=== PATIENT | female | born 1965 | race Caucasian/White ===

== ENCOUNTER 2017-06-21 14:53 | Emergency (ER) | payer OTHER, SELFPAY ==
[2017-06-21 14:56] VITALS: BP 134/76; PULSE 71; RESP 16; TEMP 35.9; O2SAT 100; BMI 53.6
--- NOTE | 2017-06-21 15:32 | CT_ITS ---
STUDY: CT ABDOMEN AND PELVIS WITH CONTRAST REASON FOR EXAM: Female, 51 years old. Right-sided trauma. Fall 10 days ago. Pain RADIATION DOSAGE (If Supplied By Facility): CTDIvol = ( 17.07 ) mGy, DLP = ( 1270.48 ) mGycm TECHNIQUE: Transaxial images were obtained from the dome of the diaphragm to the symphysis pubis without oral contrast. 100 ml of Isovue 300 contrast was administered. Sagittal and coronal images were reconstructed. Individualized dose optimization techniques were used for this CT. COMPARISON: None. FINDINGS: The visualized lung bases are unremarkable. The visualized portions of the heart are within normal limits. There is hepatomegaly with diffuse hepatic enlargement. There are surgical clips in the gallbladder fossa consistent with a prior cholecystectomy. Normal spleen. Normal pancreas. Normal bilateral adrenal glands. Normal right kidney. Normal left kidney. There is a small hiatal hernia. Normal small intestine. Normal colon. The appendix is visualized and appears normal. Normal abdominal aorta. Normal inferior vena cava. Normal retroperitoneum. Normal urinary bladder. There is absence of the uterus consistent with a prior hysterectomy. There is no free fluid in the abdomen or pelvis. There is umbilical hernia containing fat. There are diffuse degenerative changes of the visualized lumbar spine. There is mild L1 compression fracture of uncertain age. CT/Abdomen/Pelvis W IV Cont ONLY IMPRESSION: Hepatomegaly. No mass. No solid organ injury. Small hiatal hernia. Mild L1 compression fracture of uncertain age. Electronically Signed: Geovanny Mg MD at 17:36 EDT , Service support ,
--- NOTE | 2017-06-21 16:03 | ED.DCSUM_ITS ---
- ER Visit Summary Date of Service: 06/21/17 Chief Complaint: Abdominal pain History of Present Illness: The patient is a 51 F states that 10 days ago she fell into her bathtub striking her right side on the top. She states she had some bruising. Her pain was improving until today when it abruptly came worse. She went to the urgent care and was sent to the hospital for evaluation. Patient denies any hematuria. No syncope. No other abdominal pain. States the bruising is gotten better. She states that the skin in the area feels numb . Physical Examination: Afebrile vital signs are stable Gen: Well-nourished well-developed Head: Normocephalic atraumatic Eyes: Perrl EOMI ENT: TMs clear no rhinorrhea moist mucous membranes Neck: Supple no lymphadenopathy no JVD nontender CVS: Regular rate rhythm no murmurs normal S1-S2 Respiratory: No distress clear to auscultation bilaterally chest nontender Abdomen: Soft to palpation in the right upper quadrant and the right lower ribs in the mid axillary line. Nondistended normal bowel sounds no masses Back: Nontender Extremity: Nontender no edema Skin: Normal color there is a small contusion that is greenish the right mid axillary line over the lower ribs. There are several small red isolated papules in the area that she is pointing to the is causing pain. They are not classic for shingles. Neuro: alert orientated ?3 CN II-XII intact normal strength sensation reflexes gait cerebellar Psych: Normal affect normal mood Test Results: CBC and BMP were within normal limits. CT the abdomen pelvis does not demonstrate any obvious trauma. Emergency Department Course and Treatment: Patient will be discharged home. Patient is to monitor for any rash consistent with shingles. Continue treatment with Tylenol or ibuprofen. Follow-up with her doctor Impression: 1. Right abdominal wall pain This note was generated with [employer] dictation software. It may contain incorrect words, spelling, and punctuation that were not noted in review of the chart prior to signing ED Disposition - Plan for ED Patient: Disposition: Home or Assisted Living Chief Complaint: Abd Pain Instructions: ED Abdominal Pain Unkn Cause Referrals: Kel Geronimo DO [Primary Care Provider] - 3-5 Days if not improving
[2017-06-21 16:14] LABS: Absolute Lymphocyte Count 2.05 X10^3/ul (0.83-4.51); Absolute Neutrophil Count 4.4 X10^3/uL (2.0-7.7); Basophil# 0.04 X10^3/uL; Basophil% 0.5 % (0-1); Eosinophil# 0.56 X10^3/uL; Eosinophils% 7.4 % (0-5); Hematocrit 38.5 % (37-47); Hemoglobin 12.4 g/dl (12.0-15.0); Lymphocyte # 2.05 X10^3/ul (4.0); Lymphocyte % 27.2 % (19-41); Mean Corp Hgb Conc 32.2 g/gl (32-36); Mean Corpuscular Hgb 31.6 pg (27.0-32.0); Mean Corpuscular Volume 98.2 fL (81-99); Mean Platelet Vol. 8.9 fl (6.2-12.0); Monocyte# 0.47 X10^3/uL; Monocyte% 6.2 % (0-10); Neutrophil # 4.41 X10^3/uL (2.7-7.7); Neutrophil % 58.4 % (47-70); Platelet Count 356 K/mm3 (150-450); RBC Distribution Width CV 13.2 % (11.6-14.6); RBC Distribution Width SD 46.3 fl (35.1-43.9); Red Blood Count 3.92 M/mm3 (4.2-5.4); White Blood Count 7.6 K/mm3 (4.4-11.0)
[2017-06-21 16:18] LABS: POSITIVE COUNT NO; POSITIVE DIFFERENTIAL NO; POSITIVE MORPHOLOGY NO
[2017-06-21 16:24] LABS: ALB/GLOB Ratio 1.1 RATIO (0.9-2.4); AST(SGOT) 18 U/L (15-37); Alanine Aminotransfer ALT/SGPT 28 U/L (13-56); Alkaline Phosphatase 117 U/L (45-117); Anion Gap 9 (5-15); BUN 25 mg/dL (7-18); BUN/Creat Ratio 27.1 RATIO (10-20); Calcium,Total 8.7 mg/dL (8.5-10.1); Chloride 108 mmol/L (98-107); Creatinine, Serum 0.92 mg/dL (0.55-1.02); EST Glomerular Filtration Rate 68 mL/min (>60); Est Glom Filt Rate - Afr Amer 82 mL/min (>60); Estimated Creatinine Clearance 67.72 ml/min; Globulin 3.5 g/dL (2.2-4.2); Glucose 99 mg/dL (74-106); Potassium 3.8 mmol/L (3.5-5.1); Protein, Total 7.5 g/dL (6.4-8.2); Sodium Level 143 mmol/L (136-145)
[2017-06-21 17:14] VITALS: BP 154/81; PULSE 87; RESP 18; O2SAT 99
[2017-06-21 18:29] VITALS: BP 141/81; PULSE 87; RESP 18; O2SAT 100
== END 2017-06-21 18:29 | disposition home or self-care (01) ==
PROVIDERS: Emergency Provider Emergency Medicine; Family Provider Preventive Medicine Occupational Medicine; PCP Preventive Medicine Occupational Medicine
DX: R10.9 Unspecified abdominal pain (principal); S20.211A Contusion of right front wall of thorax, initial encounter; R23.8 Other skin changes; W18.2XXA Fall in (into) shower or empty bathtub, initial encounter; Y93.9 Activity, unspecified; Y92.9 Unspecified place or not applicable; E66.9 Obesity, unspecified; Z90.49 Acquired absence of other specified parts of digestive tract
CPT/HCPCS: 74177; 80053; 85025; 99283; Q9967; A4216

== ENCOUNTER → 2017-06-23 16:22 | Outpatient (CLI) | payer OTHER, SELFPAY ==
[2017-06-30 14:07] LABS: Immunoglobulin A 199 mg/dL (87-352); Immunoglobulin G 891 mg/dL (700-1600); Immunoglobulin M 57 mg/dL (26-217)
[2017-07-01 11:34] LABS: Immunoglobulin E 1442 IU/mL (0-100)
== END ==
PROVIDERS: Family Provider Preventive Medicine Occupational Medicine; PCP Preventive Medicine Occupational Medicine; Visit Provider Internal Medicine Pulmonary Disease
DX: J18.9 Pneumonia, unspecified organism (principal); Z91.09 Other allergy status, other than to drugs and biological substances
CPT/HCPCS: 36415; 82784; 82785

== ENCOUNTER → 2017-10-21 07:42 | Outpatient (CLI) | payer OTHER, SELFPAY ==
[2017-10-21 10:04] LABS: Absolute Lymphocyte Count 1.51 X10^3/ul (0.83-4.51); Basophil# 0.03 X10^3/uL; Basophil% 0.6 % (0-1); Eosinophil# 0.49 X10^3/uL; Eosinophils% 9.1 % (0-5); Hematocrit 40.1 % (37-47); Hemoglobin 12.5 g/dl (12.0-15.0); Lymphocyte # 1.51 X10^3/ul (4.0); Lymphocyte % 28.2 % (19-41); Mean Corp Hgb Conc 31.2 g/gl (32-36); Mean Corpuscular Hgb 30.6 pg (27.0-32.0); Mean Corpuscular Volume 98.3 fL (81-99); Mean Platelet Vol. 9.3 fl (6.2-12.0); Monocyte# 0.38 X10^3/uL; Monocyte% 7.1 % (0-10); Neutrophil # 2.95 X10^3/uL (2.7-7.7); Platelet Count 298 K/mm3 (150-450); RBC Distribution Width SD 50.7 fl (35.1-43.9); Red Blood Count 4.08 M/mm3 (4.2-5.4); White Blood Count 5.4 K/mm3 (4.4-11.0)
[2017-10-21 10:05] LABS: POSITIVE COUNT NO; POSITIVE DIFFERENTIAL NO; POSITIVE MORPHOLOGY NO
[2017-10-21 10:31] LABS: Vitamin B12 400 pg/mL (211-911); Vitamin D,25 Hydroxy 14.4 ng/mL (29.95-100.01)
[2017-10-21 12:21] LABS: AST(SGOT) 33 U/L (15-37); Alanine Aminotransfer ALT/SGPT 34 U/L (13-56); Albumin, Serum 3.6 g/dL (3.2-5.0); Alkaline Phosphatase 104 U/L (45-117); Anion Gap 6 (5-15); BUN 17 mg/dL (7-18); BUN/Creat Ratio 18.1 RATIO (10-20); Calcium,Total 8.8 mg/dL (8.5-10.1); Chloride 103 mmol/L (98-107); Cholesterol 195 mg/dL (200); Creatinine, Serum 0.94 mg/dL (0.55-1.02); EST Glomerular Filtration Rate 67 mL/min (>60); Est Glom Filt Rate - Afr Amer 81 mL/min (>60); Globulin 3.6 g/dL (2.2-4.2); Glucose 93 mg/dL (74-106); High Density Lipoprotein 45 mg/dL; Potassium 3.9 mmol/L (3.5-5.1); Protein, Total 7.2 g/dL (6.4-8.2); Sodium Level 140 mmol/L (136-145); T4 Free Direct 0.88 ng/dL (0.76-1.46); Thyroid Stim Hormone (TSH) 1.12 uIU/mL (0.358-3.74); Triglycerides 191 mg/dL; Very Low Density Lipoprotein 38 mg/dL (5-40)
== END ==
PROVIDERS: Family Provider Family Medicine; PCP Family Medicine; Visit Provider Family Medicine
DX: E78.5 Hyperlipidemia, unspecified (principal); E03.9 Hypothyroidism, unspecified; Z51.81 Encounter for therapeutic drug level monitoring; E53.8 Deficiency of other specified B group vitamins; E55.9 Vitamin D deficiency, unspecified
CPT/HCPCS: 36415; 80053; 80061; 82306; 82607; 84439; 84443; 85025

== ENCOUNTER → 2017-10-25 14:59 | Outpatient (CLI) | payer OTHER, SELFPAY | PROVIDERS: Family Provider Family Medicine; PCP Family Medicine; Visit Provider Family Medicine | DX: M81.0 Age-related osteoporosis without current pathological fracture (principal) | CPT/HCPCS: 77080 ==

== ENCOUNTER 2017-11-01 14:19 | Outpatient (RCR) | payer OTHER, SELFPAY ==
--- NOTE | 2017-11-01 15:29 | HP.PTEVAL_ITS ---
Patient's Visit Information ELICEO REY is a 52 year old F referred to Physical Therapy by Maddie Mccray DO with a diagnosis of SPONDYLOSIS WITH MYELOPATHY OR RADICULAR,LOW BACK PAIN, CHRONIC PAIN. Date of Evaluation: 11/01/17 Physical Therapist: Panda Nicholson PT, - Visit Plan Frequency: 1VISIT Plan: INSTRUCTED IN APPICATION OF TENS UNIT - Subjective Subjective: This 52 y/o female physical therapy low back pain for many years . Patient has had lumbar 10-12 years ago.Patient has symmtrical lumbar pain described as ache , Symptoms worse with standing ,job demands ,sitting on hard chairs, lifting. Symptoms better with walking. Patient has no parathesia/ tingling. Patient has had prior PT in past didnt helped. Tried chiropractor helped . No injections. Coughing/sneezing increase symptoms. Patient seen DR recommended TENS unit. SOCIAL: . 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 NEURO: inact ,denies parathesia/ tingling,reflexes 2/3. SYMMTRIES: normal. PALPATION: tender L-S. FLEXABLITY: hams min loss. LUMBAR ROM: flexion WFL,extension WFL,side glides WFL. MMT: quad/hams 4/5,hip 4/5,ankle 4/5 - Special Tests L/S Slump test left side: Negative L/S Slump test right side: Negative L/S Left Straight Leg Raise: Negative L/S Right Straight Leg Raise: Negative - Goals Goal 1:: Instructed in TENS UNIT Goal Time Frame: 1VISIT - Rehabilitation Potential Physical Therapy Diagnosis: This patient has symmtrical lumbar painworse with standing and job demands thusbenifit from TENS Rehabilitation Potential: Good - Anticipated Interventions Patient/Client Instruction: Educate patient on: Condition, Plan of Care For the Purpose of:: To decrease pain, To improve ability of physical actions for home/community/work/leisure Other: TENS UNIT Thank you for the opportunity to evaluate your patient. For Medicare and Medicare HMO plans, please review the plan of care and approve it. It will need to be FAXED BACK to us at [phone] for Medicare purposes. Please let me know if there are questions or concerns regarding this plan of care. Physician Signature: Date:
== END 2017-11-01 19:00 | disposition home or self-care (01) ==
LOC: PT 14:19
PROVIDERS: Family Provider Family Medicine; PCP Family Medicine; Visit Provider Family Medicine
DX: M47.816 Spondylosis without myelopathy or radiculopathy, lumbar region (principal); M54.5 Low back pain; G89.29 Other chronic pain
CPT/HCPCS: 97162

== ENCOUNTER → 2018-04-22 10:49 | Outpatient (CLI) | payer OTHER, SELFPAY ==
[2018-04-22 11:49] LABS: Ferritin 75 ng/mL (8-252); Free T3 2.4 pg/mL (2.18-3.98); Iron 88 ug/dL (50-170); T4 Free Direct 0.89 ng/dL (0.76-1.46); Thyroid Stim Hormone (TSH) 1.12 uIU/mL (0.358-3.74)
[2018-04-24 09:06] LABS: Vitamin B12 1448 pg/mL (211-911); Vitamin D,25 Hydroxy 80.9 ng/mL (29.95-100.01)
== END ==
PROVIDERS: Family Provider Family Medicine; PCP Family Medicine; Referring Provider Family Medicine; Visit Provider Family Medicine
DX: E03.9 Hypothyroidism, unspecified (principal); E55.9 Vitamin D deficiency, unspecified; D64.9 Anemia, unspecified; E53.8 Deficiency of other specified B group vitamins; R53.83 Other fatigue
CPT/HCPCS: 36415; 82306; 82607; 82728; 83540; 84439; 84443; 84481

== ENCOUNTER → 2018-10-20 | Outpatient (CLI) | payer OTHER, SELFPAY | END | disposition home or self-care (01) | LOC: BFHLAB 08:51 | PROVIDERS: Family Provider Family Medicine; PCP Family Medicine; Visit Provider Family Medicine | DX: N39.42 Incontinence without sensory awareness (principal); R30.0 Dysuria | CPT/HCPCS: 87086; 87088 ==

== ENCOUNTER 2019-01-03 15:00 | Outpatient (RCR) | payer OTHER, SELFPAY ==
--- NOTE | 2018-11-27 15:01 | HP.PTEVAL_ITS ---
Patient's Visit Information ELICEO REY is a 53 year old F referred to Physical Therapy by Maddie Mccray DO with a diagnosis of LUMBAR DDD, HNP, STENOSIS AND NERVE IMPINGMENT WITH SCHMORL'S NODE.. Date of Evaluation: 11/27/18 Physical Therapist: Isabel Amor PT, Cert MDT - Visit Plan Frequency: 2-3x /Week Duration: 4-6 Weeks Plan: AQUATIC THERAPY FOR PAIN RELEIF, POSTURE CORRECTION/STRENGTHENING, INSTRUCTION IN APPROPRIATE BODY MECHANICS AND ACTIVITY MODIFICATIONS. DLS STARTING WITH A NEUTRAL SPINE. GISELLE LE STRENGTHENING. HEP INSTRUCTION. 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 CURRENTLY NOT OFF WORK. Disability: NO. Present symptoms: LOW BACK PAIN. GISELLE HIP PAIN. MID BACK PAIN. RIB PAIN. NO LE SX'S. Present since: YEARS. Pain Scale: WORST 8/10, LEAST 2/10. Currently: 5/10. Commenced as a result of: NO APPARENT REASON OTHER THAN A LOT OF COUGHING A LONG TIME AGO WITH A COLD. Symptoms at onset: LOW BACK. Worse: WORK, VACUUMING, SWEEPING, SLEEPING IN CERTAIN BEDS, SITTING ON CERTAIN THINGS LIKE BLEECHERS, BENDING, LIFTING AND JUST ABOUT ANY REPEATED MOTION. Better: ICE, REST AND DRUGS. Disturbed sleep: YES. Previous history/Previous treatment: PHYSICAL THERAPY AND MEDICINE. CHIROPRACTIC HISTORY FOR ABOUT 7 - 8 YEARS WITH LAST VISIT TUESDAY. CHIROPRACTIC HELPS SOME. Coughing/sneezing/straining: POSITIVE. Gait: PATIENT REPORTS SHE FEELS HER BACK EFFECTS HER GAIT BUT SHE ALSO HAS FOOT PROBLEMS. STATES SHE FEELS LIKE SHE DOESN'T PICK HER FEET UP LIKE SHE SHOULD AND SHE WALKS MORE FLAT FOOTED. FELL ABOUT 4-6 WEEKS AGO GOING UP ONE STEP AT [employer]. Difficulty initiating urinatin: NO. Accidents: NO. Unexplained weight loss: NO. Imaging: RECENT LUMBAR X-RAY AND CT SCAN SHOWING 3 BULGING DISCS AND LARGE SHMORALS NODE. NO COMPRESSION FX'S. PMH: OSTEOPOROSIS, HYPOTHYROIDISM, GERD, ANEMIA, ASTHMA, H/O RIGHT WRIST FX, CTS, DEPRESSION, H/O MIGRAINES, H/O PNEUMONIA 3 TIMES , MITRAL VALVE PROLAPSE, ENCEPHALITIS 1985, RHEUMATIC FEVER 1986, HEEL SPUR REMOVAL, COCAL CHORD SX X 3, TWO SURGERIES FOR ACID REFLUX - TIGIST. *WEARING LEFT ANKLE BRACE AT WORK (DUE TO BEING ON FEET FOR 8 HOURS) FOR LEFT FOOT TENDON PROBLEM - 5 YEARS* HAS CHOSEN NOT TO HAVE SURGERY. OTHER: PATIENT REPORTS SHE IS LOOKING FOR ANOTHER JOB. - Objective Sitting/Standing Posture: POOR. Lordosis: NORMAL. Lateral shift: NO. Relevant shift: N/A. Active Correction of posture: NE. Other Observations: INDEP GAIT INTO PT WEARING LEFT ANKLE BRACE. PATIENT HAS GISELLE GENU VALGUS AND WALKS WITH INCREASED TRUNK FLEXION. Motor deficit: GISELLE LE'S 5/5 WITH MMT'ING BUT LEFT ANKLE SEVERE PRONATION WITHOUT BRACE. Sensory deficit: SMALL AREA LEFT LATERAL THIGH - DR. MCCRAY AWARE. ROM deficit: GISELLE LE'S WFL. Reflexes: 2/3 GISELLE LE'S. Dural Signs: NEGATIVE GISELLE LE'S. Lumbar mvmt loss: flex - NIL - INCREASED LBP ON RETURN FROM FLEXION. ext - MIN. R SG - MOD - PRODUCES LBP. L SG - MIN. Core strength: POOR. Palpation: ACUTE TENDERNESS WITH PALPATION OF LUMBAR SPINE. ALSO TENDER IN RIGHT MEDIAL INFERIOR SCAP REGION. PATIENT TO CONTACT DR. MCCRAY ABOUT UPPER BACK PAIN. SHE REPORTS HAVING IT BEFORE SHE FELL. - Goals Goal 1:: DECREASE C/O BACK AND HIP PAIN Goal Time Frame: 4-6 Weeks Goal 2:: IMPROVE LIFTING, WALKING, SITTING, STANDING, SLEEP, SOCIAL LIFE, TRAVEL AND WORK FUNCTION. Goal Time Frame: 4-6 Weeks Goal 3:: INSTRUCT IN PROPHYLAXIS Goal Time Frame: 4-6 Weeks - Rehabilitation Potential Rehabilitation Potential: Fair - Anticipated Interventions Patient/Client Instruction: Educate patient on: Condition, Plan of Care, Risk Factors, Benefits of Fitness Program For the Purpose of:: To improve self management Therapeutic Exercise to Include: Strength training, Body mechanics, Postural training, In an aquatic setting, Dynamic Lumbar Stabilization For the Purpose of:: To decrease pain, To improve muscle performance and motor function, To increase tolerance to activity/condition/position, To improve ability of physical actions for home/community/work/leisure Thank you for the opportunity to evaluate your patient. For Medicare and Medicare HMO plans, please review the plan of care and approve it. It will need to be FAXED BACK to us at [phone] for Medicare purposes. For Medicare only, by signing this I certify the plan of care. Please let me know if there are questions or concerns regarding this plan of care. Physician Signature: Date:
--- NOTE | 2019-01-03 15:44 | HP.PTDCSUM ---
HP - PT D/C Summary It has been my pleasure to treat ELICEO REY under orders from Maddie Edmonds DO, for the diagnosis of LUMBAR DDD, HNP, STENOSIS AND NERVE IMPINGMENT WITH SCHMORL'S NODE. for a total of 12 visit(s). Discharge Date: Please see the following information for a summary of their discharge status. 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 STATES SHE HAD A CONSULT WITH DR. GREGORY ABOUT HER BACK AND HE WANTS HER TO CONTINUE HER POOL PROGRAM AND IS GOING TO TRY TO GET AN MRI. STATES INCREASED BACK PAIN TODAY FROM DOING A LOT OF LIFTING AT WORK. - Pain LB Pain Intensity (Out of 10): 4 thoracic Pain Intensity (Out of 10): 2 bilat ribs Pain Intensity (Out of 10): 0 - Overall Improvement % Improvement: 70 - Objective Objective/Function: THIS PATIENT AMBULATES INDEP'LY INTO PT WITH A MILD LIMP ON THE LEFT LE. SHE WALKS WITH GOOD CADANCE AND MILD TRUNK FLEXION. Motor deficit: GISELLE LE'S 5/5 WITH MMT'ING BUT LEFT ANKLE SEVERE PRONATION WITHOUT BRACE. Sensory deficit: SMALL AREA LEFT LATERAL THIGH - DR. EDMONDS AWARE. ROM deficit: GISELLE LE'S WFL. Reflexes: 2/3 GISELLE LE'S. Dural Signs: NEGATIVE GISELLE LE'S. Lumbar mvmt loss: flex - NIL - INCREASED LBP ON RETURN FROM FLEXION. ext - MIN. R SG - MIN. L SG - MIN. Core strength: POOR. Palpation: NO ACUTE TENDERNESS WITH PALPATION OF LUMBAR SPINE REGION TODAY AND THIS HAS IMPROVED SINCE EVAL. OTHER: DR. EDMONDS ORDERED THORACIC X-RAYS AND STATES SHE IS WAITING FOR THE DR'S OFFICE TO CALL HER WITH THE RESULTS. PATIENT REPORTS HER RIGHT UPPER BACK PAIN IS BETTER OVER-ALL BUT STILL AWFUL AT TIMES. STATES SHE PLANS TO FOLLOW UP WITH DR. EDMONDS ABOUT IT AT [facility] [place]. - Goals Goal 1:: DECREASE C/O BACK AND HIP PAIN Goal 2:: IMPROVE LIFTING, WALKING, SITTING, STANDING, SLEEP, SOCIAL LIFE, TRAVEL AND WORK FUNCTION. Goal 3:: INSTRUCT IN PROPHYLAXIS - Plan Plan: D/C TO [facility] PROGRAM AND FOLLOW UP WITH PHYSICIANS NEEDED. PATIENT IS AGREEABLE TO DISCHARGE. - D/C Information If there are questions or concerns regarding this patient's physical therapy, please feel free to call me at [phone]. Thank you for the referral of this patient. Sincerely, Isabel Amor PT, Cert MDT
== END 2019-01-03 16:17 | disposition home or self-care (01) ==
LOC: PT 15:00
PROVIDERS: Family Provider Family Medicine; PCP Family Medicine; Referring Provider Family Medicine; Visit Provider Family Medicine
DX: M54.9 Dorsalgia, unspecified (principal); M51.46 Schmorl's nodes, lumbar region; M51.36 Other intervertebral disc degeneration, lumbar region; M51.26 Other intervertebral disc displacement, lumbar region; M48.02 Spinal stenosis, cervical region; M54.16 Radiculopathy, lumbar region
CPT/HCPCS: 97113; 97162; 97530

== ENCOUNTER 2019-04-16 08:14 | Day surgery (SDC) | payer OTHER, SELFPAY ==
[2019-04-16 08:38] VITALS: BP 134/79; PULSE 62; RESP 16; TEMP 37.5; O2SAT 97; BMI 53.9
[2019-04-16] MEDS: Lactated Ringers 1,000 ML 100 ML IV (08:59)
--- NOTE | 2019-04-16 09:20 | RAD_ITS ---
PROCEDURE: Sacral block. DATE OF EXAMINATION: April 16, 2019. INDICATION: Female, 53 years old. Chronic low back pain. FLUOROSCOPY TIME (if supplied): (14 seconds) minutes/seconds. 2 images were obtained. Intraoperative imaging provided for sacral block. RAD/Fluor Guidance for Spine Inj IMPRESSION: Intraoperative imaging provided for sacral block. Electronically Signed: Zoran Fuentes, at 15:46 EST , Service support ,
[2019-04-16] MEDS: Bupivacaine 0.25% 30 ML Vial (09:39)
[2019-04-16] MEDS: MethylPREDNISolone Acetate 80 MG/ML Vial (09:39)
[2019-04-16] MEDS: 0.9% Normal Saline (Pres. free 10 ML Vial (09:41)
[2019-04-16 09:44] VITALS: BP 107/71; BP 134/79; PULSE 73; RESP 16; TEMP 36.4; O2SAT 96
[2019-04-16 09:50] VITALS: BP 119/75; BP 134/79; PULSE 64; RESP 16; O2SAT 97
[2019-04-16 09:55] VITALS: BP 122/74; BP 134/79; PULSE 71; RESP 16; O2SAT 98
[2019-04-16 10:00] VITALS: BP 131/77; BP 134/79; PULSE 71; RESP 16; TEMP 36.6; O2SAT 97
[2019-04-16 10:20] VITALS: BP 134/79
--- NOTE | 2019-04-16 14:15 | PCM.OPRPT ---
Report of Operation Date of Procedure: 04/16/19 Description of Surgical Findings:: PREOPERATIVE DIAGNOSIS: Lumbosacral radiculopathy, lumbosacral degenerative disc disease, lumbosacral spinal stenosis POSTOPERATIVE DIAGNOSIS: Lumbosacral radiculopathy, lumbosacral degenerative disc disease, lumbosacral spinal stenosis PROCEDURE PERFORMED: Caudal epidural steroid injection. ANESTHESIA: MAC. BLOOD LOSS: Minimal. COMPLICATIONS: None. DESCRIPTION OF PROCEDURE: History and physical of today was reviewed. Risks and benefits of the procedure were explained. The patient understood and agreed to proceed. Informed consent was obtained. IV inserted per routine protocol. The patient was taken to the operating room and placed in the prone position with a pillow positioned underneath the abdomen. The lower back and tailbone area was prepped and draped in a sterile fashion using iodine x3. Under fluoroscopy guidance on a lateral view, the caudal space was identified. The skin and subcutaneous tissue was anesthetized with approximately 3 mL of 1% lidocaine using a 25-gauge regular needle. Under direct visualization with fluoroscopy, using a 22-gauge 3-1/2-inch spinal needle, the needle was advanced via the skin through the sacral hiatus. The tip of the needle was passed through the sacrococcygeal ligament and advanced to approximately S4 area. After negative aspiration of blood or CSF, a total of 3 mL of contrast was injected to confirm correct placement of the needle as well as cephalad spread. The spread was followed to approximately L5 area. After confirmation on AP as well as lateral view and repeated negative aspiration, a total of 15 mL of preservative-free 0.125% Marcaine with 80 mg of Depo-Medrol was injected easily. The needle was then removed intact. The patient experienced no sign or symptoms of intrathecal or intravascular injection. The patient experienced no paresthesia. The procedure was completed without any apparent difficulty or any complications. The patient appeared to tolerate it well. ASSESSMENT AND PLAN: This is a 53-year-old female with lumbosacral radiculopathy, lumbosacral degenerative disc disease, lumbosacral spinal stenosis status post caudal epidural steroid injection patient will continue her current medications patient found approximately 2 weeks for reevaluation.
== END 2019-04-16 10:22 | disposition home or self-care (01) ==
LOC: SDC 08:16 → AC 08:22
PROVIDERS: PCP Family Medicine; Referring Provider Anesthesiology Pain Medicine; Visit Provider Anesthesiology Pain Medicine
PROC: 3E0S3BZ Introduction of Anesthetic Agent into Epidural Space, Percutaneous Approach (ICD-10-PCS; CPT 62282; principal; 2019-04-16 09:15)
DX: M47.27 Other spondylosis with radiculopathy, lumbosacral region (principal); M51.17 Intervertebral disc disorders with radiculopathy, lumbosacral region; M46.96 Unspecified inflammatory spondylopathy, lumbar region; M48.07 Spinal stenosis, lumbosacral region; J45.909 Unspecified asthma, uncomplicated; K21.9 Gastro-esophageal reflux disease without esophagitis; M19.90 Unspecified osteoarthritis, unspecified site; F32.9 Major depressive disorder, single episode, unspecified; E03.9 Hypothyroidism, unspecified; M81.0 Age-related osteoporosis without current pathological fracture; G47.30 Sleep apnea, unspecified; Z91.19 Patient's noncompliance with other medical treatment and regimen; G25.81 Restless legs syndrome; K44.9 Diaphragmatic hernia without obstruction or gangrene; K57.90 Diverticulosis of intestine, part unspecified, without perforation or abscess without bleeding; D51.9 Vitamin B12 deficiency anemia, unspecified; Z78.0 Asymptomatic menopausal state; Z79.899 Other long term (current) drug therapy
CPT/HCPCS: 62323; 64483; 77003; J3490

== ENCOUNTER → 2019-05-03 14:04 | Outpatient (CLI) | payer OTHER, SELFPAY ==
[2019-04-16 08:38] VITALS: BMI 53.9
[2019-05-03 16:28] LABS: Ferritin 21 ng/mL (8-252); Iron 82 ug/dL (50-170); Iron Binding Capacity,Total 387 ug/dL (250-450); PERCENT IRON SATURATION 21.2 % (15.0-55.0)
== END ==
PROVIDERS: PCP Family Medicine; Referring Provider Internal Medicine Pulmonary Disease; Visit Provider Internal Medicine Pulmonary Disease
DX: G25.81 Restless legs syndrome (principal); G47.33 Obstructive sleep apnea (adult) (pediatric)
CPT/HCPCS: 36415; 82728; 83540; 83550

== ENCOUNTER → 2019-05-09 13:52 | Outpatient (CLI) | payer OTHER, SELFPAY ==
[2019-04-16 08:38] VITALS: BMI 53.9
[2019-05-09 15:46] LABS: Absolute Lymphocyte Count 1.65 X10^3/uL (0.83-4.51); Absolute Neutrophil Count 4.8 X10^3/uL (2.0-7.7); Basophil# 0.03 X10^3/uL; Basophil% 0.4 % (0-1); Eosinophil# 0.29 X10^3/uL; Hematocrit 36.3 % (37-47); Hemoglobin 11.6 g/dL (12.0-15.0); Lymphocyte # 1.65 X10^3/ul (4.0); Lymphocyte % 22.6 % (19-41); Mean Corpuscular Hgb 31.5 pg (27.0-32.0); Mean Corpuscular Volume 98.6 fL (81-99); Mean Platelet Vol. 8.8 fl (6.2-12.0); Monocyte# 0.56 X10^3/uL; Monocyte% 7.7 % (0-10); NRBC Flagged by Analyzer 0 % (0-5); Neutrophil # 4.75 X10^3/uL (2.7-7.7); Platelet Count 321 K/mm3 (150-450); RBC Distribution Width CV 13.1 % (11.6-14.6); RBC Distribution Width SD 47.5 fl (35.1-43.9); Red Blood Count 3.68 M/mm3 (4.2-5.4); White Blood Count 7.3 K/mm3 (4.4-11.0)
[2019-05-09 16:02] LABS: Vitamin B12 1562 pg/mL (211-911); Vitamin D,25 Hydroxy 33.5 ng/mL
[2019-05-09 16:10] LABS: AST(SGOT) 18 U/L (15-37); Alanine Aminotransfer ALT/SGPT 27 U/L (13-56); Albumin, Serum 3.7 g/dL (3.2-5.0); Alkaline Phosphatase 81 U/L (45-117); Anion Gap 6 (5-15); BUN 17 mg/dL (7-18); BUN/Creat Ratio 19.1 RATIO (10-20); Calcium,Total 8.7 mg/dL (8.5-10.1); Chloride 106 mmol/L (98-107); Creatinine, Serum 0.89 mg/dL (0.55-1.02); EST Glomerular Filtration Rate 70 mL/min (>60); Est Glom Filt Rate - Afr Amer 85 mL/min (>60); Free T3 2.4 pg/mL (2.18-3.98); Globulin 3.7 g/dL (2.2-4.2); Glucose 99 mg/dL (74-106); Potassium 3.7 mmol/L (3.5-5.1); Protein, Total 7.4 g/dL (6.4-8.2); Sodium Level 140 mmol/L (136-145); T4 Free Direct 1.04 ng/dL (0.76-1.46); Thyroid Stim Hormone (TSH) 0.98 uIU/mL (0.358-3.74)
== END ==
PROVIDERS: PCP Family Medicine; Referring Provider Family Medicine; Visit Provider Family Medicine
DX: E03.9 Hypothyroidism, unspecified (principal); E55.9 Vitamin D deficiency, unspecified; Z51.81 Encounter for therapeutic drug level monitoring; E53.8 Deficiency of other specified B group vitamins
CPT/HCPCS: 36415; 80053; 82306; 82607; 84439; 84443; 84481; 85025

== ENCOUNTER → 2019-06-25 08:55 | Outpatient (CLI) | payer OTHER, SELFPAY ==
--- NOTE | 2019-06-25 09:00 | RAD_ITS ---
STUDY: X-RAY CHEST REASON FOR EXAM: Female, 53 years old. DYSPNEA, BILAT UPPER EXTREMITY SWELLING TECHNIQUE: PA and lateral views of the chest. COMPARISON: None. FINDINGS: The lungs are clear and expanded. There is no demonstrated pleural abnormality. Normal size heart. Normal mediastinum and buck. Normal visualized pulmonary arteries. Normal visualized aortic arch and descending thoracic aorta. There are degenerative changes of the visualized thoracic spine. Healed right rib fracture. There is no demonstrated abnormality of the visualized soft tissue structures of the upper abdomen. RAD/Chest PA and Lateral IMPRESSION: No acute abnormality is seen. Electronically Signed: Zoran Fuentes, at 9:28 EDT , Service support ,
[2019-06-25 09:59] LABS: Hematocrit 40.9 % (37-47); Mean Corp Hgb Conc 31.8 g/dL (32-36); Mean Corpuscular Hgb 30.9 pg (27.0-32.0); Mean Corpuscular Volume 97.1 fL (81-99); Mean Platelet Vol. 8.8 fl (6.2-12.0); Platelet Count 335 K/mm3 (150-450); RBC Distribution Width CV 12.8 % (11.6-14.6); Red Blood Count 4.21 M/mm3 (4.2-5.4); White Blood Count 7.8 K/mm3 (4.4-11.0)
[2019-06-25 10:19] LABS: AST(SGOT) 21 U/L (15-37); Alanine Aminotransfer ALT/SGPT 24 U/L (13-56); Albumin, Serum 3.6 g/dL (3.2-5.0); Alkaline Phosphatase 124 U/L (45-117); Anion Gap 7 (5-15); BUN 18 mg/dL (7-18); CPK Total, Creatine Kinase 87 U/L (26-192); Calcium,Total 8.1 mg/dL (8.5-10.1); Chloride 106 mmol/L (98-107); EST Glomerular Filtration Rate 69 mL/min (>60); Est Glom Filt Rate - Afr Amer 84 mL/min (>60); Free T3 2.8 pg/mL (2.18-3.98); Globulin 3.6 g/dL (2.2-4.2); Glucose 147 mg/dL (74-106); Potassium 3.4 mmol/L (3.5-5.1); Protein, Total 7.2 g/dL (6.4-8.2); Sodium Level 139 mmol/L (136-145); T4 Free Direct 0.88 ng/dL (0.76-1.46); Thyroid Stim Hormone (TSH) 2.47 uIU/mL (0.358-3.74)
== END ==
PROVIDERS: PCP Family Medicine; Referring Provider Family Medicine; Visit Provider Family Medicine
DX: R06.00 Dyspnea, unspecified (principal); R60.9 Edema, unspecified; E03.9 Hypothyroidism, unspecified; I50.810 Right heart failure, unspecified
CPT/HCPCS: 36415; 71046; 80053; 82550; 83880; 84439; 84443; 84481; 84484; 85027

== ENCOUNTER → 2019-07-19 07:41 | Outpatient (CLI) | payer OTHER, SELFPAY ==
[2019-07-19 10:48] LABS: Absolute Lymphocyte Count 1.86 X10^3/uL (0.83-4.51); Absolute Neutrophil Count 3.9 X10^3/uL (2.0-7.7); Basophil# 0.05 X10^3/uL; Basophil% 0.7 % (0-1); Eosinophil# 0.51 X10^3/uL; Eosinophils% 7.4 % (0-5); Hematocrit 38.4 % (37-47); Hemoglobin 12.1 g/dL (12.0-15.0); Lymphocyte # 1.86 X10^3/ul (4.0); Lymphocyte % 27.1 % (19-41); Mean Corp Hgb Conc 31.5 g/dL (32-36); Mean Corpuscular Hgb 30.7 pg (27.0-32.0); Mean Corpuscular Volume 97.5 fL (81-99); Mean Platelet Vol. 8.7 fl (6.2-12.0); Monocyte# 0.54 X10^3/uL; Monocyte% 7.9 % (0-10); NRBC Flagged by Analyzer 0 % (0-5); Neutrophil # 3.88 X10^3/uL (2.7-7.7); Neutrophil % 56.5 % (47-70); Platelet Count 354 K/mm3 (150-450); RBC Distribution Width CV 13.1 % (11.6-14.6); RBC Distribution Width SD 47.1 fl (35.1-43.9); Red Blood Count 3.94 M/mm3 (4.2-5.4); White Blood Count 6.9 K/mm3 (4.4-11.0)
[2019-07-19 11:05] LABS: AST(SGOT) 15 U/L (15-37); Alanine Aminotransfer ALT/SGPT 22 U/L (13-56); Albumin, Serum 3.4 g/dL (3.2-5.0); Alkaline Phosphatase 80 U/L (45-117); Anion Gap 5 (5-15); BUN 25 mg/dL (7-18); BUN/Creat Ratio 28.9 RATIO (10-20); CRP < 2.90 mg/L (0.0-3.0); Calcium,Total 8.8 mg/dL (8.5-10.1); Chloride 105 mmol/L (98-107); Creatinine, Serum 0.86 mg/dL (0.55-1.02); EST Glomerular Filtration Rate 73 mL/min (>60); Est Glom Filt Rate - Afr Amer 88 mL/min (>60); Globulin 3.4 g/dL (2.2-4.2); Glucose 108 mg/dL (74-106); Potassium 3.8 mmol/L (3.5-5.1); Protein, Total 6.8 g/dL (6.4-8.2); Rheumatoid Factor < 10.0 IU/mL (<15); Sodium Level 139 mmol/L (136-145)
[2019-07-19 11:08] LABS: Hemoglobin A1c 6.2 % (4.2-6.3)
[2019-07-19 11:12] LABS: Erythrocyte Sedimentation Rate 15 mm/hr (0-30)
[2019-07-21 03:25] LABS: CCP IgG Antibodies 11 units (0-19)
== END ==
PROVIDERS: PCP Family Medicine; Referring Provider Family Medicine; Visit Provider Family Medicine
DX: M79.10 Myalgia, unspecified site (principal); M25.50 Pain in unspecified joint; R73.01 Impaired fasting glucose; Z51.81 Encounter for therapeutic drug level monitoring; E87.6 Hypokalemia; D50.9 Iron deficiency anemia, unspecified; E53.8 Deficiency of other specified B group vitamins; E55.9 Vitamin D deficiency, unspecified
CPT/HCPCS: 36415; 80053; 83036; 85025; 85652; 86038; 86140; 86200; 86431

== ENCOUNTER → 2019-09-13 09:46 | Outpatient (CLI) | payer OTHER, SELFPAY ==
[2019-09-13 09:56] LABS: Mucous, Urine 0 SEEN /hpf (<or=2+); Red Blood Cells-Urine 0 SEEN /hpf (0-5); White Blood Cells 0 SEEN /hpf (0-5)
[2019-09-13 12:42] LABS: Absolute Lymphocyte Count 1.48 X10^3/uL (0.83-4.51); Absolute Neutrophil Count 3.8 X10^3/uL (2.0-7.7); Basophil# 0.03 X10^3/uL; Basophil% 0.5 % (0-1); Eosinophil# 0.34 X10^3/uL; Eosinophils% 5.6 % (0-5); Hematocrit 39.7 % (37-47); Hemoglobin 12.7 g/dL (12.0-15.0); Lymphocyte # 1.48 X10^3/ul (4.0); Lymphocyte % 24.5 % (19-41); Mean Corpuscular Hgb 31.8 pg (27.0-32.0); Mean Corpuscular Volume 99.3 fL (81-99); Mean Platelet Vol. 9.1 fl (6.2-12.0); Monocyte% 6.6 % (0-10); NRBC Flagged by Analyzer 0 % (0-5); Neutrophil # 3.77 X10^3/uL (2.7-7.7); Neutrophil % 62.3 % (47-70); Platelet Count 337 K/mm3 (150-450); RBC Distribution Width CV 13.2 % (11.6-14.6); RBC Distribution Width SD 48.3 fl (35.1-43.9); White Blood Count 6.1 K/mm3 (4.4-11.0)
[2019-09-13 12:53] LABS: Color, Urine Straw (Yellow); Glucose, Dipstick Normal (Normal); Ketone-Dipstick Negative (Negative); Leukocyte Esterase-Dipstick Negative /ul (Negative); Nitrite-Dipstick Negative (Negative); Occult Blood-Urine Negative /ul (Negative); Protein-Dipstick Negative (Negative); Urine Bilirubin Dipstick Negative (Negative); Urine Clarity Clear (Clear); Urine Urobilinogen Normal (Normal)
[2019-09-13 13:15] LABS: Bacteria 1+ /hpf (None Seen); Squamous Epithelial Cells - UA 0-5 SEEN /hpf (5-10)
[2019-09-13 13:37] LABS: ALB/GLOB Ratio 0.9 RATIO (0.9-2.4); AST(SGOT) 17 U/L (15-37); Alanine Aminotransfer ALT/SGPT 26 U/L (13-56); Albumin, Serum 3.6 g/dL (3.2-5.0); Alkaline Phosphatase 90 U/L (45-117); Anion Gap 4 (5-15); BUN 18 mg/dL (7-18); Calcium,Total 8.8 mg/dL (8.5-10.1); Chloride 106 mmol/L (98-107); EST Glomerular Filtration Rate 62 mL/min (>60); Est Glom Filt Rate - Afr Amer 74 mL/min (>60); Globulin 3.8 g/dL (2.2-4.2); Glucose 97 mg/dL (74-106); Potassium 3.6 mmol/L (3.5-5.1); Protein, Total 7.4 g/dL (6.4-8.2); Sodium Level 140 mmol/L (136-145); Thyroid Stim Hormone (TSH) 2.28 uIU/mL (0.358-3.74)
[2019-09-13 15:29] LABS: Vitamin D,25 Hydroxy 45.8 ng/mL
[2019-09-15 14:07] LABS: RNP Ab 0.2 AI (0.0-0.9); SJOGREN'S Anti-SS-A test < 0.2 AI (0.0-0.9); SJOGREN'S Anti-SS-B test < 0.2 AI (0.0-0.9); Smith Ab <0.2 AI (0.0-0.9)
[2019-09-15 15:11] LABS: Anti-dsDNA Ab <1 IU/mL (0-9)
[2019-09-19 12:07] LABS: Complement C3 141 mg/dL (82-167); PROEL- A/G Ratio 1.2 (0.7-1.7); PROEL- Albumin 3.7 g/dL (2.9-4.4); PROEL- Alpha-1 Globulin 0.3 g/dL (0.0-0.4); PROEL- Alpha-2 Globulin 0.7 g/dL (0.4-1.0); PROEL- Beta Globulin 1.1 g/dL (0.7-1.3); PROEL- Gamma Globulin 0.9 g/dL (0.4-1.8); PROEL- TOTAL PROTEIN 6.7 g/dL (6.0-8.5)
[2019-09-19 16:40] LABS: HLA B27 Negative (.)
== END ==
PROVIDERS: PCP Family Medicine
DX: M81.0 Age-related osteoporosis without current pathological fracture (principal); R76.8 Other specified abnormal immunological findings in serum; L40.9 Psoriasis, unspecified
CPT/HCPCS: 36415; 80053; 81001; 81374; 82306; 84165; 84443; 85025; 86160; 86225; 86235

== ENCOUNTER → 2019-10-05 07:53 | Outpatient (CLI) | payer OTHER, SELFPAY ==
--- NOTE | 2019-10-05 07:55 | ECHOD_ITS ---
Reason For Study: Dyspnea/Edema Procedure This was a 2D Doppler, Color Flow transthoracic echocardiogram. Technically difficult due to body habitus. Exam performed in department. Left Ventricle Normal size and thickness. The estimated ejection fraction is 65 %. Normal diastology for age. No regional wall motion abnormalities noted. Right Ventricle Normal size and thickness. Normal systolic function. Atria Normal left atrium. Normal right atrium. Normal atrial septum. Mitral Valve The mitral valve is structurally normal. No prolapse or stenosis seen. Tricuspid Valve Normal tricuspid valve. Unable to estimate RV systolic pressure due to insufficient tricuspid regurgitant envelope. Aortic Valve Normal aortic valve. Trisinus/trileaflet aortic valve. Pulmonic Valve Normal pulmonic valve. Great Vessels Normal aortic root. Normal arch. Normal inferior vena cava. Inferior vena cava collapse with sniff. Pericardium/Pleural No pericardial effusion. MMode/2D Measurements & Calculations LVIDd: 4.4 cm IVSd: 1.2 cm LA dimension: 3.5 cm LVIDs: 2.4 cm LVPWd: 0.85 cm RVDd: 2.9 cm FS: 44.4 % LAV(MOD-bp): 51.2 ml LA A4 area: 17.8 cm2 RA A4 area: 17.0 cm2 LAV(MOD-bp) Indexed: 20.3 ml/m2 LAV(MOD-sp2): 52.6 ml LAV(MOD-sp4): 45.5 ml Time Measurements MV dec time: 0.20 sec Doppler Measurements & Calculations MV E max xander: 88.7 cm/sec Lat Peak E' Xander: 13.2 cm/sec Med Peak E' Xander: 10.6 cm/sec MV A max xander: 63.4 cm/sec E/E' lat: 6.7 E/E' med: 8.4 MV E/A: 1.4 MV V2 max: 92.5 cm/sec MV P1/2t max xander: 93.4 cm/sec Ao V2 max: 118.6 cm/sec MV max P.4 mmHg MV P1/2t: 97.6 msec Ao max P.6 mmHg MV V2 mean: 50.8 cm/sec MV dec slope: 280.3 cm/sec2 Ao V2 mean: 85.6 cm/sec MV mean P.2 mmHg MVA(P1/2t): 2.3 cm2 Ao mean P.3 mmHg MV V2 VTI: 26.6 cm Ao V2 VTI: 26.4 cm LV V1 max: 108.1 cm/sec PA V2 max: 89.6 cm/sec LV V1 max P.7 mmHg LV V1 mean P.3 mmHg LV V1 mean: 70.5 cm/sec LV V1 VTI: 23.4 cm Interpretation Summary The estimated ejection fraction is 65 %. Normal diastology for age. Unable to estimate RV systolic pressure due to insufficient tricuspid regurgitant envelope. There is no comparison study available. Ordering Physician: Maddie Mccray Referring Physician: Maddie Mccray Performed By: Henry Harrell RCS
== END ==
PROVIDERS: PCP Family Medicine; Referring Provider Family Medicine; Visit Provider Family Medicine
DX: R06.00 Dyspnea, unspecified (principal); R60.9 Edema, unspecified
CPT/HCPCS: 93306

== ENCOUNTER → 2019-12-05 16:26 | Outpatient (CLI) | payer OTHER, SELFPAY ==
[2019-12-05 16:46] LABS: Absolute Lymphocyte Count 1.76 X10^3/uL (0.83-4.51); Absolute Neutrophil Count 4.6 X10^3/uL (2.0-7.7); Basophil# 0.04 X10^3/uL; Basophil% 0.5 % (0-1); Eosinophil# 0.36 X10^3/uL; Eosinophils% 4.9 % (0-5); Hematocrit 38.7 % (37-47); Hemoglobin 12.5 g/dL (12.0-15.0); Lymphocyte # 1.76 X10^3/ul (4.0); Lymphocyte % 24.1 % (19-41); Mean Corp Hgb Conc 32.3 g/dL (32-36); Mean Corpuscular Hgb 31.7 pg (27.0-32.0); Mean Corpuscular Volume 98.2 fL (81-99); Mean Platelet Vol. 8.5 fl (6.2-12.0); Monocyte# 0.55 X10^3/uL; Monocyte% 7.5 % (0-10); NRBC Flagged by Analyzer 0 % (0-5); Neutrophil # 4.58 X10^3/uL (2.7-7.7); Neutrophil % 62.7 % (47-70); Platelet Count 306 K/mm3 (150-450); RBC Distribution Width CV 14.5 % (11.6-14.6); RBC Distribution Width SD 51.5 fl (35.1-43.9); Red Blood Count 3.94 M/mm3 (4.2-5.4); White Blood Count 7.3 K/mm3 (4.4-11.0)
[2019-12-05 16:54] LABS: Erythrocyte Sedimentation Rate 21 mm/hr (0-30)
[2019-12-05 18:25] LABS: ALB/GLOB Ratio 1.1 RATIO (0.9-2.4); AST(SGOT) 19 U/L (15-37); Alanine Aminotransfer ALT/SGPT 28 U/L (13-56); Alkaline Phosphatase 73 U/L (45-117); Anion Gap 6 (5-15); BUN 23 mg/dL (7-18); BUN/Creat Ratio 22.1 RATIO (10-20); CRP < 2.90 mg/L (0.0-3.0); Calcium,Total 9.2 mg/dL (8.5-10.1); Chloride 104 mmol/L (98-107); Creatinine, Serum 1.04 mg/dL (0.55-1.02); EST Glomerular Filtration Rate 59 mL/min (>60); Est Glom Filt Rate - Afr Amer 71 mL/min (>60); Globulin 3.7 g/dL (2.2-4.2); Glucose 97 mg/dL (74-106); Potassium 3.9 mmol/L (3.5-5.1); Protein, Total 7.7 g/dL (6.4-8.2); Sodium Level 137 mmol/L (136-145)
== END ==
PROVIDERS: PCP Family Medicine
DX: Z79.899 Other long term (current) drug therapy (principal)
CPT/HCPCS: 36415; 80053; 85025; 85652; 86140

== ENCOUNTER → 2020-02-12 07:51 | Outpatient (CLI) | payer OTHER, SELFPAY ==
[2020-02-12 10:01] LABS: Erythrocyte Sedimentation Rate 6 mm/hr (0-30)
[2020-02-12 10:03] LABS: Absolute Neutrophil Count 4.1 X10^3/uL (2.0-7.7); Basophil# 0.04 X10^3/uL; Basophil% 0.6 % (0-1); Eosinophil# 0.41 X10^3/uL; Eosinophils% 6.2 % (0-5); Hematocrit 39.4 % (37-47); Hemoglobin 12.8 g/dL (12.0-15.0); Lymphocyte % 24.3 % (19-41); Mean Corp Hgb Conc 32.5 g/dL (32-36); Mean Corpuscular Hgb 33.5 pg (27.0-32.0); Mean Corpuscular Volume 103.1 fL (81-99); Mean Platelet Vol. 8.9 fl (6.2-12.0); Monocyte# 0.43 X10^3/uL; Monocyte% 6.5 % (0-10); NRBC Flagged by Analyzer 0 % (0-5); Neutrophil # 4.07 X10^3/uL (2.7-7.7); Neutrophil % 61.8 % (47-70); Platelet Count 314 K/mm3 (150-450); RBC Distribution Width CV 14.6 % (11.6-14.6); RBC Distribution Width SD 54.1 fl (35.1-43.9); Red Blood Count 3.82 M/mm3 (4.2-5.4); White Blood Count 6.6 K/mm3 (4.4-11.0)
[2020-02-12 10:12] LABS: ALB/GLOB Ratio 0.9 RATIO (0.9-2.4); AST(SGOT) 22 U/L (15-37); Alanine Aminotransfer ALT/SGPT 32 U/L (13-56); Albumin, Serum 3.6 g/dL (3.2-5.0); Alkaline Phosphatase 88 U/L (45-117); Anion Gap 4 (5-15); BUN 18 mg/dL (7-18); BUN/Creat Ratio 19.7 RATIO (10-20); CRP 3.69 mg/L (0.0-3.0); Calcium,Total 8.7 mg/dL (8.5-10.1); Chloride 108 mmol/L (98-107); Creatinine, Serum 0.92 mg/dL (0.55-1.02); EST Glomerular Filtration Rate 68 mL/min (>60); Est Glom Filt Rate - Afr Amer 82 mL/min (>60); Globulin 3.8 g/dL (2.2-4.2); Glucose 122 mg/dL (74-106); Potassium 3.4 mmol/L (3.5-5.1); Protein, Total 7.4 g/dL (6.4-8.2); Sodium Level 140 mmol/L (136-145)
== END ==
PROVIDERS: PCP Family Medicine
DX: Z79.899 Other long term (current) drug therapy (principal)
CPT/HCPCS: 36415; 80053; 85025; 85652; 86140

== ENCOUNTER → 2020-02-22 14:42 | Outpatient (CLI) | payer OTHER, SELFPAY ==
[2020-02-25 09:14] LABS: HIV - WCH Non-Reactive (Nonreactive); Hepatitis B Surface Antigen Non-Reactive (Nonreactive); Hepatitis C Antibody Non-Reactive (Nonreactive)
[2020-02-26 20:08] LABS: QNTFERON TB Mitogen Value > 10.00 IU/mL (.); QNTFERON TB Nil Value 0.12 IU/mL (.); QNTFERON TB1+ Ag Value 0.12 IU/mL (.); QNTFERON TB2+ Ag Value 0.12 IU/mL (.)
[2020-02-27 06:27] LABS: Hepatitis B Core Ab Total Negative (Negative); QNTIFERON TB Positive Criteria Negative (Negative)
== END ==
PROVIDERS: PCP Family Medicine
DX: Z79.899 Other long term (current) drug therapy (principal)
CPT/HCPCS: 86480; 86703; 86704; 86803; 87340

== ENCOUNTER → 2020-02-25 16:02 | Outpatient (CLI) | payer OTHER, SELFPAY ==
[2020-02-25 19:01] LABS: Amphetamine Urine VISTA NEGATIVE (<1000 ng/mL); Barbiturate Urine VISTA NEGATIVE (< 200 ng/mL); Benzodiazepine Urine VISTA NEGATIVE (< 200 ng/mL); Cocaine Urine VISTA NEGATIVE (< 300 ng/mL); Ecstacy Urine VISTA NEGATIVE (< 500 ng/mL); Methadone Urine VISTA NEGATIVE (< 300 ng/mL); PCP Urine VISTA NEGATIVE (< 25 ng/mL); THC Urine VISTA NEGATIVE (< 50 ng/mL); Vista UDS pH Range 6
== END ==
PROVIDERS: PCP Family Medicine; Referring Provider Internal Medicine Pulmonary Disease; Visit Provider Internal Medicine Pulmonary Disease
DX: G47.33 Obstructive sleep apnea (adult) (pediatric) (principal); G47.10 Hypersomnia, unspecified
CPT/HCPCS: 80307

== ENCOUNTER → 2020-03-24 14:14 | Outpatient (CLI) | payer OTHER, SELFPAY ==
[2020-03-24 18:28] LABS: Free T3 2.2 pg/mL (2.18-3.98); T4 Free Direct 1.07 ng/dL (0.76-1.46); Thyroid Stim Hormone (TSH) 0.63 uIU/mL (0.358-3.74)
== END ==
PROVIDERS: PCP Family Medicine; Referring Provider Family Medicine; Visit Provider Family Medicine
DX: E03.9 Hypothyroidism, unspecified (principal)
CPT/HCPCS: 36415; 84439; 84443; 84481

== ENCOUNTER → 2020-07-22 14:26 | Outpatient (CLI) | payer OTHER, SELFPAY ==
[2020-07-22 18:09] LABS: Absolute Lymphocyte Count 1.92 X10^3/uL (0.83-4.51); Absolute Neutrophil Count 5.4 X10^3/uL (2.0-7.7); Basophil# 0.05 X10^3/uL; Basophil% 0.6 % (0-1); Eosinophils% 10.1 % (0-5); Hematocrit 40.8 % (37-47); Hemoglobin 12.8 g/dL (12.0-15.0); Lymphocyte # 1.92 X10^3/ul (0.83-4.51); Lymphocyte % 21.5 % (19-41); Mean Corp Hgb Conc 31.4 g/dL (32-36); Mean Corpuscular Hgb 31.8 pg (27.0-32.0); Mean Corpuscular Volume 101.2 fL (81-99); Mean Platelet Vol. 9.1 fl (6.2-12.0); Monocyte# 0.67 X10^3/uL; Monocyte% 7.5 % (0-10); NRBC Flagged by Analyzer 0 % (0-5); Neutrophil # 5.37 X10^3/uL (2.7-7.7); Neutrophil % 60.1 % (47-70); Platelet Count 370 K/mm3 (150-450); RBC Distribution Width CV 13.2 % (11.6-14.6); RBC Distribution Width SD 49.5 fl (35.1-43.9); Red Blood Count 4.03 M/mm3 (4.2-5.4); White Blood Count 8.9 K/mm3 (4.4-11.0)
[2020-07-22 18:25] LABS: AST(SGOT) 23 U/L (15-37); Alanine Aminotransfer ALT/SGPT 33 U/L (13-56); Albumin, Serum 3.7 g/dL (3.2-5.0); Alkaline Phosphatase 71 U/L (45-117); Bilirubin, Direct 0.16 mg/dL (0.00-0.30); Globulin 3.3 g/dL (2.2-4.2)
[2020-07-22 18:36] LABS: Ferritin 84 ng/mL (8-252)
== END ==
PROVIDERS: PCP Family Medicine; Referring Provider Internal Medicine Pulmonary Disease; Visit Provider Internal Medicine Pulmonary Disease
DX: G25.81 Restless legs syndrome (principal); G47.33 Obstructive sleep apnea (adult) (pediatric); Z79.899 Other long term (current) drug therapy
CPT/HCPCS: 36415; 80076; 82728; 85025

== ENCOUNTER 2020-07-28 08:25 | Day surgery (SDC) | payer OTHER, SELFPAY ==
[2020-07-28 08:57] VITALS: BP 137/76; PULSE 80; RESP 18; TEMP 36.1; O2SAT 98; BMI 58.1
[2020-07-28] MEDS: Lactated Ringers 1,000 ML 100 ML IV (09:07)
--- NOTE | 2020-07-28 09:25 | RAD_ITS ---
STUDY: C-ARM FILM FOR CAUDAL BLOCK REASON FOR EXAM: Female, 59 years old. CAUDAL BLOCK RADIATION DOSAGE (If Supplied By Facility): CTDIvol = ( ) mGy, DLP = ( ) mGycm. Individualized dose optimization techniques were used for this CT.? FLUOROSCOPY TIME (if supplied): ( 12 ) seconds, two C-arm images obtained TECHNIQUE: 2 limited lateral C-arm films COMPARISON: None. FINDINGS: 2 Limited lateral C-arm films of the coccyx was performed as patient has undergone caudal block. No suspicious abnormal findings. RAD/Fluoro Guided Needle Placement IMPRESSION: C-arm films for caudal block. Electronically Signed: Zackary Jensen MD at 13:24 EDT , Service support ,
[2020-07-28] MEDS: Bupivacaine 0.25% 30 ML Vial (09:31)
[2020-07-28] MEDS: MethylPREDNISolone Acetate 80 MG/ML Vial (09:31)
[2020-07-28] MEDS: Lidocaine 1% (5 ml sdv) 5 ML Vial (09:31)
[2020-07-28] MEDS: 0.9% Normal Saline (Pres. free 10 ML Vial (09:32)
[2020-07-28 09:40] VITALS: BP 126/90; BP 137/76; PULSE 82; RESP 16; TEMP 36.3; O2SAT 94
[2020-07-28 09:46] VITALS: BP 120/73; BP 137/76; PULSE 82; RESP 16; O2SAT 96
[2020-07-28 09:50] VITALS: BP 121/80; BP 137/76; PULSE 84; RESP 18; O2SAT 99
[2020-07-28 09:56] VITALS: BP 123/69; BP 137/76; PULSE 84; RESP 16; TEMP 36.7; O2SAT 98
[2020-07-28 10:16] VITALS: BP 137/76
--- NOTE | 2020-07-28 10:20 | OP.PCM_ITS ---
Report of Operation Date of Procedure: 07/28/20 Pre-Operative Diagnosis: Lumbosacral radiculopathy, lumbosacral degenerative di sc disease, lumbosacral spinal stenosis Post-Operative Diagnosis: Lumbosacral radiculopathy, lumbosacral degenerative disc disease, lumbosacral spinal stenosis Surgery/Procedure Performed:: Caudal epidural steroid injection under fluoroscopic guidance Type of Anesthesia: MAC Estimated Blood Loss (mL): Minimal Description of Procedure: DESCRIPTION OF PROCEDURE: History and physical of today was reviewed. Risks and benefits of the procedure were explained. The patient understood and agreed to proceed. Informed consent was obtained. IV inserted per routine protocol. The patient was taken to the operating room and placed in the prone position with a pillow positioned underneath the abdomen. The lower back and tailbone area was prepped and draped in a sterile fashion using iodine x3. Under fluoroscopy guidance on a lateral view, the caudal space was identified. The skin and subcutaneous tissue was anesthetized with approximately 3 mL of 1% lidocaine using a 25-gauge regular needle. Under direct visualization with fluoroscopy, using a 22-gauge 3-1/2-inch spinal needle, the needle was advanced via the skin through the sacral hiatus. The tip of the needle was passed through the sacrococcygeal ligament and advanced to approximately S4 area. After negative aspiration of blood or CSF, a total of 3 mL of contrast was injected to confirm correct placement of the needle as well as cephalad spread. The spread was followed to approximately L5 area. After confirmation on AP as well as lateral view and repeated negative aspiration, a total of 15 mL of preservative-free 0.125% Marcaine with 80 mg of Depo-Medrol was injected easily. The needle was then removed intact. The patient experienced no sign or symptoms of intrathecal or intravascular injection. The patient experienced no paresthesia. The procedure was completed without any apparent difficulty or any complications. The patient appeared to tolerate it well. ASSESSMENT AND PLAN: This is a 54-year-old female with lumbosacral radiculopathy, lumbosacral degenerative disc disease, lumbosacral spinal stenosis status post caudal epidural steroid injection, patient will continue her current medications, patient will follow in approximately 2 weeks for reevaluation. Complications None
== END 2020-07-28 10:22 | disposition home or self-care (01) ==
LOC: SDC 08:25 → AC 08:26
PROVIDERS: PCP Family Medicine; Referring Provider Anesthesiology Pain Medicine; Visit Provider Anesthesiology Pain Medicine
PROC: 3E0S3BZ Introduction of Anesthetic Agent into Epidural Space, Percutaneous Approach (ICD-10-PCS; CPT 62282; principal; 2020-07-28 09:55)
DX: M47.27 Other spondylosis with radiculopathy, lumbosacral region (principal); M51.17 Intervertebral disc disorders with radiculopathy, lumbosacral region; M48.07 Spinal stenosis, lumbosacral region; M46.96 Unspecified inflammatory spondylopathy, lumbar region; K21.9 Gastro-esophageal reflux disease without esophagitis; F32.9 Major depressive disorder, single episode, unspecified; E03.9 Hypothyroidism, unspecified; M81.0 Age-related osteoporosis without current pathological fracture; L40.50 Arthropathic psoriasis, unspecified; G47.419 Narcolepsy without cataplexy; G25.81 Restless legs syndrome; J45.909 Unspecified asthma, uncomplicated; G43.909 Migraine, unspecified, not intractable, without status migrainosus; Z78.0 Asymptomatic menopausal state; Z86.2 Personal history of diseases of the blood and blood-forming organs and certain disorders involving the immune mechanism; Z87.19 Personal history of other diseases of the digestive system; Z79.899 Other long term (current) drug therapy
CPT/HCPCS: 62323; 64483; 77002; J7120; J3490

== ENCOUNTER → 2020-10-18 08:55 | Outpatient (CLI) | payer OTHER, SELFPAY ==
--- NOTE | 2020-10-18 08:56 | US_ITS ---
STUDY: SUPERFICIAL ULTRASOUND - LEFT FOREARM REASON FOR EXAM: Female, 55 years old. MASS OF L FOREARM BELOW ELBOW,HX PSORIASIS AND PSORIATIC ARTHRITI -- QUESTION ABSCESS TECHNIQUE: A superficial ultrasound was performed with real-time and static lewis-scale imaging. COMPARISON: None. FINDINGS: Multiple longitudinal and transverse ultrasound images the left forearm demonstrate some edematous soft tissues consistent with cellulitis but no loculated fluid collection to suggest abscess. US/Ext Non Vasc Limited/Soft Tiss IMPRESSION: Suspect cellulitis but no abscess Electronically Signed: Remy Roman MD at 10:25 EDT Tel , Service support ,
== END ==
PROVIDERS: PCP Family Medicine; Referring Provider Family Medicine; Visit Provider Family Medicine
DX: R22.32 Localized swelling, mass and lump, left upper limb (principal)
CPT/HCPCS: 76882

== ENCOUNTER 2020-10-27 08:39 | Day surgery (SDC) | payer OTHER, SELFPAY ==
--- NOTE | 2020-10-27 10:10 | RAD_ITS ---
PROCEDURE: Caudal block. DATE OF EXAMINATION: 10/27/2020. INDICATION: Female, 55 years old. Chronic back pain. FLUOROSCOPY TIME (if supplied): (11 seconds) minutes/seconds. One image was submitted. RAD/Fluor Guidance for Spine Inj IMPRESSION: Intraoperative imaging provided for caudal block. Electronically Signed: Zoran Fuentes MD at 15:56 EDT , Service support ,
[2020-10-27 10:24] VITALS: BP 124/83; PULSE 76; RESP 18; TEMP 36.9; O2SAT 99; BMI 58.1
[2020-10-27] MEDS: Lactated Ringers 1,000 ML 100 ML IV (10:38)
[2020-10-27] MEDS: Bupivacaine 0.5% PF 10 ML VIAL (11:13)
[2020-10-27] MEDS: MethylPREDNISolone Acetate 80 MG/ML Vial (11:13)
[2020-10-27] MEDS: Lidocaine 1% (5 ml sdv) 5 ML Vial (11:13)
[2020-10-27] MEDS: 0.9% Normal Saline (Pres. free 10 ML Vial (11:13)
--- NOTE | 2020-10-27 11:22 | OP.PCM_ITS ---
Report of Operation Date of Procedure: 10/27/20 Pre-Operative Diagnosis: Lumbosacral radiculopathy, lumbosacral degenerative di sc disease, lumbosacral spinal stenosis Post-Operative Diagnosis: Lumbosacral radiculopathy, lumbosacral degenerative disc disease, lumbosacral spinal stenosis Surgery/Procedure Performed:: Caudal epidural steroid injection under fluoroscopic guidance Type of Anesthesia: MAC Estimated Blood Loss (mL): Minimal Description of Procedure: DESCRIPTION OF PROCEDURE: History and physical of today was reviewed. Risks and benefits of the procedure were explained. The patient understood and agreed to proceed. Informed consent was obtained. IV inserted per routine protocol. The patient was taken to the operating room and placed in the prone position with a pillow positioned underneath the abdomen. The lower back and tailbone area was prepped and draped in a sterile fashion using iodine x3. Under fluoroscopy guidance on a lateral view, the caudal space was identified. The skin and subcutaneous tissue was anesthetized with approximately 3 mL of 1% lidocaine using a 25-gauge regular needle. Under direct visualization with fluoroscopy, using a 22-gauge 3-1/2-inch spinal needle, the needle was advanced via the skin through the sacral hiatus. The tip of the needle was passed through the sacrococcygeal ligament and advanced to approximately S4 area. After negative aspiration of blood or CSF, a total of 3 mL of contrast was injected to confirm correct placement of the needle as well as cephalad spread. The spread was followed to approximately L5 area. After confirmation on AP as well as lateral view and repeated negative aspiration, a total of 15 mL of preservative-free 0.125% Marcaine with 80 mg of Depo-Medrol was injected easily. The needle was then removed intact. The patient experienced no sign or symptoms of intrathecal or intravascular injection. The patient experienced no paresthesia. The procedure was completed without any apparent difficulty or any complications. The patient appeared to tolerate it well. ASSESSMENT AND PLAN: This is a 55-year-old female with lumbosacral radiculopathy, lumbosacral degenerative disc disease, lumbosacral spinal stenosis status post caudal epidural steroid injection, patient will continue her current medications, patient will follow in approximately 2 weeks for reevaluation. Complications None
[2020-10-27 11:25] VITALS: BP 115/77; BP 124/83; PULSE 78; RESP 16; TEMP 36.4; O2SAT 94
[2020-10-27 11:30] VITALS: BP 116/74; BP 124/83; PULSE 81; RESP 16; O2SAT 92
[2020-10-27 11:34] VITALS: BP 117/75; BP 124/83; PULSE 76; RESP 14; O2SAT 97
[2020-10-27 11:40] VITALS: BP 117/75; BP 124/83; PULSE 79; RESP 14; O2SAT 97
[2020-10-27 12:18] VITALS: BP 124/83
== END 2020-10-27 12:20 | disposition home or self-care (01) ==
LOC: SDC 08:41 → AC 09:22
PROVIDERS: PCP Family Medicine; Referring Provider Family Medicine; Visit Provider Anesthesiology Pain Medicine
PROC: 3E0S3BZ Introduction of Anesthetic Agent into Epidural Space, Percutaneous Approach (ICD-10-PCS; CPT 62282; principal; 2020-10-27 10:05)
DX: M47.27 Other spondylosis with radiculopathy, lumbosacral region (principal); M51.17 Intervertebral disc disorders with radiculopathy, lumbosacral region; M48.07 Spinal stenosis, lumbosacral region; M46.96 Unspecified inflammatory spondylopathy, lumbar region; K21.9 Gastro-esophageal reflux disease without esophagitis; M19.90 Unspecified osteoarthritis, unspecified site; F32.9 Major depressive disorder, single episode, unspecified; E03.9 Hypothyroidism, unspecified; M81.0 Age-related osteoporosis without current pathological fracture; J45.909 Unspecified asthma, uncomplicated; L40.50 Arthropathic psoriasis, unspecified; Z86.2 Personal history of diseases of the blood and blood-forming organs and certain disorders involving the immune mechanism; Z79.899 Other long term (current) drug therapy
CPT/HCPCS: 01992; 62323; 64483; 77003; J7120; J3490

== ENCOUNTER → 2020-11-12 | Outpatient (CLI) | payer OTHER, SELFPAY | END | disposition home or self-care (01) | LOC: MTLAB 14:07 → LABSPEC 15:41 | PROVIDERS: PCP Family Medicine; Referring Provider Family Medicine; Visit Provider Family Medicine | DX: R19.7 Diarrhea, unspecified (principal); D84.9 Immunodeficiency, unspecified | CPT/HCPCS: 83630; 87493; 87506 ==

== ENCOUNTER → 2020-12-16 13:27 | Outpatient (CLI) | payer OTHER, SELFPAY ==
--- NOTE | 2020-12-16 13:28 | BI_ITS ---
MAMMOGRAPHY - BILATERAL SCREENING 3-D TOMOSYNTHESIS REASON FOR EXAM: Female, 55 years old. SCREENING PERTINENT HISTORY: No significant family history. TECHNIQUE: 2-D mammograms and 3-D Tomosynthesis of the breast (s) were performed. CAD was performed. COMPARISON: 11/25/2015 FINDINGS: The breast composition is composed of scattered fibroglandular density. Scattered benign calcifications are seen. No dense spiculated masses or suspicious microcalcifications are identified. No architectural distortion is identified. There is no skin thickening or retraction. There has been no significant change since the prior study. BI/SCRN MAMM (CAD)W/JENSEN BILAT IMPRESSION: No mammographic signs of malignancy. Routine yearly mammograms recommended. ASSESSMENT CATEGORY: BIRADS Category 1: Negative. A letter regarding these results will be sent to the patient by the facility within 30 days. FOLLOW UP RECOMMENDATION: Yearly follow up mammogram recommended. (A) Approximately 10% of breast cancers are not detected by mammography. A normal mammogram should not delay biopsy of a clinically suspicious abnormality. Electronically Signed: Remy Roman MD at 11:53 EDT Tel , Service support ,
== END ==
PROVIDERS: PCP Family Medicine; Referring Provider Family Medicine; Visit Provider Family Medicine
DX: Z12.31 Encounter for screening mammogram for malignant neoplasm of breast (principal)
CPT/HCPCS: 77063; 77067

== ENCOUNTER 2020-12-17 15:30 | Outpatient (RCR) | payer OTHER, SELFPAY ==
--- NOTE | 2020-10-15 10:48 | HP.PTEVAL ---
Patient's Visit Information ELICEO REY is a 55 year old F referred to Physical Therapy by DAWN Lynn with a diagnosis of DDD, Degenerative lumbosacral intervertebral disc, lumbosacral radic. Date of Evaluation: 10/15/20 Physical Therapist: Edwin Eddy DPT - Visit Plan Frequency: 2x /Week Duration: 4 Weeks Plan: 1) Start with core/hip strengthening in aquatic setting. History of B knee pain, careful with deep squatting and lunges. 2) review posture and postural control. 3) work on educating on walking program, progressing to I aquatic HEP (Patient gym member having access to pool). - Subjective Pt. is here today for her initial evaluation with diagnosis of DDD, Degenerative lumbosacral intervertebral disc, lumbosacral radiculopathy. Pt. reports having increased low back pain for years, but has been progressively getting worse. Pt. reports increased pain with sitting, standing, walking. Decreased pain: injections, but not much else. She has had 2 injections and is getting a third (awaiting approval). Pt. does having N/T in 3rd-5th toes bilaterally. Pt. reports increased weakness in her L leg, but feels like this might be related to a possible hernia. She does have a some relief with use of a TENS unit. 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 Pt. has applied to disability, but has not heard much. She is awaiting determination on her disability. Pt. is hopeful to reduce symptoms in order to get back to all work and recreational activities with increased tolerance. MEDS: Celebrex (currently out), Aleve, Tylenol, Taltz. History: B Knee pain (OA??). - Pain low back Pain Intensity (Out of 10): 4 Pain Intensity Range: 2, 9 - Objective POSTURE: Pt. has FH posture and flexed posture. Pt. has wide CORTNEY in stance. Pt. has increased B knee valgus (L worse than R. Pt. has anterior pelvic tilt with forward chest posture. PALPATION: Pt. has increased tenderness at L4-S1 and lumbar erector spinae. Pt. has no lateral hip pain with palpation. NEURO: Pt. has normal DTR of B LES (Achilles and Patellar tendons), Pt. does reports decreased sensation of LLE from lateral knee to foot. ROM: LUMBAR SPINE: flexion min loss increase NW, extension min loss increase NW, SB L min/nil loss NE, SB R min loss increase NW, rotation min/nil loss NE. Pt. has good HS length, tight hip flexors bilaterally. Pt. has normal hip ROM bilat, except slight increase in L symptoms of hip flexion and IR. MMT: Pt. has 4/5 strength in BLEs, except B ankles 5/5 and knee ext/flex 5/5. Core strength- poor. GAIT: Pt. ambulates without AD (but reports I feel like I need a cane some times.), Pt. has increased lateral hip sway with slight lateral shift to R side with trunk correct. STAIRS: Painful to complete with step to pattern and heavy use of HRs. - Special Tests L/S Slump test left side: Negative L/S Slump test right side: Negative L/S Left Straight Leg Raise: Negative L/S Right Straight Leg Raise: Negative Lumbar Standing: Flexion - Mechanical Response: No effect Lumbar Standing: Flexion - Symptoms During Testing: Increases Lumbar Standing: Flexion - Symptoms After Testing: No worse Lumbar Standing: Extension - Mechanical Response: No effect Lumbar Standing: Extension - Symptoms During Testing: Increases Lumbar Standing: Extension - Symptoms After Testing: Worse Lumbar Standing: Right Side Glides - Mechanical Response: No effect Lumbar Standing: Right Side [place] - Symptoms During Testing: Increases Lumbar Standing: Right Side [place] - Symptoms After Testing: No worse Lumbar Standing: Left Side [place] - Mechanical Response: No effect Lumbar Standing: Left Side [place] - Symptoms During Testing: Increases Lumbar Standing: Left Side [place] - Symptoms After Testing: No worse - Balance/Special Test Scores Oswestry Low Back Score: 23 - Goals Goal 1:: LTG: Pt. to be I with aquatic HEP. Goal Time Frame: 4-6 Weeks Goal 2:: STG: Pt. to have increased lumbar ROM by 25% in all directions with decreased overall symptoms. Goal Time Frame: 2-4 Weeks Goal 3:: LTG: Pt. to demonstrate improved posture awareness as seen in ability to maintain proper posture throughout therapy session. Goal Time Frame: 4-6 Weeks Goal 4:: LTG: Pt. to have increased B hip and core strength increased to at least 4+/5 throughout in order to reduce stress to lumbar spine with all work and functional activities. Goal Time Frame: 4-6 Weeks Goal 5:: LTG: Pt. to walk 1000+ feet with out AD with 0-2/10 pain in BLEs and lumbar spine. Goal Time Frame: 4-6 Weeks Goal 6:: LTG: Pt. to complete all work related activities with 0-2/10 pain in BLEs and lumbar spine. Goal Time Frame: 4-6 Weeks - Rehabilitation Potential Physical Therapy Diagnosis: Pt. has signs and symptoms consistent with DDD, Degenerative lumbosacral intervertebral disc, lumbosacral radiculopathy. Pt. reports having some neuro signs with changes in sensation, but no changes in DTR and negative slump/SLR testing. Pt. has okay flexability, but reduced hip and core strength. Pt. would benefit from PT in the aquatic setting working on progressing general mobility, core/hip strength and body mechanics. Goal of progressing to independent program Rehabilitation Potential: Good - Anticipated Interventions Patient/Client Instruction: Educate patient on: Condition, Plan of Care, Risk Factors, Benefits of Fitness Program For the Purpose of:: To improve health and function, To foster healthy habits, To improve decision making, To facilitate caregiver knowledge, To improve self management, To prevent re-injury, To improve ability to perform tasks related to life management Therapeutic Exercise to Include: Strength training, Power training, Balance training, Coordination, Body mechanics, Postural training, Flexibilty training, In an aquatic setting, Dynamic Lumbar Stabilization, [place] Exercises For the Purpose of:: To decrease pain, To increase ROM, To improve nutrient delivery to tissue, To increase oxygenation perfusion, To improve muscle performance and motor function, To increase tolerance to activity/condition/position, To improve performance and independence with ADL's, To decrease level of supervision to perform tasks, To improve ability of physical actions for home/community/work/leisure, To decrease soft tissue restriction, To increase flexibility/ROM, To improve endurance Thank you for the opportunity to evaluate your patient. For Medicare and Medicare HMO plans, please review the plan of care and approve it. It will need to be FAXED BACK to us at [phone] for Medicare purposes. For Medicare only, by signing this I certify the plan of care. Please let me know if there are questions or concerns regarding this plan of care. Physician Signature: Date:
--- NOTE | 2020-12-17 15:58 | HP.PTDCSUM_ITS ---
It has been my pleasure to treat ELICEO REY referred by KATIE Lynn, with the diagnosis of DDD, Degenerative lumbosacral intervertebral disc, lumbosacral radic for a total of 10 visit(s). Discharge Date: 12/17/20 Please see the following information for a summary of their discharge status. Subjective: Pt. reports overall being about 20% better, I feel like my legs are a little bit stronger. She is having increased R buttock tingling and pain. She reports doing a little bit better as she has reduced hours to 6 hours. low back Pain Intensity (Out of 10): 6 RLE Pain Intensity (Out of 10): 0 LLE Pain Intensity (Out of 10): 2 % Improvement: 20 Objective/Function: ROM: Lumbar spine: flexion min loss mild increase NW, ext min/nil loss decrease NB, rotation min/nil loss NE, SB min loss mild increase NW to L side. HS length- normal length bilat. MMT: BLEs 5/5 strength, core strength- fair. GAIT: Pt. has decreased lateral hip translation with gait. Pt. still has a slight flexed posture, but has overall improved. Goal 1:: LTG: Pt. to be I with aquatic HEP. Goal Progress: Goal Met Goal 2:: STG: Pt. to have increased lumbar ROM by 25% in all directions with decreased overall symptoms. Goal Progress: Goal Met Goal 3:: LTG: Pt. to demonstrate improved posture awareness as seen in ability to maintain proper posture throughout therapy session. Goal Progress: Progressing Goal 4:: LTG: Pt. to have increased B hip and core strength increased to at least 4+/5 throughout in order to reduce stress to lumbar spine with all work and functional activities. Goal Progress: Progressing Goal 5:: LTG: Pt. to walk 1000+ feet with out AD with 0-2/10 pain in BLEs and lumbar spine. Goal Progress: Progressing Goal 6:: LTG: Pt. to complete all work related activities with 0-2/10 pain in BLEs and lumbar spine. Goal Progress: Progressing Plan: Pt. to be DC to HEP at this point in time. Discharge Comments: Pt. did well with aquatic therapy as she improved with her ROM and strength. Pt. is still having symptoms, but is planning to continue with an aquatic program, planning to come 2-3x per week. I will DC her back to physician at this point in time. She is to follow up with physician next week to see about further interventions to add to her exercises. If there are questions or concerns regarding this patient's physical therapy, please feel free to call me at [phone]. Thank you for the referral of this patient. Sincerely, Edwin Eddy, DPT Balance/Gait/Functional tests - Balance/Special Test Scores Oswestry Low Back Score: 16
== END 2020-12-17 19:00 | disposition home or self-care (01) ==
LOC: PT 15:30
PROVIDERS: PCP Family Medicine; Referring Provider Nurse Practitioner Family; Visit Provider Nurse Practitioner Family
DX: M51.37 Other intervertebral disc degeneration, lumbosacral region (principal); M47.817 Spondylosis without myelopathy or radiculopathy, lumbosacral region; M54.17 Radiculopathy, lumbosacral region; M48.07 Spinal stenosis, lumbosacral region; M46.96 Unspecified inflammatory spondylopathy, lumbar region
CPT/HCPCS: 97113; 97161; 97164

== ENCOUNTER → 2020-12-19 05:55 | Outpatient (CLI) | payer OTHER, SELFPAY ==
--- NOTE | 2020-12-19 06:17 | RAD_ITS ---
STUDY: X-RAY - RIGHT ANKLE REASON FOR EXAM: Female, 55 years old. Psoriatic arthritis. Pain. TECHNIQUE: 3 view(s) of the ankle. COMPARISON: None. FINDINGS: Normal visualized distal tibia and fibula. Normal medial and lateral malleoli. Mild arthrosis of the tibiotalar and subtalar joints. Normal visualized talus and calcaneus. Os trigonum, a normal variant. Mild arthrosis of the midfoot. The soft tissue structures are unremarkable. RAD/Ankle min 3 Views IMPRESSION: Osteoarthritic changes. No acute abnormality or erosive changes. Electronically Signed: Henry Yen MD at 10:13 EDT , Service support ,
--- NOTE | 2020-12-19 06:18 | RAD_ITS ---
STUDY: X-RAY - LEFT HAND REASON FOR EXAM: Female, 55 years old. Wrist pain. TECHNIQUE: 3 view(s) of the hand. COMPARISON: None. FINDINGS: Mild arthrosis of the radiocarpal and radioulnar articulations. Mild arthrosis of the radial carpal row. Moderate arthrosis of the first CMC joint. Moderate arthrosis of the MCP and IP joints. The soft tissue structures are unremarkable. RAD/Hand Min 3 Views IMPRESSION: Osteopenia with diffuse osteoarthrosis. No acute finding. Electronically Signed: Henry Yen MD at 9:42 EDT , Service support ,
--- NOTE | 2020-12-19 06:18 | RAD_ITS ---
STUDY: X-RAY - RIGHT FOOT CLINICAL: Female, 55 years old. Pain. Evaluate for osteoarthrosis. TECHNIQUE: 3 view(s) of the foot. COMPARISON: None. FINDINGS: Mild arthrosis of the tibiotalar joint. Os trigonum, a normal variant. Normal talus, calcaneus, and tarsal bones. Mild arthrosis of the subtalar joint, most marked at the tarsometatarsal articulations. Mild arthrosis of the MTP and IP joints. The soft tissue structures are unremarkable. RAD/Foot min 3 Views IMPRESSION: Osteoarthritic changes, most marked at the tarsometatarsal articulations. No acute abnormality. Electronically Signed: Henry Yen MD at 10:24 EDT , Service support ,
--- NOTE | 2020-12-19 06:18 | RAD_ITS ---
STUDY: X-RAY - RIGHT HAND REASON FOR EXAM: Female, 55 years old. Wrist pain. TECHNIQUE: 3 view(s) of the hand. COMPARISON: None. FINDINGS: Osteopenia. Mild arthrosis of the radiocarpal articulation. Mild arthrosis of the radiocarpal row. Mild arthrosis of the first CMC joint. Mild arthrosis of the MCP and IP joints. The soft tissue structures are unremarkable. RAD/Hand Min 3 Views IMPRESSION: Osteopenia with diffuse osteoarthrosis. No acute abnormality, erosive changes, periostitis or chondrocalcinosis. Electronically Signed: Henry Yen MD at 10:16 EDT , Service support ,
--- NOTE | 2020-12-19 06:18 | RAD_ITS ---
STUDY: X-RAY - LEFT FOOT CLINICAL: Female, 55 years old. Pain. Evaluate for osteoarthrosis. TECHNIQUE: 3 view(s) of the foot. COMPARISON: None. FINDINGS: Mild arthrosis of the tibiotalar joint. Os trigonum, a normal variant. Small inferior calcaneal spur. Mild arthrosis of the subtalar joint, most marked at the tarsometatarsal articulations. Mild arthrosis of the MTP and IP joints. The soft tissue structures are unremarkable. RAD/Foot min 3 Views IMPRESSION: Osteoarthritic changes, most marked at the tarsometatarsal articulations. Inferior calcaneal spur. No acute abnormality. Electronically Signed: Henry Yen MD at 10:25 EDT , Service support ,
--- NOTE | 2020-12-19 06:19 | RAD_ITS ---
STUDY: X-RAY - RIGHT KNEE REASON FOR EXAM: Female, 55 years old. Knee pain. TECHNIQUE: 4 view(s) of the knee. COMPARISON: None. FINDINGS: Osteopenia. Normal visualized distal femur. Normal visualized proximal tibia and fibula. Normal proximal tibiofibular articulation. Mild medial compartmental arthrosis. Mild lateral compartmental arthrosis with small osteophytes. Lateral tilt and subluxation of the patella with moderate arthrosis of the patellofemoral compartment. The soft tissue structures are unremarkable. RAD/Knee 4 or More Views IMPRESSION: Osteopenia with tricompartmental arthrosis, most marked in the patellofemoral compartment. No acute finding. Electronically Signed: Henry Yen MD at 10:21 EDT , Service support ,
--- NOTE | 2020-12-19 06:19 | RAD_ITS ---
STUDY: X-RAY - LEFT KNEE REASON FOR EXAM: Female, 55 years old. Knee pain. TECHNIQUE: 4 view(s) of the knee. COMPARISON: None. FINDINGS: Osteopenia. Normal visualized distal femur. Normal visualized proximal tibia and fibula. Normal proximal tibiofibular articulation. Moderate medial compartmental arthrosis with small osteophytes. Mild lateral compartmental arthrosis with small osteophytes. Lateral tilt and subluxation of the patella with moderate arthrosis of the patellofemoral compartment. The soft tissue structures are unremarkable. RAD/Knee 4 or More Views IMPRESSION: Osteopenia with tricompartmental arthrosis as described. No acute finding. Electronically Signed: Henry Yen MD at 10:22 EDT , Service support ,
--- NOTE | 2020-12-19 06:40 | RAD_ITS ---
STUDY: X-RAY - PELVIS REASON FOR EXAM: Female, 55 years old. Psoriatic arthritis. Pain. TECHNIQUE: One view of the pelvis was obtained on 2 images. COMPARISON: None. FINDINGS: There is a non-specific bowel gas pattern. Normal visualized soft tissue structures. Normal bilateral iliac wings, sacroiliac joints and visualized sacrum. Normal visualized bilateral superior and inferior pubic rami. Normal pubic symphysis. Normal ischial tuberosities. Mild medial arthrosis of both hips. RAD/Pelvis 1 or 2 Views IMPRESSION: Mild medial arthrosis of both hips. No other abnormality present. Electronically Signed: Henry Yen MD at 10:11 EDT , Service support ,
[2020-12-19 07:47] LABS: Color, Urine Yellow (Yellow); Glucose, Dipstick Normal (Normal); Ketone-Dipstick Negative (Negative); Leukocyte Esterase-Dipstick Negative /ul (Negative); Nitrite-Dipstick Negative (Negative); Occult Blood-Urine 25 /ul (Negative); Protein-Dipstick Negative (Negative); Specific Gravity, Urine 1.025 (1.002-1.030); Urine Bilirubin Dipstick Negative (Negative); Urine Clarity Sl. Cloudy (Clear); Urine Urobilinogen Normal (Normal)
[2020-12-19 07:54] LABS: Cholesterol 229 mg/dL (200); High Density Lipoprotein 42 mg/dL; Triglycerides 294 mg/dL; Very Low Density Lipoprotein 59 mg/dL (5-40)
== END ==
PROVIDERS: PCP Family Medicine
DX: M25.552 Pain in left hip (principal); M25.571 Pain in right ankle and joints of right foot; M79.671 Pain in right foot; M79.672 Pain in left foot; M25.531 Pain in right wrist; M25.561 Pain in right knee; M25.562 Pain in left knee; L40.50 Arthropathic psoriasis, unspecified; M89.49 Other hypertrophic osteoarthropathy, multiple sites; M77.9 Enthesopathy, unspecified; E78.5 Hyperlipidemia, unspecified; R73.03 Prediabetes; Z79.1 Long term (current) use of non-steroidal anti-inflammatories (NSAID)
CPT/HCPCS: 36415; 72170; 73130; 73564; 73610; 73630; 80061; 81002

== ENCOUNTER → 2020-12-23 15:04 | Outpatient (CLI) | payer OTHER, SELFPAY ==
[2020-12-23 15:59] LABS: Absolute Lymphocyte Count 1.72 X10^3/uL (0.83-4.51); Absolute Neutrophil Count 4.9 X10^3/uL (2.0-7.7); Basophil# 0.06 X10^3/uL; Basophil% 0.8 % (0-1); Eosinophil# 0.52 X10^3/uL; Eosinophils% 6.7 % (0-5); Hematocrit 40.8 % (37-47); Hemoglobin 13.3 g/dL (12.0-15.0); Lymphocyte # 1.72 X10^3/ul (0.83-4.51); Lymphocyte % 22.1 % (19-41); Mean Corp Hgb Conc 32.6 g/dL (32-36); Mean Corpuscular Volume 98.1 fL (81-99); Mean Platelet Vol. 8.9 fl (6.2-12.0); Monocyte# 0.52 X10^3/uL; Monocyte% 6.7 % (0-10); NRBC Flagged by Analyzer 0 % (0-5); Neutrophil # 4.92 X10^3/uL (2.7-7.7); Neutrophil % 63.3 % (47-70); Platelet Count 312 K/mm3 (150-450); RBC Distribution Width CV 12.9 % (11.6-14.6); RBC Distribution Width SD 46.5 fl (35.1-43.9); Red Blood Count 4.16 M/mm3 (4.2-5.4); White Blood Count 7.8 K/mm3 (4.4-11.0)
[2020-12-23 16:42] LABS: PTHIN 81.2 pg/mL (18.4-80.1)
[2020-12-23 17:03] LABS: ALB/GLOB Ratio 0.9 RATIO (0.9-2.4); AST(SGOT) 22 U/L (15-37); Alanine Aminotransfer ALT/SGPT 27 U/L (13-56); Albumin, Serum 3.6 g/dL (3.2-5.0); Alkaline Phosphatase 90 U/L (45-117); Anion Gap 9 (5-15); BUN 18 mg/dL (7-18); CPK Total, Creatine Kinase 76 U/L (26-192); CRP < 2.90 mg/L (0.0-3.0); Calcium,Total 9.2 mg/dL (8.5-10.1); Chloride 106 mmol/L (98-107); Creatinine, Serum 0.95 mg/dL (0.55-1.02); EST Glomerular Filtration Rate 65 mL/min (>60); Est Glom Filt Rate - Afr Amer 79 mL/min (>60); Globulin 3.9 g/dL (2.2-4.2); Glucose 104 mg/dL (74-106); Potassium 3.7 mmol/L (3.5-5.1); Protein, Total 7.5 g/dL (6.4-8.2); Sodium Level 141 mmol/L (136-145)
[2020-12-26 01:06] LABS: Dilute Russell Viper Venom 36.9 sec (0.0-47.0); Immunoglobulin A 209 mg/dL (87-352); Immunoglobulin G 991 mg/dL (586-1602); Immunoglobulin M 48 mg/dL (26-217); Thrombin Time 18.6 sec (0.0-23.0)
[2020-12-26 09:13] LABS: Anti-Cardiolipin Ab, IgA, Qn < 9 APL U/mL (0-11); Anti-Cardiolipin Ab, IgG, Qn < 9 GPL U/mL (0-14); Anti-Cardiolipin Ab, IgM, Qn < 9 MPL U/mL (0-12); Dilute Prothrombin Time (dPT) 35.5 sec (0.0-55.0); Interpretation Comment: (.); dPT Confirm Ratio 1.03 Ratio (0.00-1.40)
[2020-12-26 12:08] LABS: Anti-Centromere B Ab <0.2 AI (0.0-0.9); Anti-Scleroderma-70 AB <0.2 AI (0.0-0.9); RNP Ab 0.2 AI (0.0-0.9); Smith Ab <0.2 AI (0.0-0.9)
[2020-12-26 13:24] LABS: ANTINUCLEAR ANTIBODIES DIRECT Negative (Negative); Anti-Histone Abs 0.8 Units (0.0-0.9); Anti-dsDNA Ab <1 IU/mL (0-9)
== END ==
PROVIDERS: PCP Family Medicine
DX: M81.0 Age-related osteoporosis without current pathological fracture (principal); Z51.81 Encounter for therapeutic drug level monitoring; Z79.83 Long term (current) use of bisphosphonates; R76.8 Other specified abnormal immunological findings in serum; L40.50 Arthropathic psoriasis, unspecified; R53.82 Chronic fatigue, unspecified; Z79.899 Other long term (current) drug therapy; Z79.1 Long term (current) use of non-steroidal anti-inflammatories (NSAID); R73.03 Prediabetes
CPT/HCPCS: 36415; 80053; 81002; 82306; 82550; 82784; 83970; 85025; 86038; 86140; 86147; 86225; 86235; 86334

== ENCOUNTER → 2021-01-01 14:12 | Outpatient (CLI) | payer OTHER, SELFPAY ==
--- NOTE | 2021-01-01 14:40 | CT_ITS ---
STUDY: CT ABDOMEN AND PELVIS WITH CONTRAST REASON FOR EXAM: Female, 55 years old. LLQ PAIN RADIATION DOSAGE (If Supplied By Facility): CTDIvol = ( 17.08 ) mGy, DLP = ( 1343.02 ) mGycm TECHNIQUE: Transaxial images were obtained from the dome of the diaphragm to the symphysis pubis without oral contrast. Oral and amp; IV Readi-CAT and amp; 100mL Isovue-300 was administered. Sagittal and coronal images were reconstructed. Individualized dose optimization techniques were used for this CT. COMPARISON: None. FINDINGS: Lung bases clear. Small hiatal hernia. Surgical clips at the GE junction. Marked diffuse hepatic steatosis. Unremarkable spleen, pancreas, adrenals, and bilateral kidneys. Status post cholecystectomy. No CT evidence of acute appendicitis. Bowel loops nonobstructed. No colonic diverticulosis. No free air or free fluid. No adenopathy. Minimal vascular calcification with no abdominal aortic aneurysm. Sections through the pelvis demonstrate evidence of prior hysterectomy. No adnexal mass. Urinary bladder incompletely distended multilevel thoracolumbar spondylosis. Old compression deformity of the superior endplate of L1. Minimal anterior slippage of L4 on L5, most likely degenerative. Moderate osteoarthritis of the bilateral hip joints. Diffuse osteopenia. CT/Abdomen/Pelvis WITH Contrast IMPRESSION: Marked diffuse hepatic steatosis. No acute finding in the abdomen and pelvis. Status post cholecystectomy and hysterectomy. Electronically Signed: Harrison Grover MD at 20:09 EDT Tel , Service support ,
== END ==
PROVIDERS: PCP Family Medicine; Referring Provider Family Medicine; Visit Provider Family Medicine
DX: R10.32 Left lower quadrant pain (principal); R19.7 Diarrhea, unspecified
CPT/HCPCS: 74177; Q9967

== ENCOUNTER → 2021-01-06 13:54 | Outpatient (CLI) | payer OTHER, SELFPAY ==
--- NOTE | 2021-01-06 13:56 | VDUE_ITS ---
Reason For Study: Swelling Right Proximal Right jugular vein is spontaneous, widely patent, phasic, with no intraluminal echogenicity noted. Right subclavian vein is spontaneous, widely patent, phasic, with no intraluminal echogenicity noted. Right Lower Arm Right radial vein is compressible. Right ulnar vein is compressible. Right Arm Right axillary vein is spontaneous, patent, phasic, competent, compressible and demonstrates augmentation. Right brachial vein is compressible. Right cephalic vein is compressible. Right basilic vein is compressible. Patient Safety Preliminary report faxed to [facility]. VL/Venous Duplex US, Unilateral Interpretation Summary Deep veins of the right upper extremity are patent and compressible segmentally . There is no evidence of deep vein thrombosis. The superficial veins of the right upper extr emity, the basilic and cephalic veins, are patent and compressible. There is no evidence of right upper extremity superficial thrombophlebitis involving the veins imaged. Ordering Physician: Cheko Jensen Referring Physician: Maddie Mccray Performed By: Nica Enriquez RVT ?
== END ==
PROVIDERS: PCP Family Medicine; Referring Provider Family Medicine; Visit Provider Family Medicine
DX: M79.601 Pain in right arm (principal)
CPT/HCPCS: 93971

== ENCOUNTER 2021-01-12 09:06 | Day surgery (SDC) | payer OTHER, SELFPAY ==
[2021-01-12] VITALS (7 sets, daily range): BP systolic 103–132; BP diastolic 58–83; PULSE 62–75; RESP 17–18; TEMP 36.2–36.6; O2SAT 96–100; BMI 55.7
[2021-01-12] MEDS: Lactated Ringers 1,000 ML 100 ML IV (10:01)
--- NOTE | 2021-01-12 10:40 | RAD_ITS ---
STUDY: X-RAY - LUMBAR SPINE REASON FOR EXAM: Female, 55 years old. MEDIAL BRANCH NERVE BLOCK, L4-S1, BILAT TECHNIQUE: 4 view(s) of the lumbar spine were obtained. COMPARISON: None FINDINGS: Intraoperative imaging provided for medial branch nerve block at the L4 S1 level bilaterally. RAD/L/S Spine Min 4 Views IMPRESSION: Intraoperative imaging provided for medial bilateral L4-S1 medial branch nerve block. Electronically Signed: Zoran Fuentes MD at 15:38 EDT , Service support ,
[2021-01-12] MEDS: Lidocaine 1% (30 ml sdv) 30 ML Vial (10:57)
[2021-01-12] MEDS: MethylPREDNISolone Acetate 40 MG/ML Vial IM (10:57)
[2021-01-12] MEDS: Bupivacaine 0.25% 30 ML Vial (10:57)
--- NOTE | 2021-01-12 11:08 | OP.PCM_ITS ---
Report of Operation Date of Procedure: 01/12/21 Pre-Operative Diagnosis: Lumbosacral spondylosis, lumbosacral degenerative disc disease, lumbar facet arthropathy Post-Operative Diagnosis: Lumbosacral spondylosis, lumbosacral degenerative disc disease, lumbar facet arthropathy Description of Surgical Findings:: PROCEDURE PERFORMED: Bilateral lumbar medial branch block at, L4, L5, and S1. ANESTHESIA: MAC. BLOOD LOSS: Minimal. COMPLICATIONS: None. DESCRIPTION OF PROCEDURE: History and physical of today was reviewed. Risks and benefits of the procedure were explained. The patient understood and agreed to proceed. Informed consent was obtained. IV inserted per routine protocol. The patient was taken to the operating room and placed in the prone position with a pillow positioned underneath the abdomen. The lower back area was prepped and draped in a sterile fashion using iodine x3. Under fluoroscopy guidance on AP view, the L4 through S1 vertebral bodies were visualized. The skin and subcutaneous tissue was anesthetized with approximately 5 mL of 1% lidocaine using a 25-gauge regular needle. Under direct visualization with fluoroscopy, at approximately 25-degree angle, starting on the left L4, ending on the right L4, passing through the L5 and S1 bilaterally, using a 22-gauge 5- inch spinal needle, the needle was advanced via the skin. The tip of the needle was maneuvered and directed towards the superior medial gutter of the transverse process at the vicinity of the medial branch. Once tip of the needle was in contact with the bone, the needle was pulled approximately 2 mm off the bone. After negative aspiration for blood or CSF and confirmation on AP, oblique as well as lateral view, a total of 12 mL of preservative-free 0.25% Marcaine with 80 mg of Depo-Medrol was injected in divided doses between those six levels. The needles were then removed intact. The patient experienced no sign or symptoms of intrathecal or intravascular injection. The patient experienced no paresthesia. The procedure was completed without any apparent difficulty or any complications. The patient appeared to tolerate it well. ASSESSMENT AND PLAN: This is a 55-year-old female with lumbosacral spondylosis, lumbosacral degenerative disc disease, lumbar facet arthropathy status post bilateral lumbar medial branch block at L4-S1 patient will continue her current medications, patient will follow in approximately 2 weeks for reevaluation.
== END 2021-01-12 11:57 | disposition home or self-care (01) ==
LOC: SDC 09:07 → AC 09:08
PROVIDERS: PCP Family Medicine; Referring Provider Anesthesiology Pain Medicine; Visit Provider Anesthesiology Pain Medicine
PROC: 3E0T3BZ Introduction of Anesthetic Agent into Peripheral Nerves and Plexi, Percutaneous Approach (ICD-10-PCS; CPT 64493; principal; 2021-01-12 10:35)
DX: M47.817 Spondylosis without myelopathy or radiculopathy, lumbosacral region (principal); M51.17 Intervertebral disc disorders with radiculopathy, lumbosacral region; M46.96 Unspecified inflammatory spondylopathy, lumbar region; M48.07 Spinal stenosis, lumbosacral region; D64.9 Anemia, unspecified; K21.9 Gastro-esophageal reflux disease without esophagitis; F32.A Depression, unspecified; E03.9 Hypothyroidism, unspecified; M81.0 Age-related osteoporosis without current pathological fracture; J45.909 Unspecified asthma, uncomplicated; M19.90 Unspecified osteoarthritis, unspecified site; L40.50 Arthropathic psoriasis, unspecified; Z79.899 Other long term (current) drug therapy
CPT/HCPCS: 01992; 64493; 64494; 64495; 64483; 72110; J7120

== ENCOUNTER → 2021-01-13 14:27 | Outpatient (CLI) | payer OTHER, SELFPAY ==
--- NOTE | 2021-01-13 14:45 | BD_ITS ---
STUDY: DUAL ENERGY X-RAY ABSORPTIOMETRY / DXA REASON FOR EXAM: Female, 55 years old. Z780. The patient is postmenopausal. TECHNIQUE: Bone Mineral Density (BMD) measurements of lumbar spine and bilateral hips were obtained. COMPARISON: Comparison is made with prior study 10/25/2017. FINDINGS: Lumbar Spine (L1-L4): g/cm2 (0.779) / T-score (-2.2) / Z-score (-1.9) Findings are suggestive of osteopenia with a high fracture risk. Left Femur Total: g/cm2 (0.712) / T-score (-1.9) / Z-score (-1.2) Left Femoral Neck: g/cm2 (0.501) / T-score (-3.1) / Z-score (-2.1) Right Femur Total: g/cm2 (0.724) / T-score (-1.8) / Z-score (-1.1) Right Femoral Neck: g/cm2 (0.521) / T-score (-3.0) / Z-score (-1.9) The T-Scores on the most recent prior examination were: Lumbar Spine (L1-L4): There has been improvement of bone density since the previous examination. Left Femur Total: which represents an improvement of 5.7%. Right Femur Total: which represents an improvement of 10.5%. BD/Dexa Bone Density Study IMPRESSION: The patient is considered osteoporotic as outlined below according to World Manoj Organization (WHO) criteria with a high fracture risk. There has been improvement of bone density since the previous examination. Reference Information: The T-score is the number of standard deviations above or below the standard which is normal for young adults at their peak bone mineral density. The World Health Organization (WHO) interprets the T-scores as follows: Above -1 Normal bone density Between -1 and -2.5 Osteopenia Equal to / or below -2.5 Osteoporosis As a practical clinical guideline, osteopenia may be graded as follows: Mild -1 through -1.5 Moderate -1.6 through -2.0 Severe -2.1 through -2.4 The Z-score is the number of standard deviations above or below age-matched controls. A Z-score of less than -1.5 would be considered abnormal. References: 1. NIH Osteoporosis and Related Bone Diseases www osteo.org 2. International Society for Clinical Densitometry www iscd.org 3. National Osteoporosis Foundation www nof.org Electronically Signed: Zoran Fuentes MD at 13:17 EDT , Service support ,
== END ==
PROVIDERS: PCP Family Medicine; Referring Provider Family Medicine; Visit Provider Family Medicine
DX: M81.0 Age-related osteoporosis without current pathological fracture (principal); Z78.0 Asymptomatic menopausal state
CPT/HCPCS: 77080

== ENCOUNTER → 2021-01-22 09:21 | Outpatient (CLI) | payer OTHER, SELFPAY ==
--- NOTE | 2021-01-22 09:22 | RAD_ITS ---
STUDY: X-RAY - LEFT ANKLE REASON FOR EXAM: Female, 55 years old. Ankle pain. TECHNIQUE: 3 view(s) of the ankle. COMPARISON: None. FINDINGS: Osteopenia. Inferior calcaneal spur. Moderate arthrosis of the tibiotalar and subtalar joints. Moderate arthrosis of the midfoot. Diffuse soft tissue swelling. RAD/Ankle min 3 Views IMPRESSION: Osteopenia with osteoarthritic changes as described. Diffuse soft tissue swelling. No acute abnormality. Electronically Signed: Henry eYn MD at 11:47 EST , Service support ,
--- NOTE | 2021-01-22 09:22 | RAD_ITS ---
STUDY: X-RAY - LEFT FOOT CLINICAL: Female, 55 years old. Foot pain. TECHNIQUE: 3 view(s) of the foot. COMPARISON: None. FINDINGS: Osteopenia. Inferior calcaneal spur. Mild arthrosis of the tibiotalar joint and subtalar joint. Mild arthrosis of the midfoot. Mild arthrosis of the MTP and IP joints. The soft tissue structures are unremarkable. RAD/Foot min 3 Views IMPRESSION: Osteopenia with calcaneal spur and osteoarthritic changes. No acute abnormality, chondrocalcinosis, erosive changes or periostitis. Electronically Signed: Henry Yen MD at 11:46 EST , Service support ,
== END ==
PROVIDERS: PCP Family Medicine; Referring Provider Family Medicine; Visit Provider Family Medicine
DX: M25.572 Pain in left ankle and joints of left foot (principal); M79.672 Pain in left foot
CPT/HCPCS: 73610; 73630

== ENCOUNTER 2021-01-26 07:55 | Day surgery (SDC) | payer OTHER, SELFPAY ==
[2021-01-26] VITALS (8 sets, daily range): BP systolic 100–139; BP diastolic 61–80; PULSE 16–74; RESP 16–18; TEMP 36.3–36.6; O2SAT 92–98; BMI 56.3
[2021-01-26] MEDS: Lactated Ringers 1,000 ML 100 ML IV (08:53)
--- NOTE | 2021-01-26 09:46 | RAD_ITS ---
STUDY: X-RAY - SACROILIAC JOINTS REASON FOR EXAM: Female, 55 years old. LT SI JOINT INJECTION TECHNIQUE: 1 view(s) of the sacroiliac joints were obtained. COMPARISON: None. FINDINGS: Intraoperative images provided for left SI joint injection. RAD/Fluoro Guided Needle Placement IMPRESSION: Intraoperative imaging provided for left SI joint injection. Electronically Signed: Zoran Fuentes MD at 15:06 EST , Service support ,
[2021-01-26] MEDS: Bupivacaine 0.25% 30 ML Vial (09:47)
[2021-01-26] MEDS: Lidocaine 1% (5 ml sdv) 5 ML Vial (09:47)
[2021-01-26] MEDS: MethylPREDNISolone Acetate 40 MG/ML Vial IM (09:47)
--- NOTE | 2021-01-26 13:00 | PCM.OPRPT ---
Report of Operation Date of Procedure: 01/26/21 Description of Surgical Findings:: PREOPERATIVE DIAGNOSES: 1. Sacroiliitis. 2. Sacroiliac joint dysfunction. POSTOPERATIVE DIAGNOSES: 1. Sacroiliitis. 2. Sacroiliac joint dysfunction. PROCEDURE PERFORMED: Left-sided sacroiliac joint steroid injection under fluoroscopy guidance. ANESTHESIA: MAC. BLOOD LOSS: Minimal. COMPLICATIONS: None. DESCRIPTION OF PROCEDURE: History and physical of today was reviewed. Risks and benefits of the procedure were explained. The patient understood and agreed to the procedure. Informed consent was obtained. IV inserted per routine protocol. The patient was taken to the operating room and placed in the prone position with a pillow positioned underneath the abdomen. The left lower back and buttock area was prepped and draped in a sterile fashion using iodine x3. Under fluoroscopy guidance on an AP view, the left SI joint was visualized. The skin and subcutaneous tissue was anesthetized with approximately 3 mL of 1% lidocaine using a 25-gauge regular needle. Under direct visualization with fluoroscopy at approximately 15-degree angle, using a 22-gauge 3-1/2-inch spinal needle, the needle was advanced via the skin. The tip of the needle was maneuvered and directed towards the inferior one-third of the posterior SI joint. Once the tip of the needle was at the vicinity of the joint, after negative aspiration for blood or CSF, a total of 1 mL of contrast was injected to confirm correct placement of the needle as well as cephalocaudal spread. Confirmation was obtained on AP as well as oblique view. After repeated negative aspiration and confirmation, a total of 4 mL of preservative-free 0.25% Marcaine with 40 mg of Depo-Medrol was injected in and around the SI joint. The needle was then removed intact. The patient experienced no sign or symptoms of intrathecal or intravascular injection. The patient experienced no paresthesia. The procedure was completed without any apparent difficulty or any complications. The patient appeared to tolerate it well. ASSESSMENT AND PLAN: This is a 55-year-old female with sacroiliitis, SI joint dysfunction, status post left-sided sacroiliac joint steroid injection under fluoroscopic guidance, patient will continue her current medications, patient will follow approximately 2 weeks for reevaluation.
== END 2021-01-26 10:39 | disposition home or self-care (01) ==
LOC: SDC 07:55 → AC 07:59
PROVIDERS: PCP Family Medicine; Referring Provider Anesthesiology Pain Medicine; Visit Provider Anesthesiology Pain Medicine
PROC: 3E0U3GC Introduction of Other Therapeutic Substance into Joints, Percutaneous Approach (ICD-10-PCS; CPT 27096; principal; 2021-01-26 09:30)
DX: M46.1 Sacroiliitis, not elsewhere classified (principal); M53.3 Sacrococcygeal disorders, not elsewhere classified; M51.17 Intervertebral disc disorders with radiculopathy, lumbosacral region; M47.27 Other spondylosis with radiculopathy, lumbosacral region; M48.07 Spinal stenosis, lumbosacral region; M46.96 Unspecified inflammatory spondylopathy, lumbar region; I34.1 Nonrheumatic mitral (valve) prolapse; K21.9 Gastro-esophageal reflux disease without esophagitis; F32.A Depression, unspecified; E03.9 Hypothyroidism, unspecified; M81.0 Age-related osteoporosis without current pathological fracture; L40.50 Arthropathic psoriasis, unspecified; J45.909 Unspecified asthma, uncomplicated; G25.81 Restless legs syndrome; G43.909 Migraine, unspecified, not intractable, without status migrainosus; G47.419 Narcolepsy without cataplexy; Z78.0 Asymptomatic menopausal state; Z87.19 Personal history of other diseases of the digestive system; Z79.899 Other long term (current) drug therapy
CPT/HCPCS: 01160; 27096; 76000; 77002; J7120

== ENCOUNTER → 2021-02-10 16:05 | Outpatient (CLI) | payer OTHER, SELFPAY ==
[2021-02-10 17:48] LABS: Absolute Lymphocyte Count 1.74 X10^3/uL (0.83-4.51); Absolute Neutrophil Count 4.7 X10^3/uL (2.0-7.7); Basophil# 0.07 X10^3/uL; Basophil% 0.9 % (0-1); Eosinophils% 5.3 % (0-5); Hematocrit 38.9 % (37-47); Hemoglobin 12.9 g/dL (12.0-15.0); Lymphocyte # 1.74 X10^3/ul (0.83-4.51); Lymphocyte % 22.9 % (19-41); Mean Corp Hgb Conc 33.2 g/dL (32-36); Mean Corpuscular Hgb 32.6 pg (27.0-32.0); Mean Corpuscular Volume 98.2 fL (81-99); Mean Platelet Vol. 9.2 fl (6.2-12.0); Monocyte# 0.62 X10^3/uL; Monocyte% 8.2 % (0-10); NRBC Flagged by Analyzer 0 % (0-5); Neutrophil # 4.73 X10^3/uL (2.7-7.7); Neutrophil % 62.3 % (47-70); Platelet Count 287 K/mm3 (150-450); RBC Distribution Width CV 12.8 % (11.6-14.6); RBC Distribution Width SD 45.9 fl (35.1-43.9); Red Blood Count 3.96 M/mm3 (4.2-5.4); White Blood Count 7.6 K/mm3 (4.4-11.0)
[2021-02-10 17:56] LABS: Erythrocyte Sedimentation Rate 20 mm/hr (0-30)
[2021-02-10 18:18] LABS: ALB/GLOB Ratio 0.8 RATIO (0.9-2.4); AST(SGOT) 22 U/L (15-37); Alanine Aminotransfer ALT/SGPT 35 U/L (13-56); Albumin, Serum 3.2 g/dL (3.2-5.0); Alkaline Phosphatase 105 U/L (45-117); Anion Gap 7 (5-15); BUN 17 mg/dL (7-18); BUN/Creat Ratio 22.1 RATIO (10-20); CRP < 2.90 mg/L (0.0-3.0); Calcium,Total 8.9 mg/dL (8.5-10.1); Chloride 107 mmol/L (98-107); Creatinine, Serum 0.77 mg/dL (0.55-1.02); EST Glomerular Filtration Rate 83 mL/min (>60); Est Glom Filt Rate - Afr Amer 100 mL/min (>60); Ferritin 155 ng/mL (8-252); GGTP 99 U/L (5-55); Globulin 3.8 g/dL (2.2-4.2); Glucose 124 mg/dL (74-106); Potassium 3.5 mmol/L (3.5-5.1); Sodium Level 140 mmol/L (136-145)
[2021-02-10 18:39] LABS: Color, Urine Yellow (Yellow); Glucose, Dipstick Normal (Normal); Ketone-Dipstick 5 mg/dl (Negative); Leukocyte Esterase-Dipstick Negative /ul (Negative); Nitrite-Dipstick Negative (Negative); Occult Blood-Urine Negative /ul (Negative); Protein-Dipstick Negative (Negative); Urine Bilirubin Dipstick Negative (Negative); Urine Clarity Cloudy (Clear); Urine Urobilinogen Normal (Normal)
== END ==
PROVIDERS: PCP Family Medicine; Referring Provider Internal Medicine Pulmonary Disease; Visit Provider Internal Medicine Pulmonary Disease
DX: R31.21 Asymptomatic microscopic hematuria (principal); R73.03 Prediabetes; Z79.1 Long term (current) use of non-steroidal anti-inflammatories (NSAID); L40.50 Arthropathic psoriasis, unspecified; G89.29 Other chronic pain; L40.9 Psoriasis, unspecified; E34.9 Endocrine disorder, unspecified; Z79.899 Other long term (current) drug therapy; R53.82 Chronic fatigue, unspecified; M25.50 Pain in unspecified joint
CPT/HCPCS: 36415; 80053; 81002; 82728; 82977; 85025; 85652; 86140

== ENCOUNTER 2021-02-13 11:25 | Emergency (ER) | payer OTHER, SELFPAY ==
[2021-02-13 11:26] VITALS: BP 144/94; PULSE 73; RESP 18; TEMP 36; O2SAT 96; BMI 57.4
--- NOTE | 2021-02-13 12:33 | CT_ITS ---
STUDY: CT LUMBAR SPINE WITHOUT CONTRAST REASON FOR EXAM: Female, 55 years old. Pain after injection RADIATION DOSAGE (If Supplied By Facility): CTDIvol = ( 51.49 ) mGy, DLP = ( 1600.03 ) mGycm TECHNIQUE: The patient was scanned in a multi detector CT scanner. High resolution transaxial imaging was performed. Images were obtained from L1 to S1 level. Sagittal and coronal images were reconstructed. Individualized dose optimization techniques were used for this CT. COMPARISON: None FINDINGS: Normal lumbar lordosis. There is no substantial scoliosis. Schmorl''s node along the superior endplate of the L1 vertebrae. L1-2: Normal endplates. Normal disc height and morphology. Normal bilateral facet joints. Normal central canal and bilateral lateral recesses. Normal bilateral intervertebral neural foramina. Schmorl''s node involving the superior endplate of the L1 vertebrae. L2-3: Mild degree of disc space narrowing. There is evidence of a central and left lateral disc herniation causing deformity of the left side of the thecal sac as well as narrowing of the left intervertebral foramen. The herniated disc extends inferiorly to the disc space level on the left side. L3-4: Facet joint osteoarthritis and hypertrophy. Hypertrophy of the ligamenta flava. Moderate degree of central canal stenosis and bilateral neural foraminal stenosis. L4-5: Mild diffuse posterior disc bulge. Facet joint osteoarthritis and hypertrophy. Moderate degree of bilateral neural foraminal stenosis. L5-S1: Marked degree of disc space narrowing and disc degeneration. Facet joint osteoarthritis. Normal visualized paraspinous soft tissue structures. CT/Spine Lumbar without Contrast IMPRESSION: Multilevel degenerative changes, as described above. Central and left central disc herniation at the L2-L3 level which extends inferior to the disc space level worse on the left side. Stenosis at the L2-L3 and L3-L4 levels. Electronically Signed: Zoran Fuentes MD at 13:21 EST , Service support ,
--- NOTE | 2021-02-13 12:35 | ED.VIS.BACK ---
HPI History of Present Illness Chief Complaint: Back Narrative Narrative: Patient presents with her because of her chronic back pain. She states she has had problems for years. Pain is in her buttocks and low back, and radiates down towards her knee, thigh, and groin. Of note, she sees pain management, and had an injection 3 to 4 weeks ago. She states she saw them today and they want to do another injection. Since yesterday, she has had increasing pain in her back worse with movement. She denies any fever or chills. No saddle anesthesia, no loss of bowel or bladder. This is the same pain that she has had in the past, although she states it is worse. She takes Celebrex for the pain. [facility] Medical History Anemia Asthma Back pain CPAP (continuous positive airway pressure) dependence Depression Edema GERD (gastroesophageal reflux disease) Heel spur Hiatal hernia History of diverticulitis Hx of echocardiogram Hx of psoriatic arthritis Hypothyroidism Migraine headache MVP (mitral valve prolapse) Narcolepsy Pain aggravated by walking Post-menopausal Restless legs Rheumatic fever Shortness of breath on exertion Wears glasses Home Medications acetaminophen 1,000 mg PO TID 04/12/19 [History Last Taken 10/26/20] albuterol sulfate 1 puff INHALATION PRN PRN 04/12/19 [History Last Taken 01/26/21] cetirizine 10 mg PO DAILY 04/12/19 [History Last Taken 10/26/20] furosemide 40 mg PO DAILY 04/12/19 [History Last Taken 10/26/20] levothyroxine 100 mcg PO DAILY 04/12/19 [History Last Taken 01/26/21] pantoprazole 40 mg PO DAILY 04/12/19 [History Last Taken 01/26/21] paroxetine HCl 40 mg PO DAILY 04/12/19 [History Last Taken 10/26/20] celecoxib [Celebrex] 200 mg PO DAILY 07/24/20 [History Last Taken 10/26/20] ergocalciferol (vitamin D2) [Vitamin D2] 1,250 mcg PO ZAMORA 07/24/20 [History Last Taken 10/26/20] fluticasone propionate [Flovent] 2 puff INHALATION DAILY 07/24/20 [History Last Taken 10/26/20] ixekizumab [Taltz Autoinjector] 80 mg SUBCUT .Q28D 07/24/20 [History Last Taken 10/23/20] leflunomide 10 mg PO DAILY 07/24/20 [History Last Taken 10/26/20] pramipexole 1 mg PO TID 10/27/20 [History Last Taken 10/26/20] gabapentin 300 mg PO DAILY 02/13/21 [History Last Taken Unknown] Allergy/AdvReac Type Severity Reaction Status Date / Time latex Allergy Rash Verified 02/13/21 12:42 meperidine [From Demerol] AdvReac Vomiting Verified 02/13/21 12:42 minocycline AdvReac Other Verified 02/13/21 12:42 morphine AdvReac Vomiting Verified 02/13/21 12:42 spironolactone AdvReac Vomiting Verified 02/13/21 12:42 Sulfa (Sulfonamide AdvReac Other Verified 02/13/21 12:42 Antibiotics) Surgical History History of History of carpal tunnel surgery of left wrist History of carpal tunnel surgery of right wrist History of Kirstin fundoplication History of tonsillectomy History of vocal cord polypectomy Hx laparoscopic cholecystectomy Hx of dilation and curettage Hx of hernia repair Hx of hysterectomy Hx of sinus surgery Status post epidural steroid injection Social History Smoking Status: Never smoker ROS ROS ED ROS Narrative Constitutional: No fever, no chills. HEENT: No sore throat. No neck pain. No loss of vision. No rhinorrhea. Cardiovascular: No chest pain. No palpitations. No pedal edema. Respiratory: No cough, no shortness of breath. Abdominal: No abdominal pain. No nausea. No vomiting. Genitourinary: No dysuria. No hematuria. Musculoskeletal: No myalgias. No arthralgias. Positive low back and left buttocks pain radiating towards the thigh, and knee. Neurologic: No headaches. No dizziness. No lightheadedness. Skin: No rash. No change in color. Psychiatric: No depression. No anxiety. EXAM Physical Exam Narrative Exam Narrative: Afebrile. Vital signs noted. HEENT: Normocephalic. Atraumatic. PERRL, EOMI. Neck soft and supple. No point tenderness or step off. Cardiovascular: Regular rate and rhythm. No murmurs, rubs, or gallops appreciated. Respiratory: No tachypnea. Lungs clear to auscultation bilaterally. Gastrointestinal: Abdomen soft, nontender, with normoactive bowel sounds. No rebound or guarding. Neurological: Awake. Alert. Nonfocal, nonlateralizing. DTRs difficult to obtain. Positive flexion and extension of left hip and knee. EHL intact bilaterally. Skin: No rash. Normal color. No pallor. Musculoskeletal: No pedal edema. Full range of motion extremities. Mild tenderness in left sciatic notch. No vertebral point tenderness or bony step-off of lumbar spine. No noted erythema or fluctuance. Const Vital Signs: 02/13/21 11:26 Temperature 96.8 F L Temperature Source Temporal Pulse Rate 73 Respiratory Rate 18 Blood Pressure 144/94 H Blood Pressure Mean 110 Pulse Ox 96 Oxygen Delivery Method Room Air MDM MDM MDM Narrative Medical decision making narrative: Initially, I was going to give the patient an oral [place] tablet, but she has allergies to morphine and Ultram. She will be given intramuscular injections of Toradol and Norflex. I will obtain imaging in the form of CT of the lumbar spine to look for any fluid collection. CT of the L-spine shows multilevel degenerative changes, there is central disc herniation at the L2-L3 level and stenosis at the L2-L3, and L3-L4 levels. Upon repeat examination, she states that she feels improved and is able to move more. She has [employer] at home, and she had called her physician at pain management who had called in a Medrol Dosepak for her. At this point in time, I feel she be discharged safely home with follow-up. Return instructions to the emergency department were reviewed. Disposition is discharged home in stable condition. Radiography Diagnostic Testing: Clinical Impression(s) from Imaging Studies Lumbar Spine CT 02/13/21 12:33 IMPRESSION: Multilevel degenerative changes, as described above. Central and left central disc herniation at the L2-L3 level which extends inferior to the disc space level worse on the left side. Stenosis at the L2-L3 and L3-L4 levels. Electronically Signed: Zoran Fuentes MD at 13:21 EST , Service support , Discharge Plan Triage Chief Complaint: Back ED Provider: Thomas Khan Dx/Rx/DC Orders Clinical Impression: Back pain, Spinal stenosis, Lumbar radiculopathy Instructions: Relieving Back Pain, ED Back Care Tips, ED Back Pain (Acute or Chronic), ED Sciatica Prescriptions: No Action furosemide 40 MG tablet 40 mg PO DAILY RF: 0 acetaminophen 500 MG tablet 1,000 mg PO TID RF: 0 levothyroxine 100 MCG tablet 100 mcg PO DAILY RF: 0 pantoprazole 40 MG tablet 40 mg PO DAILY RF: 0 albuterol sulfate 1 PUFF inhaler 1 puff inhalation PRN PRN (Reason: Sob &/Or Wheezing) RF: 0 paroxetine HCl 40 MG tablet 40 mg PO DAILY RF: 0 cetirizine 10 MG capsule 10 mg PO DAILY RF: 0 celecoxib [Celebrex] 200 mg Capsule 200 mg PO DAILY RF: 0 leflunomide 10 mg Tablet 10 mg PO DAILY RF: 0 Flovent 220 mcg/actuation Hfa Aerosol Inhaler 2 puff INHALATION DAILY RF: 0 ergocalciferol (vitamin D2) [Vitamin D2] 1,250 mcg (50,000 unit) Capsule 1,250 mcg PO ZAMORA RF: 0 Taltz Autoinjector 80 mg/mL Auto-Injector 80 mg SUBCUT .Q28D RF: 0 pramipexole 1 mg Tablet 1 mg PO TID RF: 0 gabapentin 100 mg capsule 300 mg PO DAILY RF: 0 Primary Care Provider: Maddie Mccray Referrals: Maddie Mccray DO [Primary Care Provider] - 02/16/21 Disposition Disposition: Home, Self Care
[2021-02-13] MEDS: Orphenadrine 60 MG/2 ML Ampul IM (12:50)
[2021-02-13] MEDS: Ketorolac 60 MG/2 ML Vial IM (12:50)
[2021-02-13 15:32] VITALS: PULSE 72; O2SAT 97
== END 2021-02-13 15:32 | disposition home or self-care (01) ==
PROVIDERS: Emergency Provider Emergency Medicine; PCP Family Medicine
DX: M51.16 Intervertebral disc disorders with radiculopathy, lumbar region (principal); M48.061 Spinal stenosis, lumbar region without neurogenic claudication; E03.9 Hypothyroidism, unspecified; F32.A Depression, unspecified; G47.419 Narcolepsy without cataplexy; G89.29 Other chronic pain; I34.1 Nonrheumatic mitral (valve) prolapse; J45.909 Unspecified asthma, uncomplicated; K21.9 Gastro-esophageal reflux disease without esophagitis; G43.909 Migraine, unspecified, not intractable, without status migrainosus; L40.50 Arthropathic psoriasis, unspecified; G25.81 Restless legs syndrome; Z87.19 Personal history of other diseases of the digestive system; Z79.899 Other long term (current) drug therapy
CPT/HCPCS: 72131; 96372; 99282

== ENCOUNTER 2021-03-10 11:30 | Outpatient (RCR) | payer OTHER, SELFPAY ==
--- NOTE | 2021-03-02 11:53 | HP.OTEVAL ---
Patient's Visit Information ELICEO REY is a 55 year old F, referred to Occupational Therapy by Dr. 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 Date of Evaluation: 02/24/21 Occupational Therapist: Erin Grover, PAMR/Jl, CHT - Subjective This 55 year old female was seen for OT eval with dx of right UE radial nerve lesion- this happened mid Oct. pt states she had a snap and grind with right forearm rotation- this was painful and she went to family dr. had CT scan- results were fine- pain is better- but arm is tight and turning her forearm up is very difficult to perform. 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 with ADLs and IADLs. - Rehabilitation General Assessment: pt demo with limited right forearm supination- feeling of soreness and tightness decreasing pts IND. with meal prep tasks. Pt would benefit from skilled OT services 2x week for 6 weeks to increase forearm ROM and return pt to her PLOF. Today therapist ed. pt on forearm stretches and radial nerve glide. pt demo understanding and agree to POC. Rehabilitation Potential: Good - Anticipated Interventions A/AAROM/PROM, Strengthening, Modalities, Joint Protection/Energy Conservation, Ergonomic Education, Education re assistive Equipment, Education re Diagnosis - Visit Plan Frequency: 2x /Week Duration: 6 Weeks TEXT: Thank you for the opportunity to evaluate your patient. For Medicare and Medicare HMO plans, please review the plan of care and approve it. It will need to be FAXED BACK to us at [phone] for Medicare purposes. Please let me know if there are questions or concerns regarding this plan of care. Physician Signature: Date:
--- NOTE | 2021-03-10 12:08 | HP.OTREVAL ---
Dr. 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 Please see the progress note below for an update on the occupational therapy plan of care! Subjective: pt states she has not been able to take her arthritis medication since Nov. - pt states she feels she has a lot of swelling throughput her body and this may be limiting her progress with her feeling of tightness in her right arm- pt reports her compliance with stretching and radial nerve glides. Objective/Function: left wrist 75/55 increase in flexion by 5* since eval. right forearm supination 75 increase from 65*. strength increased from 50# to 55#. Therapy has ed. pt on posture exercises- forearm stretching and radial nerve glides- therapist also ed. 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 with ADLs and IADLs. Anticipated Interventions Anticipated Interventions: A/AAROM/PROM, Strengthening, Modalities, Joint Protection/Energy Conservation, Ergonomic Education, Education re assistive Equipment, Education re Diagnosis Please do not hesitate to contact me at [phone] by phone or if you have questions or concerns regarding this new plan of care! Sincerely, Erin Grover, OTR/L, CHT
--- NOTE | 2021-07-27 11:36 | HP.OT.NRP ---
ELICEO REY was seen in my office for initial evaluation on 02/24/21. The following Plan of Care was established for this patient: pt has not been seen in OT since 03/10/21- due to time lapse in services pt d/c at this time. Initial Frequency: 2x /Week Initial Duration: 6 Weeks Plan: pt to return to [facility] Anticipated Interventions: A/AAROM/PROM, Strengthening, Modalities, Joint Protection/Energy Conservation, Ergonomic Education, Education re assistive Equipment, Education re Diagnosis This patient was last seen in our office . Pertinent comments regarding their Occupational therapy will appear below: At this point I will be discontinuing this patient from occupational therapy. I would be happy to see this patient again in the future if found appropriate by the physician. Thank you! Erin Grover, OTR/L, CHT
== END 2021-03-10 19:00 | disposition home or self-care (01) ==
LOC: OT 11:30
PROVIDERS: PCP Family Medicine; Referring Provider Orthopaedic Surgery Hand Surgery; Visit Provider Orthopaedic Surgery Hand Surgery
DX: G56.31 Lesion of radial nerve, right upper limb (principal); L40.50 Arthropathic psoriasis, unspecified
CPT/HCPCS: 97035; 97110; 97140; 97166; 97530

== ENCOUNTER 2021-03-16 08:32 | Day surgery (SDC) | payer OTHER, SELFPAY ==
--- NOTE | 2021-03-12 17:05 | HP.PCM_ITS ---
History and Physical Date of Admission: 03/16/21 Chief Complaint: Follow up post SI injection decreased pain by 70% for 1 week History of Present Illness: This is a 55 Y/O female who was seen and evaluated at our office today as a follow up. Pain: lower back, left hip . groin Quality: constant Region: pain in lower back radiates across into the left hip and groin Severity: intense ache Timin+ yrs Aggravated by: walking Relieved by: rest, laying down with tens unit on Pain score (out of 10): 11/21 Other info: Patient is here for a follow up post SI injection decreased pain by 70% for 1 week. Reports pain lower back , left hip and groin. States pain is a constant intense aching that increases with activity. states that the pain makes it hard to walk. needs refill on celebrex Review of Systems: Patient denies any fever, chills, headache or change in vision or hearing problems.Reports weight gain.No cp, sob, brasher, pnd, orthopnea, or peripheral edema.They note no lumps or swollen glands, no new rashes, changing moles, or change in bowel or bladder function.Mood has been okay. Past Medical History: General anesthesia (trouble breathing) h/o nasal allergies h/o asthma h/o gastroesophageal reflux h/o unspecific arthritis, osteoarthritis h/o depression h/o hypothyroidism h/o osteoporosis h/o anemia h/o old compression fx h/o Psoriatic arthritis 2019 h/o narcolepsy 2020 s/p hysterectomy 2009 s/p tonsillectomy 1971 s/p lt foot surgery 1986,1995 s/p Cholecystectomy 1996 s/p sinus sx 1990 s/p neha 1999,2001 s/p Caesarean section 1994 s/p D&C 2005 s/p kristine carpal tunnel release 2009 s/p hernia repair 2013 s/p vocal chord sx x3 1989,1991,1992 Family History: ======== Structured Family History ======== Family History: Crohn's Father: Chronic obstructive pulmonary disease, Hypertension, Arthritis Mother: Heart disease Social History: [Tobacco: Never smoker Pipe Smoker: No Cigar Smoker: No Chewing Tobacco User: No Electronic Cigarette User: No] Living situation: 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 drugs: Denies Allergies: Bactrim, Demerol, Morphine Sulfate ADD-Washburn, Latex, Spironolactone Medications: 1) Boniva 150 mg oral tablet, 1 tab po once per month 2) CeleBREX 200 mg oral capsule, 1 CAP PO daily with food. 3) ferrous sulfate 325 mg (65 mg elemental iron) oral tablet, Take 1 tablet by mouth once daily 4) Flovent HFA 220 mcg/inh inhalation aerosol, 2 puffs every morning 5) fluticasone 50 mcg/inh nasal spray, 1 spray each nostril once daily 6) gabapentin 100 mg oral capsule, Take 1 capsule by mouth once daily 7) Lasix 40 mg oral tablet, Take 1 tablet by mouth once daily 8) leflunomide 20 mg oral tablet, Take 1 tablet by mouth once daily 9) Mirapex 1 mg oral tablet, Take 1 tablet by mouth 2 times a Day 10) Paxil 40 mg oral tablet, Take 1 tablet by mouth once daily 11) potassium chloride 10 mEq oral tablet, extended release, Take 1 tablet by mouth 2 times a Day 12) Protonix 40 mg oral delayed release tablet, Take 1 tablet by mouth once daily 13) PT to eval and treat, aquatherapy 14) Synthroid 100 mcg (0.1 mg) oral tablet, Take 1 tablet by mouth once daily 15) Taltz Prefilled Syringe 80 mg/mL subcutaneous solution, every two weeks 16) Tylenol Extra Strength Cool 500 mg oral tablet, Take 2 tablet by mouth 2-3 times a Day 17) Vitamin D3 50,000 intl units (1250 mcg) oral capsule, 1 tab po once per week 18) ZyrTEC 10 mg oral tablet, Take 1 tablet by mouth once daily Physical Examination: Wt: 355.6 lb Ht/Ln: 66 in BMI: 57.4 BP: 117/72 Pulse: 77 RR: 16 Temp: 96.9F Well nourished and well developed in no acute distress. Alert and oriented to person, place and time. Affect is normal and appropriate. Mucosa pink and moist. Respirations even and unlabored. Neck is supple without significant lymphadenopathy or thyromegaly. Abdomen soft & non-tender. No HSM or masses appreciated. Extremities show no cyanosis, clubbing, or edema, obese. Gait is Antalgic. Lumbar paraspinal muscle tenderness Lumbar ROM is limited due to pain Bilateral lumbar facet loading is positive Left Sacroiliac Joint Tenderness on palpation Positive HARRIS test. Positive pelvic rock test SLR is negative. Motor and sensory exam is unchanged. Goals: Health Concerns: Assessment & Plan: # Degeneration of lumbosacral intervertebral disc (M51.37): # Lumbosacral spondylosis (M47.817): # Lumbosacral radiculopathy (M54.17): # Lumbosacral stenosis (M48.07): # Arthropathy of lumbar facet (M46.96): # Disorder of sacrum (M53.3): # Long-term current use of drug therapy (Z79.899): PRESCRIBE: CeleBREX 200 mg oral capsule, 1 CAP PO daily with food., # 90, RF: 0. (Transmitted by MERCEDES MONAHAN NP) Continue current medication regime. OARRS was reviewed today. UDS was reviewed and was compliant. SOAPP score is 6 Discussed the common side effects of this medication and the need to follow-up regularly and alert me if any evidence of stomach upset, bleeding, black tarry stool, or BRBPR. Patient understands Pt was educated on avoiding OTC nsaids with use of celebrex MRI of the lumbar spine was reviewed again with the pt today and they appear to understand. There are no signs of diversion or addiction with the pt, there is also no signs of abuse or misuse, continues to do well with their medications without any side effects, we will continue monitoring the pt closely. PEG was reviewed today. Life style modifications were also discussed today and the pt appears to understand. Weight loss was recommended today through diet and exercise. Risks and benefits of the above meds were discussed with the pt and they appear to understand. The common side effects of the medications were discussed and all of their questions and concerns were answered and they appear to understand Discussed natural and expected course of this diagnosis and need to alert me if symptoms do not follow expected course, or if any worse. Pt is to continue with her HEP. Pt has tried multiple modalities with no success, we will schedule the pt for left sided lumbar transforminal epidural steroid injection L4-S1 under fluoroscopy We have discussed the risks, benefits as well as alternatives of the procedure and the patient appears to understand and would like to proceed with the above plan. The above plan was discussed today with the pt in details and they appear to understand and agrees to continue with the plan.
[2021-03-16] VITALS (7 sets, daily range): BP systolic 106–131; BP diastolic 66–89; PULSE 72–83; RESP 16; TEMP 36.2–36.4; O2SAT 94–98; BMI 57.6
[2021-03-16] MEDS: Lactated Ringers 1,000 ML 15 ML IV (09:00)
[2021-03-16] MEDS: Bupivacaine 0.25% 30 ML Vial (09:43)
--- NOTE | 2021-03-16 09:47 | RAD_ITS ---
STUDY: X-RAY - SACROILIAC JOINTS REASON FOR EXAM: Female, 55 years old. Left sacroiliac joint injection. TECHNIQUE: 1 intraprocedural documentation view(s) of the sacroiliac joints were obtained. COMPARISON: 01/26/2021. FINDINGS: A single intraprocedural image shows contrast over the lower portion of the sacroiliac joint. RAD/Fluoro Guided Needle Placement IMPRESSION: Intraprocedural documentation image as described. Electronically Signed: Henry Yen MD at 10:45 EST , Service support ,
[2021-03-16] MEDS: Lidocaine 1% (5 ml sdv) 5 ML Vial (09:55)
[2021-03-16] MEDS: MethylPREDNISolone Acetate 40 MG/ML Vial IM (09:55)
--- NOTE | 2021-03-16 11:11 | PCM.OPRPT ---
Report of Operation Date of Procedure: 03/16/21 Description of Surgical Findings:: Description of Surgical Findings:: PREOPERATIVE DIAGNOSES: 1. Sacroiliitis. 2. Sacroiliac joint dysfunction. POSTOPERATIVE DIAGNOSES: 1. Sacroiliitis. 2. Sacroiliac joint dysfunction. PROCEDURE PERFORMED: Left-sided sacroiliac joint steroid injection under fluoroscopy guidance. ANESTHESIA: MAC. BLOOD LOSS: Minimal. COMPLICATIONS: None. DESCRIPTION OF PROCEDURE: History and physical of today was reviewed. Risks and benefits of the procedure were explained. The patient understood and agreed to the procedure. Informed consent was obtained. IV inserted per routine protocol. The patient was taken to the operating room and placed in the prone position with a pillow positioned underneath the abdomen. The left lower back and buttock area was prepped and draped in a sterile fashion using iodine x3. Under fluoroscopy guidance on an AP view, the left SI joint was visualized. The skin and subcutaneous tissue was anesthetized with approximately 3 mL of 1% lidocaine using a 25-gauge regular needle. Under direct visualization with fluoroscopy at approximately 15-degree angle, using a 22-gauge 3-1/2-inch spinal needle, the needle was advanced via the skin. The tip of the needle was maneuvered and directed towards the inferior one-third of the posterior SI joint. Once the tip of the needle was at the vicinity of the joint, after negative aspiration for blood or CSF, a total of 1 mL of contrast was injected to confirm correct placement of the needle as well as cephalocaudal spread. Confirmation was obtained on AP as well as oblique view. After repeated negative aspiration and confirmation, a total of 4 mL of preservative-free 0.25% Marcaine with 40 mg of Depo-Medrol was injected in and around the SI joint. The needle was then removed intact. The patient experienced no sign or symptoms of intrathecal or intravascular injection. The patient experienced no paresthesia. The procedure was completed without any apparent difficulty or any complications. The patient appeared to tolerate it well. ASSESSMENT AND PLAN: This is a 55-year-old female with sacroiliitis, SI joint dysfunction, status post left-sided sacroiliac joint steroid injection under fluoroscopic guidance, patient will continue her current medications, patient will follow approximately 2 weeks for reevaluation.
== END 2021-03-16 23:59 | disposition home or self-care (01) ==
LOC: SDC 08:35 → AC 08:36
PROVIDERS: PCP Family Medicine; Referring Provider Anesthesiology Pain Medicine; Visit Provider Anesthesiology Pain Medicine
PROC: 3E0U3GC Introduction of Other Therapeutic Substance into Joints, Percutaneous Approach (ICD-10-PCS; CPT 27096; principal; 2021-03-16 10:05)
DX: M46.1 Sacroiliitis, not elsewhere classified (principal); L40.50 Arthropathic psoriasis, unspecified; M46.96 Unspecified inflammatory spondylopathy, lumbar region; M47.816 Spondylosis without myelopathy or radiculopathy, lumbar region; M47.27 Other spondylosis with radiculopathy, lumbosacral region; M48.07 Spinal stenosis, lumbosacral region; J45.909 Unspecified asthma, uncomplicated; K21.9 Gastro-esophageal reflux disease without esophagitis; F32.A Depression, unspecified; E03.9 Hypothyroidism, unspecified; Z79.899 Other long term (current) drug therapy; M51.17 Intervertebral disc disorders with radiculopathy, lumbosacral region; I34.1 Nonrheumatic mitral (valve) prolapse; G43.909 Migraine, unspecified, not intractable, without status migrainosus; G47.419 Narcolepsy without cataplexy; G25.81 Restless legs syndrome
CPT/HCPCS: 20610; 76000; 77002; J7120

== ENCOUNTER 2021-05-04 19:53 | Inpatient (IN) | payer OTHER, SELFPAY ==
[2021-05-04 19:54] VITALS: BP 160/98; PULSE 103; RESP 21; TEMP 36.8; O2SAT 95; BMI 56.7
[2021-05-04 20:10] VITALS: O2SAT 95
--- NOTE | 2021-05-04 20:18 | EKG12_ITS ---
Test Reason : AM EKG Blood Pressure : / mmHG Vent. Rate : 089 BPM Atrial Rate : 089 BPM P-R Int : 144 ms QRS Dur : 092 ms QT Int : 390 ms P-R-T Axes : 042 -15 019 degrees QTc Int : 474 ms Normal sinus rhythm Voltage criteria for left ventricular hypertrophy Nonspecific ST abnormality Abnormal ECG Confirmed by GLORY MCKEON, NARESH ([id number]), editor magazine LANETTE ANDREWS ([id number]) on 05/07/2021 8:31:10 AM Referred By: EVARISTO Confirmed By:NARESH HOLDER MD
--- NOTE | 2021-05-04 20:20 | RAD_ITS ---
STUDY: X-RAY CHEST REASON FOR EXAM: Female, 55 years old. CHEST PAIN chest pain TECHNIQUE: XR Chest 1 View COMPARISON: None FINDINGS: There is no demonstrated pleural abnormality. Normal size heart. Normal mediastinum and buck. Normal visualized pulmonary arteries. Normal visualized aortic arch and descending thoracic aorta. Normal visualized thoracic spine. Normal visualized ribs, clavicles, and shoulders. There is no demonstrated abnormality of the visualized soft tissue structures of the upper abdomen. RAD/Chest 1 View (Portable) IMPRESSION: There are no acute findings. Electronically Signed: Honorio Raymundo MD at 20:43 EST ,
[2021-05-04] MEDS: Aspirin 81 MG TAB.CHEW 324 MG PO (20:24)
[2021-05-04 20:27] LABS: Absolute Lymphocyte Count 2.36 X10^3/uL (0.83-4.51); Absolute Neutrophil Count 6.5 X10^3/uL (2.0-7.7); Basophil# 0.05 X10^3/uL; Basophil% 0.5 % (0-1); Eosinophil# 0.12 X10^3/uL; Eosinophils% 1.2 % (0-5); Hematocrit 43.5 % (37-47); Hemoglobin 14.9 g/dL (12.0-15.0); Lymphocyte # 2.36 X10^3/ul (0.83-4.51); Lymphocyte % 24.2 % (19-41); Mean Corp Hgb Conc 34.3 g/dL (32-36); Mean Corpuscular Hgb 33.5 pg (27.0-32.0); Mean Corpuscular Volume 97.8 fL (81-99); Monocyte% 7.2 % (0-10); NRBC Flagged by Analyzer 0 % (0-5); Neutrophil % 66.5 % (47-70); Platelet Count 350 K/mm3 (150-450); RBC Distribution Width CV 13.1 % (11.6-14.6); RBC Distribution Width SD 46.7 fl (35.1-43.9); Red Blood Count 4.45 M/mm3 (4.2-5.4); White Blood Count 9.8 K/mm3 (4.4-11.0)
--- NOTE | 2021-05-04 20:31 | ED.VIS.CHEST ---
HPI History of Present Illness Chief Complaint: Shortness of Breath Detail of Chief Complaint: Midsternal chest pressure with shortness of breath, nausea Informant: patient Onset/Context/Timing Onset: Hours Activity at onset: sudden, activity on onset and rest Timing: Intermittent Quality: Positive for Pressure Location: Substernal Current Severity: 10 Maximum Severity: 7/10 Worsened By: Exertion; Not Worsened By Movement of Arm, Movement of Torso, Eating, Palpation, Breathing and Coughing Relieved By: Nothing and - (Possibly rest) Associated Symptoms: Positive for Nausea, Diaphoresis, Dyspnea and Cough (Cough is chronic's since diagnosed with pneumonia 1 month ago); Negative for Vomiting, Fever, Lightheadedness, Acid Reflux and Palpitations Narrative Narrative: Patient is a 55-year-old woman who is morbidly obese and has history of hypothyroidism, obstructive sleep apnea and hypertension who presents with midsternal chest discomfort. First episode occurred around 10 AM. She has had greater than 5 episodes. They last approximately 1 to 5 minutes. Exertion makes it worse. There have been some episodes that were associated with nausea and shortness of breath. The last episode was not associated with nausea, shortness of breath and diaphoresis. She has never had a cardiac cath test done. Prior Similar Symptoms: No CVD Risk Factors: Positive for Hypercholesterolemia and Family History 1' </=55; Negative for Hypertension, Diabetes and Smoking PE Risk Factors: Negative for Recent Travel/Surgery, Recent Immobilization, Prior DVT or PE, Cancer and OCP + Smoking + >/=35 TAD Risk Factors: Negative for Marfan's Syndrome, Hypertension and Family History PFSH PFSH Medical History Anemia Asthma Back pain CPAP (continuous positive airway pressure) dependence Depression Edema GERD (gastroesophageal reflux disease) Heel spur Hiatal hernia History of diverticulitis Hx of echocardiogram Hx of psoriatic arthritis Hypothyroidism Migraine headache MVP (mitral valve prolapse) Narcolepsy Pain aggravated by walking Post-menopausal Restless legs Rheumatic fever Shortness of breath on exertion Wears glasses Home Medications acetaminophen 1,000 mg PO TID 04/12/19 [History Last Taken 10/26/20] albuterol sulfate 1 puff INHALATION PRN PRN 04/12/19 [History Last Taken 01/26/21] cetirizine 10 mg PO DAILY 04/12/19 [History Last Taken 10/26/20] furosemide 40 mg PO DAILY 04/12/19 [History Last Taken 10/26/20] levothyroxine 100 mcg PO DAILY 04/12/19 [History Last Taken 01/26/21] pantoprazole 40 mg PO DAILY 04/12/19 [History Last Taken 01/26/21] paroxetine HCl 40 mg PO DAILY 04/12/19 [History Last Taken 10/26/20] celecoxib [Celebrex] 200 mg PO DAILY 07/24/20 [History Last Taken 10/26/20] ergocalciferol (vitamin D2) [Vitamin D2] 1,250 mcg PO ZAMORA 07/24/20 [History Last Taken 10/26/20] fluticasone propionate [Flovent] 2 puff INHALATION DAILY 07/24/20 [History Last Taken 10/26/20] ixekizumab [Taltz Autoinjector] 80 mg SUBCUT .Q28D 07/24/20 [History Last Taken 10/23/20] leflunomide 10 mg PO DAILY 07/24/20 [History Last Taken 10/26/20] pramipexole 1 mg PO TID 10/27/20 [History Last Taken 10/26/20] gabapentin 300 mg PO DAILY 02/13/21 [History Last Taken Unknown] prednisone 30 mg PO DAILY 03/16/21 [History Last Taken Unknown] Allergy/AdvReac Type Severity Reaction Status Date / Time latex Allergy Rash Verified 05/04/21 20:05 meperidine [From Demerol] AdvReac Vomiting Verified 05/04/21 20:05 minocycline AdvReac Other Verified 05/04/21 20:05 morphine AdvReac Vomiting Verified 05/04/21 20:05 spironolactone AdvReac Vomiting Verified 05/04/21 20:05 Sulfa (Sulfonamide AdvReac Other Verified 05/04/21 20:05 Antibiotics) Surgical History History of History of carpal tunnel surgery of left wrist History of carpal tunnel surgery of right wrist History of Kirstin fundoplication History of tonsillectomy History of vocal cord polypectomy Hx laparoscopic cholecystectomy Hx of dilation and curettage Hx of hernia repair Hx of hysterectomy Hx of sinus surgery Status post epidural steroid injection Social History (Updated 05/04/21 @ 20:[address] Jay Stephenson MD) household members: spouse Smoking Status: Never smoker substance use type: does not use ROS ROS ED Constitutional Constitutional ED: Denies chills, fever(s), subjective, sweats or weight loss Eyes Eyes: Denies blurry vision, change in vision or diplopia ENT ENT ED: Denies ear pain, rhinorrhea or sore throat Cardiovascular Cardiovascular: Reports as per HPI and chest pain; Denies orthopnea, palpitations, paroxysmal nocturnal dyspnea or racing heartbeat Respiratory/Chest Respiratory/Chest: Reports dyspnea; Denies cough, dyspnea on exertion, orthopnea, paroxysmal nocturnal dyspnea or sputum Gastrointestinal Gastrointestinal: Reports nausea; Denies abdominal pain, constipation, diarrhea, melena or vomiting Genitourinary Genitourinary ED: Denies dysuria, hematuria or urinary frequency Musculoskeletal Musculoskeletal: Denies arthralgias, back pain, myalgias or neck pain Integumentary Denies abscess or rash Neurologic Neurologic: Denies headache(s) or weakness Psychiatric Psychiatric: Denies depression Endocrine Endocrinology: Denies polydipsia, polyphagia or polyuria Hematologic/Lymphatic Hematologic/Lymphatic: Denies easy bleeding or easy bruising EXAM Physical Exam Const Vital Signs: 05/04/21 19:54 05/04/21 20:10 05/04/21 20:25 Temperature 98.2 F Temperature Source Oral Pulse Rate 103 H Respiratory Rate 21 H Respiratory Effort Short of Breath Respiratory Depth Normal Respiratory Pattern Normal Blood Pressure 160/98 H Blood Pressure Mean 118 Pulse Ox 95 Oxygen Delivery Method Room Air Room Air Room Air 05/04/21 22:27 Temperature Temperature Source Pulse Rate 95 Respiratory Rate 19 H Respiratory Effort Respiratory Depth Respiratory Pattern Blood Pressure 168/93 H Blood Pressure Mean 118 Pulse Ox 96 Oxygen Delivery Method Room Air Positive well nourished, well developed and obese General Appearance ED: well developed and NAD; Negative for pallor Nutritional Appearance: obese HEENT Reports TM's clear and moist mucous membranes normocephalic and atraumatic Tympanic Membrane ED: Yes TM's clear Eyes PERRL and EOMs intact bilaterally General Eye ED: Negative for pale conjunctiva or scleral icterus Neck no lymphadenopathy, supple and no JVD Resp normal respiratory effort and clear to auscultation bilaterally Effort and Inspection: respiratory distress Cardio regular rate, regular rhythm, S1 normal heart sound, S2 normal heart sound and no murmurs GI normal to inspection, nondistended, normoactive bowel sounds, soft to palpation and non-tender Back/Spine no CVA tenderness; Negative for no thoracic nor lumbar tenderness Cervical Spine: Negative for cervical spine tenderness Extremity normal to inspection General Extremety ED: Negative for edema, pulses abnormal or tenderness General Extremity: Negative for edema or pulses abnormal Neuro oriented x3 and CN's II-XII intact bilaterally Sensorium / Orientation: awake and alert Psych mental status grossly normal Skin no rashes or lesions noted and no wounds General Skin Exam: Negative for jaundice or pallor Heart Score History: Slightly/Non-Suspicious ECG: Normal Age: >45 - <65 years Risk Factors: 1 or 2 Risk Factors Score: 2 MDM MDM Lab Data Attestation: I reviewed the patient's lab results. Labs: Laboratory Results - last 24 hr 05/04/21 05/04/21 05/04/21 20:05 20:05 21:50 WBC 9.8 RBC 4.45 Hgb 14.9 Hct 43.5 MCV 97.8 MCH 33.5 H MCHC 34.3 RDW Std Deviation 46.7 H RDW Coeff of Peyman 13.1 Plt Count 350 MPV 9.0 Immature Gran % (Auto) 0.400 Neut % (Auto) 66.5 Lymph % (Auto) 24.2 [place] % (Auto) 7.2 Eos % (Auto) 1.2 Baso % (Auto) 0.5 Absolute Neuts (auto) 6.5 Absolute Lymphs (auto) 2.36 Nucleated RBC % 0 Sodium 134 L Potassium 2.3 L* Chloride 87 L Carbon Dioxide 34.0 H Anion Gap 13 BUN 24 H Creatinine 1.33 H Estim Creat Clear Calc 44.74 Est GFR (MDRD) Af Amer 53 L Est GFR (MDRD) Non-Af 44 L BUN/Creatinine Ratio 18.0 Glucose 189 H Calcium 9.9 Troponin I High Sens 16 20 Since the first and second troponin are greater than 8 she falls in the observation patient algorithm arm. Her heart will contact hospitalist for serial enzymes and stress test in the morning. Radiography Diagnostic Testing: Clinical Impression(s) from Imaging Studies Chest X-Ray 05/04/21 20:20 IMPRESSION: There are no acute findings. Electronically Signed: Honorio Raymundo MD at 20:43 EST Reading Location ID and State: [facility] / [place] , Service support , Discharge Plan Dx/Rx/DC Orders Clinical Impression: Chest pressure Disposition Disposition: Acute Care Hospital [facility]
[2021-05-04 21:06] LABS: Anion Gap 13 (5-15); BUN 24 mg/dL (7-18); Calcium,Total 9.9 mg/dL (8.5-10.1); Chloride 87 mmol/L (98-107); Creatinine, Serum 1.33 mg/dL (0.55-1.02); EST Glomerular Filtration Rate 44 mL/min (>60); Est Glom Filt Rate - Afr Amer 53 mL/min (>60); Estimated Creatinine Clearance 44.74 ml/min; Glucose 189 mg/dL (74-106); Potassium 2.3 mmol/L (3.5-5.1); Sodium Level 134 mmol/L (136-145); Troponin-I HS 16 pg/mL (3.0-54.0)
[2021-05-04 22:23] LABS: Troponin-I HS 20 pg/mL (3.0-54.0)
[2021-05-04 22:27] VITALS: BP 168/93; PULSE 95; RESP 19; O2SAT 96
--- NOTE | 2021-05-04 23:26 | PCM.HP.STD ---
Documented by User: DAWN Pineda 05/04/21 23:59 HPI - General General Date of Admission: 05/04/21 Date of Service: 05/04/21 Chief Complaint: Chest pain HPI Narrative ELICEO REY, is a 55 F who presents with complaints of chest pain and shortness of breath. Patient states that she has multiple episodes at home throughout the day with the first episode occurring around 10 AM. Patient states that the last episode she had prior to arriving at the ER had her very concerned due to associated nausea, shortness of breath and diaphoresis. Patient states that she has had an echocardiogram in the past but has never underwent cardiac catheterization. Patient reports medical history that includes hypothyroidism, obstructive sleep apnea, GERD, depression, psoriatic arthritis. Patient reports that she was at one time told that she had a mitral valve prolapse however she is not sure what this is still true due to subsequent echocardiograms been done and no one saying anything about this. Patient states she does not have hypertension or hyperlipidemia. [facility] Medical History (Updated 05/04/21 @ 23:47 by DAWN Pineda) Anemia Asthma Back pain CPAP (continuous positive airway pressure) dependence Depression Edema GERD (gastroesophageal reflux disease) Heel spur Hiatal hernia History of diverticulitis Hx of echocardiogram Hx of psoriatic arthritis Hypothyroidism Migraine headache MVP (mitral valve prolapse) Narcolepsy Pain aggravated by walking Post-menopausal Restless legs Rheumatic fever Shortness of breath on exertion Wears glasses Home Medications acetaminophen 1,000 mg PO TID 04/12/19 [History Last Taken 10/26/20] cetirizine 10 mg PO DAILY 04/12/19 [History Last Taken 10/26/20] furosemide 40 mg PO DAILY 04/12/19 [History Last Taken 10/26/20] levothyroxine 100 mcg PO DAILY 04/12/19 [History Last Taken 01/26/21] pantoprazole 40 mg PO DAILY 04/12/19 [History Last Taken 01/26/21] paroxetine HCl 40 mg PO DAILY 04/12/19 [History Last Taken 10/26/20] ergocalciferol (vitamin D2) [Vitamin D2] 1,250 mcg PO ZAMORA 07/24/20 [History Last Taken 10/26/20] fluticasone propionate [Flovent] 2 puff INHALATION DAILY 07/24/20 [History Last Taken 10/26/20] ixekizumab [Taltz Autoinjector] 80 mg SUBCUT .Q28D 07/24/20 [History Last Taken 10/23/20] leflunomide 10 mg PO DAILY 07/24/20 [History Last Taken 10/26/20] pramipexole 1 mg PO TID 10/27/20 [History Last Taken 10/26/20] prednisone 30 mg PO DAILY 03/16/21 [History Last Taken Unknown] metolazone 2.5 mg PO DAILY 05/05/21 [History Last Taken Unknown] Allergy/AdvReac Type Severity Reaction Status Date / Time latex Allergy Rash Verified 05/04/21 20:05 meperidine [From Demerol] AdvReac Vomiting Verified 05/04/21 20:05 minocycline AdvReac Other Verified 05/04/21 20:05 morphine AdvReac Vomiting Verified 05/04/21 20:05 spironolactone AdvReac Vomiting Verified 05/04/21 20:05 Sulfa (Sulfonamide AdvReac Other Verified 05/04/21 20:05 Antibiotics) Surgical History History of History of carpal tunnel surgery of left wrist History of carpal tunnel surgery of right wrist History of Kirstin fundoplication History of tonsillectomy History of vocal cord polypectomy Hx laparoscopic cholecystectomy Hx of dilation and curettage Hx of hernia repair Hx of hysterectomy Hx of sinus surgery Status post epidural steroid injection Social History household members: spouse Smoking Status: Never smoker substance use type: does not use ROS Constitutional Constitutional: Denies anorexia, chills, fatigue, fever(s), malaise or weakness Cardiovascular Cardiovascular: Reports chest pain with activity, dyspnea on exertion, leg edema and nausea; Denies edema or palpitations Respiratory/Chest Respiratory/Chest: Reports shortness of breath with exertion; Denies cough Gastrointestinal Gastrointestinal: Reports nausea; Denies abdominal pain, constipation, diarrhea or vomiting Genitourinary Genitourinary: Denies dysuria Musculoskeletal Musculoskeletal: Reports back pain; Denies extremity pain, joint pain, joint stiffness or joint swelling Integumentary Integumentary: Denies dry skin Neurologic Neurologic: Denies abnormal gait, abnormal speech, confusion, dizziness or focal weakness Psychiatric Psychiatric: Denies anxiety or depression Endocrine Endocrinology: Denies change in body appearance Hematologic/Lymphatic Hematologic/Lymphatic: Denies anemia, easy bleeding or easy bruising Vital Signs Vital Signs Vital Signs: 05/04/21 19:54 05/04/21 20:10 05/04/21 20:25 Temperature 98.2 F Temperature Source Oral Pulse Rate 103 H Respiratory Rate 21 H Respiratory Effort Short of Breath Respiratory Depth Normal Respiratory Pattern Normal Blood Pressure 160/98 H Blood Pressure Mean 118 Pulse Ox 95 Oxygen Delivery Method Room Air Room Air Room Air 05/04/21 22:27 Temperature Temperature Source Pulse Rate 95 Respiratory Rate 19 H Respiratory Effort Respiratory Depth Respiratory Pattern Blood Pressure 168/93 H Blood Pressure Mean 118 Pulse Ox 96 Oxygen Delivery Method Room Air Weight Weight: 351 lb 6.669 oz Body Mass Index (BMI) 56.7 Physical Exam Const alert, oriented x3 and no apparent distress General Appearance: cooperative HEENT normocephalic and head/scalp atraumatic Eyes conjunctivae normal and no scleral icterus Neck supple General: trachea midline Resp normal respiratory effort, normal air movement and clear to auscultation bilaterally Effort and Inspection: able to speak in complete sentences and symmetric chest movement Cardio regular rate, regular rhythm, S1 normal heart sound, S2 normal heart sound and peripheral pulses 2+ throughout GI normal to inspection, nondistended, normoactive bowel sounds, soft to palpation and non-tender Extremity normal capillary refill General Extremity: edema bilateral lower extremity Details: moderate and no tenderness to palpation of joints or extremities Skin General Skin Exam: no breakdown and turgor normal Lesions: no lesions Rashes: no rashes Neuro no focal motor deficits and no sensory deficits noted Speech: speech normal Motor Exam: Negative for general weakness Psych thought process normal, cooperative and affect normal Appearance: appropriate Results Lab / Micro Data Result Diagrams: 05/04/21 20:05 05/04/21 20:05 Labs: Laboratory Results - last 24 hr 05/04/21 20:05: WBC 9.8, RBC 4.45, Hgb 14.9, Hct 43.5, MCV 97.8, MCH 33.5 H, MCHC 34.3, RDW Std Deviation 46.7 H, RDW Coeff of Peyman 13.1, Plt Count 350, MPV 9.0, Immature Gran % (Auto) 0.400, Neut % (Auto) 66.5, Lymph % (Auto) 24.2, [place] % (Auto) 7.2, Eos % (Auto) 1.2, Baso % (Auto) 0.5, Absolute Neuts (auto) 6.5, Absolute Lymphs (auto) 2.36, Nucleated RBC % 0 05/04/21 20:05: Sodium 134 L, Potassium 2.3 L*, Chloride 87 L, Carbon Dioxide 34.0 H, Anion Gap 13, BUN 24 H, Creatinine 1.33 H, Estim Creat Clear Calc 44.74, Est GFR (MDRD) Af Amer 53 L, Est GFR (MDRD) Non-Af 44 L, BUN/Creatinine Ratio 18.0, Glucose 189 H, Calcium 9.9, Troponin I High Sens 16 05/04/21 21:50: Troponin I High Sens 20 Radiology Impression Chest X-Ray 05/04/21 20:20 IMPRESSION: There are no acute findings. Electronically Signed: Honorio Raymundo MD at 20:43 EST Reading Location ID and State: [facility] / [place] , Service support , Assessment & Plan Assessment/Plan (1) Chest pressure: (2) Acute kidney injury: (3) Hypokalemia: PLAN: 1. Chest pain -Admit to PCU for observation and cardiac monitoring -Echocardiogram ordered for a.m -CBC, BMP, lipid panel, TSH ordered for a.m. -Trend cardiac enzymes -Daily weights -Cardiac diet, n.p.o. at midnight -Encourage incentive spirometry -Oxygen per protocol -Chemical nuclear stress test ordered for a.m. 2. Acute kidney injury -BUN and creatinine elevated, 17 and 0.77, currently 24 and 1.33 -Normal saline 50 mL/h ordered -BMP ordered daily -Likely secondary to addition of metolazone to diuretic therapy 3. Hypokalemia -Potassium 2.3 -Likely secondary to addition of metolazone to diuretic therapy in addition to Lasix -Potassium chloride 40 mEq p.o. as well as potassium chloride IV 40 mEq ordered -BMP ordered daily -Hold Lasix and metolazone 4. Hypothyroidism -Continue levothyroxine -TSH ordered 5. Obstructive sleep apnea, CPAP dependent -CPAP ordered 6. Psoriatic arthritis -patient takes Celebrex, Taltz, leflunomide -We will continue leflunomide, Celebrex secondary to acute kidney injury 7. Depression -Continue paroxetine DVT prophylaxis-SCD This patient was seen by Aysha Hodge NP-C under the supervision of Dr. Martell. 33 minutes spent in clinical coordination of patient's plan of care. Documented by User: Dr. Rivas Martell MD 05/05/21 00:04 HPI - General General Date of Admission: 05/04/21 [facility] Medical History (Updated 05/04/21 @ 23:47 by Aysha Hodge NP-C) Anemia Asthma Back pain CPAP (continuous positive airway pressure) dependence Depression Edema GERD (gastroesophageal reflux disease) Heel spur Hiatal hernia History of diverticulitis Hx of echocardiogram Hx of psoriatic arthritis Hypothyroidism Migraine headache MVP (mitral valve prolapse) Narcolepsy Pain aggravated by walking Post-menopausal Restless legs Rheumatic fever Shortness of breath on exertion Wears glasses Home Medications acetaminophen 1,000 mg PO TID 04/12/19 [History Last Taken 10/26/20] cetirizine 10 mg PO DAILY 04/12/19 [History Last Taken 10/26/20] furosemide 40 mg PO DAILY 04/12/19 [History Last Taken 10/26/20] levothyroxine 100 mcg PO DAILY 04/12/19 [History Last Taken 01/26/21] pantoprazole 40 mg PO DAILY 04/12/19 [History Last Taken 01/26/21] paroxetine HCl 40 mg PO DAILY 04/12/19 [History Last Taken 10/26/20] ergocalciferol (vitamin D2) [Vitamin D2] 1,250 mcg PO ZAMORA 07/24/20 [History Last Taken 10/26/20] fluticasone propionate [Flovent] 2 puff INHALATION DAILY 07/24/20 [History Last Taken 10/26/20] ixekizumab [Taltz Autoinjector] 80 mg SUBCUT .Q28D 07/24/20 [History Last Taken 10/23/20] leflunomide 10 mg PO DAILY 07/24/20 [History Last Taken 10/26/20] pramipexole 1 mg PO TID 10/27/20 [History Last Taken 10/26/20] prednisone 30 mg PO DAILY 03/16/21 [History Last Taken Unknown] metolazone 2.5 mg PO DAILY 05/05/21 [History Last Taken Unknown] Allergy/AdvReac Type Severity Reaction Status Date / Time latex Allergy Rash Verified 05/04/21 20:05 meperidine [From Demerol] AdvReac Vomiting Verified 05/04/21 20:05 minocycline AdvReac Other Verified 05/04/21 20:05 morphine AdvReac Vomiting Verified 05/04/21 20:05 spironolactone AdvReac Vomiting Verified 05/04/21 20:05 Sulfa (Sulfonamide AdvReac Other Verified 05/04/21 20:05 Antibiotics) Surgical History History of History of carpal tunnel surgery of left wrist History of carpal tunnel surgery of right wrist History of Kirstin fundoplication History of tonsillectomy History of vocal cord polypectomy Hx laparoscopic cholecystectomy Hx of dilation and curettage Hx of hernia repair Hx of hysterectomy Hx of sinus surgery Status post epidural steroid injection Social History household members: spouse Smoking Status: Never smoker substance use type: does not use Results Lab / Micro Data Result Diagrams: 05/04/21 20:05 05/04/21 20:05 Charges/Coding Addendum Addendum: Patient was seen and examined independently. I agree with assessment and plan by KATIE PinedaC Patient is a 55-year-old female with a significant history of morbid obesity; prediabetes; psoriatic arthritis; obstructive sleep apnea on CPAP who presents emergency department with substernal chest pain that started on the same day of presentation. She described the chest pain as heaviness and tightness. The chest pain is nonradiating. Few minutes before presentation her chest pain worsened so she came to the emergency department. The chest pain worsens with walking and is improved with rest. Five days before presentation metolazone was added to her chronic Lasix because she had swelling of her bilateral hands and bilateral feet. She report that she had pneumonia about a month ago and ever since she has had back pain; and cough. She reports pain in her right ankle causing her to use a cane. Physical exam: General: Well-nourished, well-developed. Head: Normocephalic, atraumatic, no tenderness Eyes: PERRLA, EOMI ENT, no trauma, moist mucous membranes, no rhinorrhea Neck: Nontender, full range of motion, no spinal tenderness, deformities, step-off CVS: Regular rate and rhythm. S1-S2 present. No murmur, gallop or rub. Respiratory : clear to auscultation bilaterally, chest wall nontender, no wheezing Abdomen: Soft, nontender, nondistended, normal bowel sounds, no masses : Deferred Back: Nontender, no CVA tenderness, no midline spinal tenderness, deformities, step-offs Extremities: Nontender full range of motion, no trauma Skin: Normal color, no trauma, abrasions Neuro: Alert, oriented, cranial nerves II through XII grossly intact. Psychiatry: Normal mood. Normal affect. Not depressed. Not anxious. Assessment and Plan Chest Pain Place on a monitored bed at PCU Actual CXR image was visualized and independently interpreted. No acute cardiopulmonary process was noted. Actual EKG tracing was independently visualized. EKG tracing showed sinus tachycardia with PVCs; and LVH ASA 81 mg p.o. daily ordered SL NTG 0.4 mg prn as needed for chest pain ordered Morphine as needed for pain ordered We will check lipid panel. Initial high serum troponin was 16 (normal). Two- hour repeat was 20 (normal) Trend troponin Stat EKG as needed for chest pain Chemical stress test in the AM if the cardiac enzymes are negative. Patient unable to do a treadmill stress test secondary to right ankle pain with use of cane; and back pain. With reports of bilateral hands and bilateral feet swelling echocardiogram ordered. NOLAN CR 1.33. Baseline CR around 0.94. BUN of 24. BUN/creatinine 18. Likely from diuretic use. Gentle IV hydration of normal saline 50 mL/h. Avoid nephrotoxins. No NSAIDs. Trend BMP. Hypokalemia Presentation potassium was 2.3. Likely secondary to diuretic use. Replace. Trend BMP. Elevated blood pressure Her blood pressure is elevated. EKG showed left ventricular hypertrophy. Denies diagnosis of hypertension. Echocardiogram ordered. Discussed with patient to get a log of her blood pressure upon discharge. Morbid Obesity: BMI: 56.7. Complicates care. Lifestyle modification recommended. Obstructive sleep apnea: Home CPAP continued DVT prophylaxis: SCD ordered. Visit Charges OBSV E&M: 76174 Initial observation care L3
[2021-05-04 23:44] VITALS: BP 158/96; PULSE 102; RESP 22; TEMP 36.9; O2SAT 95
[2021-05-04 23:46] VITALS: BP 158/96; PULSE 102; RESP 16; TEMP 36.9; O2SAT 95
[2021-05-04 23:48] LABS: Magnesium 2.1 mg/dL (1.6-2.6)
[2021-05-05] VITALS (12 sets, daily range): BP systolic 122–148; BP diastolic 74–103; PULSE 85–98; RESP 16–18; TEMP 36.5–36.6; O2SAT 92–97; BMI 55.8
--- NOTE | 2021-05-05 00:20 | EKG12_ITS ---
Test Reason : CP Blood Pressure : / mmHG Vent. Rate : 105 BPM Atrial Rate : 105 BPM P-R Int : 140 ms QRS Dur : 100 ms QT Int : 344 ms P-R-T Axes : 051 -12 068 degrees QTc Int : 454 ms Sinus tachycardia with Premature supraventricular complexes Left ventricular hypertrophy Nonspecific ST and T wave abnormality Abnormal ECG Confirmed by GLORY MCKEON, NARESH ([id number]), editor newspaper LANETTE ANDREWS ([id number]) on 05/07/2021 8:33:27 AM Referred By: JEOVANNY Confirmed By:NARESH HOLDER MD
[2021-05-05] MEDS: 0.9% Normal Saline 1,000 ML 50 ML IV ×2 (00:32→21:27)
[2021-05-05] MEDS: Potassium Chloride Oral Tablet 20 MEQ 40 MEQ PO ×3 (00:42→16:47)
[2021-05-05] MEDS: Potassium Chloride 10mEq/100mL 10 MEQ/100 ML IV.SOLN. 50 MEQ IV BOLUS ×2 (00:42→02:25)
[2021-05-05] MEDS: Ondansetron 4 MG/2 ML Vial IV (01:04)
--- NOTE | 2021-05-05 01:34 | CPS ---
Talked to patient about CPAP. Patient wanting to wait and use own machine. She stated that she should have a family member that is able to bring it in use the following night.
[2021-05-05 02:48] LABS: Troponin-I HS 19 pg/mL (3.0-54.0)
[2021-05-05] MEDS: Potassium Chloride 10mEq/100mL 10 MEQ/100 ML IV.SOLN. 60 MEQ IV BOLUS ×2 (04:06→05:45)
[2021-05-05] MEDS: Pramipexole Di-HCl 1 MG Tablet PO ×3 (05:10→21:28)
[2021-05-05] MEDS: Aspirin 81 MG TAB.CHEW PO (05:10)
[2021-05-05] MEDS: Acetaminophen 500 MG Tablet 1000 MG PO ×3 (05:10→21:28)
[2021-05-05] MEDS: Levothyroxine 100 MCG Tablet PO (05:10)
--- NOTE | 2021-05-05 05:55 | EKG12_ITS ---
Test Reason : CP ADMIT Blood Pressure : / mmHG Vent. Rate : 095 BPM Atrial Rate : 095 BPM P-R Int : 144 ms QRS Dur : 096 ms QT Int : 372 ms P-R-T Axes : 039 -19 023 degrees QTc Int : 467 ms Normal sinus rhythm Left ventricular hypertrophy with repolarization abnormality Abnormal ECG Confirmed by GLORY MCKEON, NARESH ([id number]), mapping editor LANETTE ANDREWS ([id number]) on 05/06/2021 8:18:20 AM Referred By: EVARISTO Confirmed By:NARESH HOLDER MD
--- NOTE | 2021-05-05 05:55 | ECHOCS_ITS ---
Reason For Study: chest pain Procedure This was a 2D Doppler, Color Flow transthoracic echocardiogram. The study was technically difficult. Due to body habitus. Contrast injection was performed. Exam performed in department. Left Ventricle Normal LV size. Left ventricular systolic function is normal. The estimated ejection fraction is 65 %. Transmitral doppler flow suggestive of impaired relaxation of left ventricle. No regional wall motion abnormalities noted. Right Ventricle Normal RV size. Normal systolic function. Atria Normal left atrium. Normal right atrium. No doppler evidence for ASD. Mitral Valve There is no mitral annular calcification. Normal mitral valve. Trivial mitral valve insufficiency. Tricuspid Valve Normal tricuspid valve. Trivial tricuspid valve insufficiency. Unable to estimate RV systolic pressure/pulmonary artery pressure due to technically difficult study. Aortic Valve The aortic valve is not well visualized. Pulmonic Valve The pulmonic valve is not well visualized. Great Vessels Normal sized aortic root. Pericardium/Pleural No pericardial effusion. Medication Diluted definity 3.0ml given slow IV push to enhance endocardial definition. MMode/2D Measurements & Calculations LVIDd: 4.3 cm IVSd: 1.1 cm Ao root diam: 3.3 cm LVIDs: 2.7 cm LVPWd: 1.1 cm RVDd: 3.1 cm FS: 37.6 % LAV(MOD-bp): 46.9 ml LVAd ap4: 25.0 cm2 LVAd ap2: 27.5 cm2 LAV(MOD-bp) Indexed: 18.6 ml/m2 LVLd ap4: 7.5 cm LVLd ap2: 8.9 cm LAV(MOD-sp2): 48.4 ml EDV(MOD-sp4): 68.8 ml EDV(MOD-sp2): 70.9 ml LAV(MOD-sp4): 45.6 ml EDV(sp4-el): 71.1 ml EDV(sp2-el): 71.8 ml LVAs ap4: 16.2 cm2 LVAs ap2: 16.5 cm2 LVLs ap4: 6.9 cm LVLs ap2: 7.0 cm ESV(MOD-sp4): 31.4 ml ESV(MOD-sp2): 32.2 ml ESV(sp4-el): 32.0 ml ESV(sp2-el): 32.8 ml EF(MOD-sp4): 54.4 % EF(MOD-sp2): 54.7 % EF(sp4-el): 54.9 % SV(MOD-sp4): 37.5 ml SV(MOD-sp2): 38.8 ml SV(sp4-el): 39.1 ml LA A4 area: 17.1 cm2 LA dimension(2D): 4.0 cm Time Measurements MV dec time: 0.20 sec Doppler Measurements & Calculations MV E max xander: 58.7 cm/sec Lat Peak E' Xander: 6.3 cm/sec Med Peak E' Xander: 7.2 cm/sec MV A max xander: 70.0 cm/sec E/E' lat: 9.3 E/E' med: 8.1 MV E/A: 0.84 Ao V2 max: 130.0 cm/sec LV V1 max: 94.4 cm/sec PA V2 max: 97.2 cm/sec Ao max P.8 mmHg LV V1 max P.6 mmHg ECHO/Echo Complete W/ Contrast Interpretation Summary The study was technically difficult. Contrast injection was performed. Left ventricular systolic function is normal. The estimated ejection fraction is 65 %. Trivial mitral valve insufficiency. Trivial tricuspid valve insufficiency. Unable to estimate RV systolic pressure/pulmonary artery pressure due to techni amanda difficult study. Transmitral doppler flow suggestive of impaired relaxation of left ventricle Ordering Physician: Aysha Hodge Referring Physician: Maddie Mccray Performed By: Neeru Green RDCS, RVT
[2021-05-05 06:08] LABS: Absolute Lymphocyte Count 2.42 X10^3/uL (0.83-4.51); Absolute Neutrophil Count 5.9 X10^3/uL (2.0-7.7); Basophil# 0.06 X10^3/uL; Basophil% 0.6 % (0-1); Eosinophil# 0.18 X10^3/uL; Eosinophils% 1.9 % (0-5); Hematocrit 41.2 % (37-47); Hemoglobin 14.1 g/dL (12.0-15.0); Lymphocyte # 2.42 X10^3/ul (0.83-4.51); Lymphocyte % 25.7 % (19-41); Mean Corp Hgb Conc 34.2 g/dL (32-36); Mean Corpuscular Volume 96.5 fL (81-99); Mean Platelet Vol. 8.9 fl (6.2-12.0); Monocyte# 0.79 X10^3/uL; Monocyte% 8.4 % (0-10); NRBC Flagged by Analyzer 0 % (0-5); Neutrophil # 5.92 X10^3/uL (2.7-7.7); Neutrophil % 63.1 % (47-70); Platelet Count 337 K/mm3 (150-450); RBC Distribution Width CV 13.2 % (11.6-14.6); Red Blood Count 4.27 M/mm3 (4.2-5.4); White Blood Count 9.4 K/mm3 (4.4-11.0)
[2021-05-05 07:16] LABS: Anion Gap 11 (5-15); BUN 24 mg/dL (7-18); BUN/Creat Ratio 26.3 RATIO (10-20); Calcium,Total 9.4 mg/dL (8.5-10.1); Chloride 87 mmol/L (98-107); Cholesterol 311 mg/dL (200); Creatinine, Serum 0.91 mg/dL (0.55-1.02); EST Glomerular Filtration Rate 68 mL/min (>60); Est Glom Filt Rate - Afr Amer 82 mL/min (>60); Estimated Creatinine Clearance 65.39 ml/min; Glucose 137 mg/dL (74-106); High Density Lipoprotein 63 mg/dL; Potassium 2.7 mmol/L (3.5-5.1); Sodium Level 133 mmol/L (136-145); Triglycerides 419 mg/dL
[2021-05-05 08:14] LABS: Potassium 2.7 mmol/L (3.5-5.1)
[2021-05-05] MEDS: predniSONE 10 MG Tablet PO (08:28)
[2021-05-05] MEDS: Loratadine 10 MG Tablet PO (08:28)
[2021-05-05] MEDS: Pantoprazole Sodium 40 MG Tablet PO (08:28)
[2021-05-05] MEDS: Leflunomide 10 MG TABLET PO (08:29)
[2021-05-05] MEDS: Paroxetine 20 MG Tablet 40 MG PO (08:29)
[2021-05-05] MEDS: 0.9% Saline Lock 10 ML Syringe IV (11:01)
--- NOTE | 2021-05-05 12:06 | CHAPLAIN ---
Type of Pastoral Visit _x__ Initial Visit ___ Follow-up Visit ___ On-call Visit ___ General Patient Visit ___ Spiritual Assessment ___ Family Conference ___ Bereavement ___ Rapid Response ___ Code Blue ___ Other (describe below) Pastoral Care Referral From _x__ Patient ___ Family ___ Nurse ___ Physician ___ Cdl Service Technician ___ Marker Delivery ___ Other (describe below) Sacrament/Intervention _x__ Active listening ___ Anointing ___ Judaism ___ Bereavement ___ Communion ___ Krupa exploration ___ _x__ Life review _x__ Prayer ___ Reconciliation ___ Sacrament of Sick _x__ Supportive presence ___ Wedding ___ Other (describe below) Pastoral Comments
--- NOTE | 2021-05-05 13:44 | STRESSREP ---
Stress Test Report Date: 05-05-2021 Procedure: Pharmacologic stress nuclear imaging study Indications: Chest pain; shortness of breath; MVP; anemia; GERD; diverticulitis; AMPARO Consent: Per the patient Procedure: The patient underwent pharmacologic (Regadenoson 0.4mg ) evaluation with a peak heart rate of 107 beats per minute (64%predicted maximal heart rate) and a peak blood pressure of 122/88 mmHg. The baseline ECG demonstrated sinus rhythm. The peak pharmacologic ECG demonstrated no obvious ECG changes. There was an isolated PAC during recovery. There was no complaint of chest discomfort during pharmacologic infusion or recovery. The examination was discontinued secondary to completion of protocol. Impression: 1. Pharmacologic (Regadenoson) evaluation 2. Peak pharmacologic ECG with no obvious ECG changes. 3. There was an isolated PAC during recovery. 4. Nuclear images pending Myocardial perfusion imaging study: Technique: The patient was injected with 14.8 millicuries of technetium 99m Cardiolite and subsequently rest SPECT Cardiolite nuclear imaging was obtained in the horizontal long, vertical long, and short axis views. The patient underwent pharmacologic (Regadenoson) evaluation with a peak heart rate of 107 beats per minute (64% percent predicted maximal heart rate) and a peak blood pressure of 122/88 mmHg. The patient was injected with 44.3 millicuries of technetium 99m Cardiolite and subsequently stress SPECT Cardiolite nuclear imaging was obtained in the horizontal long, vertical long, and short axis views. A gated Cardiolite study at peak stress was obtained. Interpretation: Rest and stress SPECT Cardiolite nuclear imaging status post realignment, normalization, and attenuation correction demonstrate relative uniform tracer uptake and myocardial perfusion appearing within normal limits. There is end systolic thickening and brightening. The gated Cardiolite study demonstrates myocardial thickening and inward wall motion. The reported LVEF is 70%. Impression: 1. Rest and stress SPECT Cardiolite nuclear imaging demonstrate relative uniform tracer uptake and myocardial perfusion appearing within normal limits. 2. The gated Cardiolite study reports an LVEF of 70%. This note was generated with [employer] software. It may contain incorrect words, spelling, and punctuation that were not noted in checking the note before signing.
[2021-05-05 14:28] LABS: Potassium 2.4 mmol/L (3.5-5.1)
--- NOTE | 2021-05-05 14:30 | PN.HOSP_ITS ---
Subjective Subjective Patient is a 55-year-old lady with past medical history single for psoriatic arthritis chest pain. Admitted to monitored bed where patient is currently being managed. Patient was also found to have severe hypokalemia. Objective Data Objective Data Vital Signs: Vital Signs Temp Pulse Resp BP Pulse Ox 97.9 F 96 16 127/79 H 94 05/05/21 11:00 05/05/21 11:00 05/05/21 11:00 05/05/21 11:00 05/05/21 11:00 Oxygen Delivery Method Room Air Weight: 157 kg Body Mass Index (BMI) 55.8 Intake & Output: Intake and Output for Last 24 Hours 05/03/21 05/04/21 05/05/21 23:59 23:59 23:59 Intake Total 1294.33 / 1294.33 Balance 1294.33 / 1294.33 Lab / Micro Data Result Diagrams: 05/05/21 05:11 05/05/21 14:07 Labs: Laboratory Results - last 24 hr 05/04/21 20:05: WBC 9.8, RBC 4.45, Hgb 14.9, Hct 43.5, MCV 97.8, MCH 33.5 H, MCHC 34.3, RDW Std Deviation 46.7 H, RDW Coeff of Peyman 13.1, Plt Count 350, MPV 9.0, Immature Gran % (Auto) 0.400, Neut % (Auto) 66.5, Lymph % (Auto) 24.2, Bullock % (Auto) 7.2, Eos % (Auto) 1.2, Baso % (Auto) 0.5, Absolute Neuts (auto) 6.5, Absolute Lymphs (auto) 2.36, Nucleated RBC % 0 05/04/21 20:05: Sodium 134 L, Potassium 2.3 L*, Chloride 87 L, Carbon Dioxide 34.0 H, Anion Gap 13, BUN 24 H, Creatinine 1.33 H, Estim Creat Clear Calc 44.74, Est GFR (MDRD) Af Amer 53 L, Est GFR (MDRD) Non-Af 44 L, BUN/Creatinine Ratio 18.0, Glucose 189 H, Calcium 9.9, Troponin I High Sens 16 05/04/21 21:50: Troponin I High Sens 20 05/04/21 21:50: Magnesium 2.1 05/05/21 02:17: Troponin I High Sens 19 05/05/21 05:11: WBC 9.4, RBC 4.27, Hgb 14.1, Hct 41.2, MCV 96.5, MCH 33.0 H, MCHC 34.2, RDW Std Deviation 47.0 H, RDW Coeff of Peyman 13.2, Plt Count 337, MPV 8.9, Immature Gran % (Auto) 0.300, Neut % (Auto) 63.1, Lymph % (Auto) 25.7, Bullock % (Auto) 8.4, Eos % (Auto) 1.9, Baso % (Auto) 0.6, Absolute Neuts (auto) 5.9, Absolute Lymphs (auto) 2.42, Nucleated RBC % 0 05/05/21 05:11: Sodium 133 L, Potassium 2.7 L*, Chloride 87 L, Carbon Dioxide 35.0 H, Anion Gap 11, BUN 24 H, Creatinine 0.91, Estim Creat Clear Calc 65.39, Est GFR (MDRD) Af Amer 82, Est GFR (MDRD) Non-Af 68, BUN/Creatinine Ratio 26.3 H , Glucose 137 H, Calcium 9.4, Triglycerides 419 H, Cholesterol 311 H, LDL Cholesterol TNP, VLDL Cholesterol TNP, HDL Cholesterol 63, TSH 1.00 05/05/21 07:46: Potassium 2.7 L* 05/05/21 14:07: Potassium 2.4 L* Radiography Diagnostic Testing: Radiology Impression Chest X-Ray 05/04/21 20:20 IMPRESSION: There are no acute findings. Electronically Signed: Honorio Raymundo MD at 20:43 EST Reading Location ID and State: [facility] / [place] , Service support , Echocardiogram 05/05/21 05:55 Interpretation Summary The study was technically difficult. Contrast injection was performed. Left ventricular systolic function is normal. The estimated ejection fraction is 65 %. Trivial mitral valve insufficiency. Trivial tricuspid valve insufficiency. Unable to estimate RV systolic pressure/pulmonary artery pressure due to technically difficult study. Transmitral doppler flow suggestive of impaired relaxation of left ventricle Ordering Physician: Aysha Hodge Referring Physician: Maddie Mccray Performed By: Neeru Green, REGINO, RVT Physical Exam Narrative GENERAL: cooperative HEENT: Atraumatic; EYES; Anicteric, Normal Conjunctiva NECK; supple, normal thyroid, RESPIRATORY: Diminished to auscultation CARDIOVASCULAR: Regular S1 S2, GI: soft, normoactive bowel sounds, : No Renal angle tenderness; EXTREMITIES: No edema, no clubbing, MUSCULOSKELETAL: no muscle wasting NEURO: Awake; no lateralizing signs. SKIN: No Rash PSYCH; Flat affect Assessment & Plan Assessment/Plan (1) Chest pressure: (2) Acute kidney injury: (3) Hypokalemia: PLAN: Patient is a 55-year-old lady with past medical history single for psoriatic arthritis chest pain. Admitted to monitored bed where patient is currently being managed. Patient was also found to have severe hypokalemia. 1. Chest pain ?Admitted to monitored bed [place] has been ruled out with serial cardiac enzymes plan is for patient to undergo a nuclear stress test once [place] is ruled out 2. Severe hypokalemia ?Secondary to patient being on diuretics. Potassium was replaced repeat potassium was still low additional potassium given. Subsequent serial monitoring of potassium levels ordered 3. Acute kidney injury ?Attributed to patient diuretics held 5. Hypothyroidism - Patient is on levothyroxine home dose continued 6. Psoriatic arthritis Did continue patient home medications leflunomidea nd Taltz - 7. Obstructive sleep apnea ?CPAP at night 8. Class III obesity with BMI 55.9 ?Weight loss advised 9. DVT prophylaxis ?Lovenox 10. Depression with anxiety ?Patient is on paroxetine did consult Charges/Coding Visit Charges OBSV E&M: 06886 Subsequent observation care L3
[2021-05-05] MEDS: Potassium Chloride 10mEq/100mL 10 MEQ/100 ML IV.SOLN. 100 MEQ IV BOLUS ×4 (14:45→18:03)
[2021-05-05 15:00] LABS: Phosphorus 2.7 mg/dL (2.5-4.9)
[2021-05-05 15:02] LABS: Magnesium 1.9 mg/dL (1.6-2.6)
[2021-05-06] VITALS (10 sets, daily range): BP systolic 118–131; BP diastolic 65–90; PULSE 60–98; RESP 16–18; TEMP 36.4–36.8; O2SAT 93–97
[2021-05-06] MEDS: Acetaminophen 500 MG Tablet 1000 MG PO ×3 (05:47→21:58)
[2021-05-06] MEDS: Pramipexole Di-HCl 1 MG Tablet PO ×3 (05:47→21:58)
[2021-05-06] MEDS: Levothyroxine 100 MCG Tablet PO (05:47)
[2021-05-06 06:58] LABS: Anion Gap 9 (5-15); BUN 17 mg/dL (7-18); BUN/Creat Ratio 19.2 RATIO (10-20); Calcium,Total 9.1 mg/dL (8.5-10.1); Chloride 91 mmol/L (98-107); Creatinine, Serum 0.88 mg/dL (0.55-1.02); EST Glomerular Filtration Rate 70 mL/min (>60); Est Glom Filt Rate - Afr Amer 85 mL/min (>60); Estimated Creatinine Clearance 67.62 ml/min; Glucose 161 mg/dL (74-106); Magnesium 2.2 mg/dL (1.6-2.6); Potassium 2.5 mmol/L (3.5-5.1); Sodium Level 133 mmol/L (136-145)
--- NOTE | 2021-05-06 07:50 | PN.HOSP_ITS ---
Subjective Subjective Patient seen underwent a nuclear stress test the day prior which was negative for stress-induced ischemia. Patient still remains hypokalemic despite undergoing aggressive replacement Objective Data Objective Data Vital Signs: Vital Signs Temp Pulse Resp BP Pulse Ox 98 F 86 16 118/84 H 95 05/06/21 04:00 05/06/21 07:12 05/06/21 04:00 05/06/21 04:00 05/06/21 04:00 Oxygen Delivery Method Room Air Weight: 157 kg Body Mass Index (BMI) 55.8 Intake & Output: Intake and Output for Last 24 Hours 05/04/21 05/05/21 05/06/21 23:59 23:59 23:59 Intake Total 2526.83 / 2646.83 120 / 120 Balance 2526.83 / 2646.83 120 / 120 Lab / Micro Data Result Diagrams: 05/05/21 05:11 05/06/21 10:24 Labs: Laboratory Results - last 24 hr 05/05/21 07:46: Potassium 2.7 L* 05/05/21 14:07: Potassium 2.4 L* 05/05/21 14:07: Magnesium 1.9 05/05/21 14:07: Phosphorus 2.7 05/06/21 05:40: Sodium 133 L, Potassium 2.5 L*, Chloride 91 L, Carbon Dioxide 33.0 H, Anion Gap 9, BUN 17, Creatinine 0.88, Estim Creat Clear Calc 67.62, Est GFR (MDRD) Af Amer 85, Est GFR (MDRD) Non-Af 70, BUN/Creatinine Ratio 19.2, Glucose 161 H, Calcium 9.1, Magnesium 2.2 Radiography Diagnostic Testing: Radiology Impression Echocardiogram 05/05/21 05:55 Interpretation Summary The study was technically difficult. Contrast injection was performed. Left ventricular systolic function is normal. The estimated ejection fraction is 65 %. Trivial mitral valve insufficiency. Trivial tricuspid valve insufficiency. Unable to estimate RV systolic pressure/pulmonary artery pressure due to technically difficult study. Transmitral doppler flow suggestive of impaired relaxation of left ventricle Ordering Physician: Aysha Hodge Referring Physician: Maddie Mccray Performed By: Neeru Green, RDCS, RVT Physical Exam Narrative GENERAL: cooperative HEENT: Atraumatic; EYES; Anicteric, Normal Conjunctiva NECK; supple, normal thyroid, RESPIRATORY: Diminished to auscultation CARDIOVASCULAR: Regular S1 S2, GI: soft, normoactive bowel sounds, : No Renal angle tenderness; EXTREMITIES: No edema, no clubbing, MUSCULOSKELETAL: no muscle wasting NEURO: Awake; no lateralizing signs. SKIN: No Rash PSYCH; Flat affect Assessment & Plan Assessment/Plan (1) Chest pressure: (2) Acute kidney injury: (3) Hypokalemia: PLAN: Patient is a 55-year-old lady with past medical history single for psoriatic arthritis chest pain. Admitted to monitored bed where patient is currently being managed. Patient was also found to have severe hypokalemia. 1. Chest pain ?Admitted to monitored bed [place] has been ruled out with serial cardiac enzymes plan is for patient to undergo a nuclear stress test once [place] is ruled out ?05/06/2021; patient underwent a nuclear stress test which was negative for stress-induced ischemia 2. Severe hypokalemia ?Secondary to patient being on diuretics. Potassium was replaced repeat potassium was still low additional potassium given. Subsequent serial monitoring of potassium levels ordered ?05/06/2021; patient remains hypokalemic despite aggressive correction. Serial potassium levels ordered every 4 hours with plans to replace as needed 3. Acute kidney injury ?Attributed to patient diuretics held 5. Hypothyroidism - Patient is on levothyroxine home dose continued 6. Psoriatic arthritis Did continue patient home medications leflunomidea nd Taltz - 7. Obstructive sleep apnea ?CPAP at night 8. Class III obesity with BMI 55.9 ?Weight loss advised 9. DVT prophylaxis ?Lovenox 10. Depression with anxiety ?Patient is on paroxetine did consult Charges/Coding Visit Charges Inpatient E&M: 87792 Subs Hosp L2
[2021-05-06] MEDS: predniSONE 10 MG Tablet PO (07:56)
[2021-05-06] MEDS: Loratadine 10 MG Tablet PO (07:56)
[2021-05-06] MEDS: Potassium Chloride Oral Tablet 20 MEQ 40 MEQ PO ×3 (07:56→22:51)
[2021-05-06] MEDS: Aspirin 81 MG TAB.CHEW PO (07:56)
[2021-05-06] MEDS: Leflunomide 10 MG TABLET PO (07:57)
[2021-05-06] MEDS: Pantoprazole Sodium 40 MG Tablet PO (07:57)
[2021-05-06] MEDS: Paroxetine 20 MG Tablet 40 MG PO (07:57)
[2021-05-06] MEDS: Potassium Chloride 10mEq/100mL 10 MEQ/100 ML IV.SOLN. 100 MEQ IV BOLUS ×8 (08:17→17:30)
[2021-05-06 11:06] LABS: Anion Gap 6 (5-15); BUN 17 mg/dL (7-18); Chloride 92 mmol/L (98-107); Creatinine, Serum 1.06 mg/dL (0.55-1.02); EST Glomerular Filtration Rate 57 mL/min (>60); Est Glom Filt Rate - Afr Amer 69 mL/min (>60); Estimated Creatinine Clearance 56.14 ml/min; Glucose 184 mg/dL (74-106); Potassium 2.9 mmol/L (3.5-5.1); Sodium Level 132 mmol/L (136-145)
--- NOTE | 2021-05-06 11:25 | CASEMGMT ---
SAMEERA ARRIAZA Face to Face with patient for initial transition planning/care coordination assessment. RN CM introduced self and role at [facility]. Patient sitting in chair, alert and oriented. Patient willing to participate in assessment and is able to answer all questions appropriately. Care providers, pharmacy, and demographics verified. Patient wishes to discharge home, denies need for home health at this time. Patient states she has no further needs or concerns at this time. CM to follow for discharge planning needs that may arise. PCP: Shazia Specialists: RA Le; gabe Ge; [facility] Preferred Pharmacy: [facility] Insurance: [place] PPO Prescription Benefit: yes Living Will/HPOA: no, but patient interested in completing. SW notified LNOK: , daughter Living Arrangements: Patient lives with and family in a 2 story home. Patient states she is independent at home and able ambulate stairs. Transportation: self, , daughter DME/HHC: Patient states she has shower chair, raised toilet, cane, walker, rollator, lift chair, cpap, and nebulizer at home. Patient denies previous HHC or SNF Disposition Plan: Patient to discharge home with family support and follow-up plans in place. Nica CALDERON, RN, CM
[2021-05-06 14:29] LABS: Potassium 3.4 mmol/L (3.5-5.1)
[2021-05-06] MEDS: 0.9% Normal Saline 1,000 ML 50 ML IV (16:18)
[2021-05-06 18:43] LABS: Potassium 3.3 mmol/L (3.5-5.1)
[2021-05-06 22:27] LABS: Potassium 3.1 mmol/L (3.5-5.1)
[2021-05-07] VITALS (7 sets, daily range): BP systolic 123–134; BP diastolic 54–79; PULSE 84–90; RESP 16–20; TEMP 36.4–37.1; O2SAT 95–97
[2021-05-07] MEDS: Acetaminophen 500 MG Tablet 1000 MG PO ×2 (05:00→13:13)
[2021-05-07] MEDS: Levothyroxine 100 MCG Tablet PO (05:00)
[2021-05-07] MEDS: Pramipexole Di-HCl 1 MG Tablet PO ×2 (05:00→13:13)
[2021-05-07 06:14] LABS: Anion Gap 7 (5-15); BUN 18 mg/dL (7-18); BUN/Creat Ratio 20.2 RATIO (10-20); Calcium,Total 9.2 mg/dL (8.5-10.1); Chloride 97 mmol/L (98-107); Creatinine, Serum 0.89 mg/dL (0.55-1.02); EST Glomerular Filtration Rate 70 mL/min (>60); Est Glom Filt Rate - Afr Amer 84 mL/min (>60); Estimated Creatinine Clearance 66.86 ml/min; Glucose 123 mg/dL (74-106); Potassium 3.2 mmol/L (3.5-5.1); Sodium Level 135 mmol/L (136-145)
--- NOTE | 2021-05-07 07:41 | PCM.PN.HOSP ---
Subjective Subjective Patient seen. Potassium still low at 3.2 additional replacement given repeat labs ordered for monitoring Objective Data Objective Data Vital Signs: Vital Signs Temp Pulse Resp BP Pulse Ox 98.1 F 86 16 123/79 H 95 05/07/21 03:32 05/07/21 03:32 05/07/21 03:32 05/07/21 03:32 05/07/21 03:32 Oxygen Delivery Method Room Air Weight: 157 kg Body Mass Index (BMI) 55.8 Intake & Output: Intake and Output for Last 24 Hours 05/05/21 05/06/21 05/07/21 23:59 23:59 23:59 Intake Total 2526.83 / 2646.83 2547.5 / 2547.5 240 / 240 Balance 2526.83 / 2646.83 2547.5 / 2547.5 240 / 240 Lab / Micro Data Result Diagrams: 05/05/21 05:11 05/07/21 04:44 Labs: Laboratory Results - last 24 hr 05/06/21 10:24: Sodium 132 L, Potassium 2.9 L, Chloride 92 L, Carbon Dioxide 34.0 H, Anion Gap 6, BUN 17, Creatinine 1.06 H, Estim Creat Clear Calc 56.14, Est GFR (MDRD) Af Amer 69, Est GFR (MDRD) Non-Af 57 L, BUN/Creatinine Ratio 16.0, Glucose 184 H, Calcium 9.0 05/06/21 14:06: Potassium 3.4 L 05/06/21 18:19: Potassium 3.3 L 05/06/21 21:54: Potassium 3.1 L 05/07/21 04:44: Sodium 135 L, Potassium 3.2 L, Chloride 97 L, Carbon Dioxide 31.0, Anion Gap 7, BUN 18, Creatinine 0.89, Estim Creat Clear Calc 66.86, Est GFR (MDRD) Af Amer 84, Est GFR (MDRD) Non-Af 70, BUN/Creatinine Ratio 20.2 H, Glucose 123 H, Calcium 9.2 Physical Exam Narrative GENERAL: cooperative HEENT: Atraumatic; EYES; Anicteric, Normal Conjunctiva NECK; supple, normal thyroid, RESPIRATORY: Diminished to auscultation CARDIOVASCULAR: Regular S1 S2, GI: soft, normoactive bowel sounds, : No Renal angle tenderness; EXTREMITIES: No edema, no clubbing, MUSCULOSKELETAL: no muscle wasting NEURO: Awake; no lateralizing signs. SKIN: No Rash PSYCH; Flat affect Assessment & Plan Assessment/Plan (1) Chest pressure: (2) Acute kidney injury: (3) Hypokalemia: PLAN: Patient is a 55-year-old lady with past medical history single for psoriatic arthritis chest pain. Admitted to monitored bed where patient is currently being managed. Patient was also found to have severe hypokalemia. 1. Chest pain ?Admitted to monitored bed [place] has been ruled out with serial cardiac enzymes plan is for patient to undergo a nuclear stress test once [place] is ruled out ?05/06/2021; patient underwent a nuclear stress test which was negative for stress-induced ischemia 2. Severe hypokalemia ?Secondary to patient being on diuretics. Potassium was replaced repeat potassium was still low additional potassium given. Subsequent serial monitoring of potassium levels ordered ?05/06/2021; patient remains hypokalemic despite aggressive correction. Serial potassium levels ordered every 4 hours with plans to replace as needed -05/07/2021; patient seen potassium up to 3.2 additional replacement given repeat labs ordered for 1 PM 3. Acute kidney injury ?Attributed to patient diuretics held 5. Hypothyroidism - Patient is on levothyroxine home dose continued 6. Psoriatic arthritis Did continue patient home medications leflunomide and Taltz - 7. Obstructive sleep apnea ?CPAP at night 8. Class III obesity with BMI 55.9 ?Weight loss advised 9. DVT prophylaxis ?Lovenox 10. Depression with anxiety ?Patient is on paroxetine did consult Charges/Coding Visit Charges Inpatient E&M: 33548 Subs Hosp L2
[2021-05-07] MEDS: Potassium Chloride Oral Tablet 20 MEQ 40 MEQ PO ×2 (08:13→08:15)
[2021-05-07] MEDS: predniSONE 10 MG Tablet PO (08:13)
[2021-05-07] MEDS: Paroxetine 20 MG Tablet 40 MG PO (08:13)
[2021-05-07] MEDS: Loratadine 10 MG Tablet PO (08:13)
[2021-05-07] MEDS: Pantoprazole Sodium 40 MG Tablet PO (08:13)
[2021-05-07] MEDS: Aspirin 81 MG TAB.CHEW PO (08:13)
[2021-05-07] MEDS: Leflunomide 10 MG TABLET PO (08:14)
--- NOTE | 2021-05-07 10:16 | CASEMGMT ---
Social Work SW met with pt and introduced self and role of SW. Pt requesting to complete Health Care POA and Living Will. SW assisted with completion of advance directives and pt named her Arian Culver as HCPOA. Copy placed on pt chart and original given to pt. CHIN Hsieh
[2021-05-07] MEDS: 0.9% Normal Saline 1,000 ML 50 ML IV (10:30)
[2021-05-07 12:15] LABS: Potassium 3.7 mmol/L (3.5-5.1)
--- NOTE | 2021-05-07 12:25 | DS.PCM_ITS ---
Providers Date of Admission: 05/04/21 Primary Care Physician: Dr. Maddie Mccray DO Reason For Visit: CHEST PAIN Diagnosis Discharge Diagnosis (1) Chest pressure: Status: Acute Code(s): R07.89 - Other chest pain (2) Acute kidney injury: Status: Acute Code(s): N17.9 - Acute kidney failure, unspecified (3) Hypokalemia: Status: Acute Code(s): E87.6 - Hypokalemia Medications at Discharge Home Medications acetaminophen 1,000 mg PO TID 04/12/19 cetirizine 10 mg PO DAILY 04/12/19 levothyroxine 100 mcg PO DAILY 04/12/19 pantoprazole 40 mg PO DAILY 04/12/19 paroxetine HCl 40 mg PO DAILY 04/12/19 Taltz Autoinjector 80 mg SUBCUT .Q28D 07/24/20 ergocalciferol (vitamin D2) [Vitamin D2] 1,250 mcg PO ZMAORA 07/24/20 fluticasone propionate 2 puff INHALATION DAILY 07/24/20 leflunomide 10 mg PO DAILY 07/24/20 pramipexole 1 mg PO TID 10/27/20 potassium chloride 20 meq PO BIDCM #0 cap 05/07/21 prednisone 10 mg PO DAILYCM #0 tab 05/07/21 Hospital Course Summary of Care Provided Minutes Spent on Discharge: 40 Hospital Course: Patient is a 55-year-old lady with past medical history single for psoriatic arthritis chest pain. Admitted to monitored bed where patient is currently being managed. Patient was also found to have severe hypokalemia. 1. Chest pain ?Admitted to monitored bed [place] has been ruled out with serial cardiac enzymes plan is for patient to undergo a nuclear stress test once [place] is ruled out ?05/06/2021; patient underwent a nuclear stress test which was negative for stress-induced ischemia 2. Severe hypokalemia ?Secondary to patient being on diuretics. Potassium was replaced repeat potassium was still low additional potassium given. Subsequent serial monitoring of potassium levels ordered ?05/06/2021; patient remains hypokalemic despite aggressive correction. Serial potassium levels ordered every 4 hours with plans to replace as needed -05/07/2021; patient seen potassium up to 3.2 additional replacement given repeat labs ordered for 1 PM 3. Acute kidney injury ?Attributed to patient diuretics held 5. Hypothyroidism - Patient is on levothyroxine home dose continued 6. Psoriatic arthritis Did continue patient home medications leflunomide and Taltz - 7. Obstructive sleep apnea ?CPAP at night 8. Class III obesity with BMI 55.9 ?Weight loss advised 9. DVT prophylaxis ?Lovenox 10. Depression with anxiety ?Patient is on paroxetine did continue Physical Exam Narrative GENERAL: cooperative HEENT: Atraumatic; EYES; Anicteric, Normal Conjunctiva NECK; supple, normal thyroid, RESPIRATORY: Diminished to auscultation CARDIOVASCULAR: Regular S1 S2, GI: soft, normoactive bowel sounds, : No Renal angle tenderness; EXTREMITIES: No edema, no clubbing, MUSCULOSKELETAL: no muscle wasting NEURO: Awake; no lateralizing signs. SKIN: No Rash PSYCH; Flat affect Weight / BMI Weight Weight: 157 kg Body Mass Index (BMI) 55.8 ABG / Lab / Microbiology Data Result Diagrams: 05/05/21 05:11 05/07/21 11:35 Laboratory: Laboratory Results - last 24 hr 05/06/21 14:06: Potassium 3.4 L 05/06/21 18:19: Potassium 3.3 L 05/06/21 21:54: Potassium 3.1 L 05/07/21 04:44: Sodium 135 L, Potassium 3.2 L, Chloride 97 L, Carbon Dioxide 31.0, Anion Gap 7, BUN 18, Creatinine 0.89, Estim Creat Clear Calc 66.86, Est GFR (MDRD) Af Amer 84, Est GFR (MDRD) Non-Af 70, BUN/Creatinine Ratio 20.2 H, Glucose 123 H, Calcium 9.2 05/07/21 11:35: Potassium 3.7 D/C Instructions Discharge Diet: No restrictions Discharge Activity: Return to Normal Activity Call your doctor if you observe: Fever of 101 or Higher, Shortness of breath, Fainting spells and Chest pain Meaningful Use Info Meaningful Use Diagnoses (Choose all that apply): None applicable Discharge Plan Admission Admit Date/Time: 05/04/21 23:26 Attending Provider: Sae Wilson Primary Care Provider: Maddie Mccray Discharge Orders/Prescriptions Prescriptions: New prednisone 10 mg Tablet 10 mg PO DAILYCM Qty: 0 RF: 0 Continued acetaminophen 500 MG tablet 1,000 mg PO TID RF: 0 levothyroxine 100 MCG tablet 100 mcg PO DAILY RF: 0 pantoprazole 40 MG tablet 40 mg PO DAILY RF: 0 paroxetine HCl 40 MG tablet 40 mg PO DAILY RF: 0 cetirizine 10 MG capsule 10 mg PO DAILY RF: 0 leflunomide 10 mg Tablet 10 mg PO DAILY RF: 0 fluticasone propionate 220 mcg/actuation Hfa Aerosol Inhaler 2 puff INHALATION DAILY RF: 0 ergocalciferol (vitamin D2) [Vitamin D2] 1,250 mcg (50,000 unit) Capsule 1,250 mcg PO ZAMORA RF: 0 Taltz Autoinjector 80 mg/mL Auto-Injector 80 mg SUBCUT .Q28D RF: 0 pramipexole 1 mg Tablet 1 mg PO TID RF: 0 Changed potassium chloride 10 mEq Capsule, Extended Release 20 meq PO BIDCM Qty: 0 RF: 0 Discontinued furosemide 40 MG tablet 40 mg PO DAILY RF: 0 prednisone 50 mg tablet 10 mg PO DAILY RF: 0 metolazone 2.5 mg tablet 2.5 mg PO DAILY RF: 0 Referrals / Follow Up: Maddie Mccray DO [Primary Care Provider] - Within 2 Weeks Cheko Jensen DO [STAFF PHYSICIAN] - 05/11/21 (For repeat BMP) Disposition Disposition (needs filled in before D/C Order can be placed): Home, Self Care Charges/Coding Visit Charges Inpatient E&M: [id number] [facility]
== END 2021-05-07 14:38 | disposition home or self-care (01) | DRG 641 ==
LOC: ED 22:59 → PCU 23:36
PROVIDERS: Nurse Practitioner Family; Admitting Provider Hospitalist; Emergency Provider Emergency Medicine; PCP Family Medicine; Visit Provider Internal Medicine
DX: E87.6 Hypokalemia (principal); N17.9 Acute kidney failure, unspecified; Z68.43 Body mass index [BMI] 50.0-59.9, adult; L40.50 Arthropathic psoriasis, unspecified; E66.01 Morbid (severe) obesity due to excess calories; E03.9 Hypothyroidism, unspecified; G47.33 Obstructive sleep apnea (adult) (pediatric); I10 Essential (primary) hypertension; I34.1 Nonrheumatic mitral (valve) prolapse; J45.909 Unspecified asthma, uncomplicated; F41.8 Other specified anxiety disorders; R73.03 Prediabetes; R07.89 Other chest pain; Z79.899 Other long term (current) drug therapy; I49.3 Ventricular premature depolarization; Z87.19 Personal history of other diseases of the digestive system; Z87.01 Personal history of pneumonia (recurrent)
CPT/HCPCS: 36415; 71045; 78452; 80048; 80061; 83735; 84100; 84132; 84443; 84484; 85025; 93005; 93017; 93306; 99251; 99285; A9500; J7030; Q9957; A4216; C8929; G0463; J2405; J2785

== ENCOUNTER 2021-05-19 11:59 | Emergency (ER) | payer OTHER, SELFPAY ==
[2021-05-19 12:00] VITALS: BP 163/99; PULSE 89; RESP 16; TEMP 36.2; O2SAT 97; BMI 58.8
--- NOTE | 2021-05-19 13:09 | VDLE_ITS ---
Reason For Study: edema RIGHT LEFT GSV is normal. GSV is normal. CFV is compressible, spontaneous, phasic, CFV is compressible, spontaneous, phasic, competent and demonstrates normal competent, and demonstrates normal augmentation. augmentation. FV is compressible, spontaneous, phasic, FV is compressible, spontaneous, phasic, competent and demonstrates normal competent and demonstrates normal augmentation. augmentation. POP V is compressible, spontaneous, phasic, POP V is compressible, spontaneous, phasic, competent and demonstrates normal competent and demonstrates normal augmentation. augmentation. T/P Trunk is compressible. T/P Trunk is compressible. PTV is compressible. PTV is compressible. RT PerV is compressible. LT PerV is compressible. Procedure This is a venous duplex using B-mode, color flow and spectral Doppler. Exam performed portable in ED. The exam was diagnostic. A preliminary report was called and/or faxed to Dr. Castro. VL/Venous Duplex US - [place] Extrem Interpretation Summary No evidence for acute deep venous thrombosis bilateral lower extremities with p atent and compressible bilateral great saphenous veins. Ordering Physician: Taylor Castro Performed By: Douglas Benito RVT
--- NOTE | 2021-05-19 13:10 | EKG12_ITS ---
Test Reason : Blood Pressure : / mmHG Vent. Rate : 085 BPM Atrial Rate : 085 BPM P-R Int : 144 ms QRS Dur : 088 ms QT Int : 372 ms P-R-T Axes : 050 -06 003 degrees QTc Int : 442 ms Normal sinus rhythm Normal ECG Confirmed by CHITO MCKEON, HAILY ([id number]), advertising editor LANETTE ANDREWS ([id number]) on 05/20/2021 9:48:49 AM Referred By: TRINO Confirmed By:HAILY DALE MD
--- NOTE | 2021-05-19 13:11 | EDS_ITS ---
HPI History of Present Illness Chief Complaint: Edema Detail of Chief Complaint: Swelling to legs and arms Informant: patient Narrative Narrative: Patient presents to the emergency department complaint of swelling in her legs and arms. Patient states that it has been worse over the last 2 days. Patient was admitted a week ago for low potassium after taking metaxalone. Patient states that she normally does take Lasix and yesterday her primary care physician asked her to increase to 80 mg daily from 40 mg daily. Patient today felt somewhat short of breath and had some pressure in her chest so she was referred to the ER for repeat evaluation. No history of PE or DVT. Patient is unsure if she is gained any weight. Prior similar symptoms: Yes PFSH PFS Medical History (Updated 05/19/21 @ 15:[address] Taylor Castro, ) Anemia Asthma Back pain Chronic pain CPAP (continuous positive airway pressure) dependence Depression Diabetes Edema GERD (gastroesophageal reflux disease) Heel spur Hiatal hernia History of diverticulitis Hx of echocardiogram Hx of psoriatic arthritis Hypothyroidism Migraine headache MVP (mitral valve prolapse) Narcolepsy Non-smoker Osteoporosis Pain aggravated by walking Post-menopausal Restless legs Rheumatic fever Shortness of breath on exertion Sleep apnea Wears glasses Home Medications acetaminophen 1,000 mg PO TID 04/12/19 [History Last Taken 05/04/21 18:30 500 mg] cetirizine 10 mg PO DAILY 04/12/19 [History Last Taken 05/04/21 06:30 10 mg] levothyroxine 100 mcg PO DAILY 04/12/19 [History Last Taken 05/04/21 06:30 100 mcg] pantoprazole 40 mg PO DAILY 04/12/19 [History Last Taken 05/04/21 06:30 40 mg] paroxetine HCl 40 mg PO DAILY 04/12/19 [History Last Taken 05/04/21 08:15 40 mg] Taltz Autoinjector 80 mg SUBCUT .Q28D 07/24/20 [History Last Taken 04/29/21 10:00 80 mg] ergocalciferol (vitamin D2) [Vitamin D2] 1,250 mcg PO ZAMORA 07/24/20 [History Last Taken 05/02/21 06:30 1250 mcg] fluticasone propionate 2 puff INHALATION DAILY 07/24/20 [History Last Taken 05/04/21 07:00] leflunomide 10 mg PO DAILY 07/24/20 [History Last Taken 05/04/21 18:30 10 mg] pramipexole 1 mg PO TID 10/27/20 [History Last Taken 05/04/21 13:00 1 mg] potassium chloride 20 meq PO BIDCM #0 cap 05/07/21 [Rx Last Taken 05/04/21 15:00 20 meq] eplerenone 25 mg PO DAILY 05/19/21 [History Last Taken Unknown] potassium chloride 20 meq PO DAILY 05/19/21 [History Last Taken Unknown] Allergy/AdvReac Type Severity Reaction Status Date / Time latex Allergy Rash Verified 05/19/21 12:02 meperidine [From Demerol] AdvReac Vomiting Verified 05/19/21 12:02 minocycline AdvReac Other Verified 05/19/21 12:02 morphine AdvReac Vomiting Verified 05/19/21 12:02 spironolactone AdvReac Vomiting Verified 05/19/21 12:02 Sulfa (Sulfonamide AdvReac Other Verified 05/19/21 12:02 Antibiotics) Surgical History History of History of carpal tunnel surgery of left wrist History of carpal tunnel surgery of right wrist History of cholecystectomy History of Kirstin fundoplication History of tonsillectomy History of vocal cord polypectomy Hx laparoscopic cholecystectomy Hx of dilation and curettage Hx of hernia repair Hx of hysterectomy Hx of sinus surgery Status post epidural steroid injection Social History household members: spouse Smoking Status: Never smoker substance use type: does not use ROS ROS ED Constitutional Constitutional ED: Reports systems reviewed and no addt'l complaints, except as documented; Denies body ache(s), change in weight or chills Eyes Eyes: Denies acute decrease in peripheral vision, change in vision, double vision or loss of vision ENT ENT ED: Reports none; Denies ear pain, lip swelling, loss taste/smell, neck pain, otalgia or sore throat Cardiovascular Cardiovascular: Reports none; Denies abdominal pain, chest pain with activity, leg edema, lightheadedness, palpitations, rapid heart rate or syncope Respiratory/Chest Respiratory/Chest: Reports none and dyspnea; Denies change in mental status, dry cough, hemoptysis, shortness of breath at rest or shortness of breath with e xertion Gastrointestinal Gastrointestinal: Reports none; Denies abdominal pain, change in stool charact er, diarrhea, hematemesis, hematochezia, melena, rectal bleeding or vomiting Genitourinary Genitourinary ED: Reports none; Denies abdominal discomfort, anuria, dysuria, genital pain or polyuria Musculoskeletal Musculoskeletal: Reports none and other Details: Extremity edema ; Denies arthralgias, back pain, difficulty walking, extremity pain, muscle weakness or myalgias Integumentary Reports none; Denies abscess or rash Neurologic Neurologic: Reports none; Denies abnormal gait, confusion, focal weakness, frequent falls, headache(s), loss of vision, numbness, paresthesias, radicular pain, vertigo or weakness Psychiatric Psychiatric: Reports systems reviewed and no addt'l complaints, except as documented and none; Denies behavioral changes, confusion, difficulty concentrating, hallucinations, suicidal ideation, tactile hallucinations or visual hallucinations Endocrine Endocrinology: Denies none, cold intolerance, excessive sweating, fatigue or heat intolerance Hematologic/Lymphatic Hematologic/Lymphatic: Reports none; Denies anemia, easy bleeding or easy bruising Allergic/Immunologic Allergic/Immunologic ED: Denies as per HPI, none, lip swelling, mouth swelling, throat swelling, tongue swelling or hives EXAM Physical Exam Const Vital Signs: 05/19/21 12:00 05/19/21 12:58 Temperature 97.2 F L Temperature Source Temporal Pulse Rate 89 Respiratory Rate 16 Respiratory Effort Normal Non-Labored Respiratory Pattern Normal Blood Pressure 163/99 H Blood Pressure Mean 120 Pulse Ox 97 Oxygen Delivery Method Room Air Positive well nourished and well developed General Appearance ED: well developed and NAD HEENT Reports TM's clear and moist mucous membranes normocephalic and atraumatic; Negative for trauma or tenderness Tympanic Membrane ED: Yes TM's clear Eyes PERRL and EOMs intact bilaterally General Eye ED: Negative for pale conjunctiva or scleral icterus Neck no lymphadenopathy, supple and no JVD General: Negative for tenderness Chest Wall inspection of chest normal and palpation of chest normal Chest: Negative for tenderness Resp normal respiratory effort and clear to auscultation bilaterally Effort and Inspection: Negative for respiratory distress or pain with movement Auscultation: Negative for rhonchi, wheezes or diminished lung sounds Cardio regular rate, regular rhythm, S1 normal heart sound, S2 normal heart sound and no murmurs Peripheral Pulses: pulses 2+ throughout GI normal to inspection, nondistended, normoactive bowel sounds, soft to palpation, non-tender, non-distended and no masses Back/Spine no CVA tenderness and no thoracic nor lumbar tenderness Extremity normal to inspection Extremity Narrative: +2 edema both lower extremities. Symmetrical edema noted. Neurovascular intact distally. General Extremety ED: Yes edema General Extremity: edema Neuro oriented x3, CN's II-XII intact bilaterally, no sensory deficits noted and gait normal Sensorium / Orientation: awake, alert, oriented to person, oriented to place and oriented to time Motor Exam: strength 5/5 throughout and strength abnormal Psych mental status grossly normal Skin no rashes or lesions noted and no wounds MDM MDM MDM Narrative Medical decision making narrative: IV line established on arrival. Patient was given 40 Jeimy equivalents of potassium chloride p.o. given a slightly depressed potassium of 3.4. Kidney function was normal. BNP was normal. Chest x-ray were unremarkable. Venous Dopplers of both lower extremities were negative for DVT. Lab Data Attestation: I reviewed the patient's lab results. Labs: Laboratory Results - last 24 hr 05/19/21 05/19/21 05/19/21 13:15 13:15 13:15 WBC 6.5 RBC 4.21 Hgb 13.9 Hct 40.6 MCV 96.4 MCH 33.0 H MCHC 34.2 RDW Std Deviation 46.5 H RDW Coeff of Peyman 13.2 Plt Count 306 MPV 8.7 Immature Gran % (Auto) 0.300 Neut % (Auto) 63.1 Lymph % (Auto) 24.3 [place] % (Auto) 7.9 Eos % (Auto) 3.9 Baso % (Auto) 0.5 Absolute Neuts (auto) 4.1 Absolute Lymphs (auto) 1.57 Nucleated RBC % 0 Sodium 138 Potassium 3.4 L Chloride 101 Carbon Dioxide 31.0 Anion Gap 6 BUN 14 Creatinine 0.99 Estim Creat Clear Calc 60.11 Est GFR (MDRD) Af Amer 75 Est GFR (MDRD) Non-Af 62 BUN/Creatinine Ratio 14.1 Glucose 156 H Calcium 9.6 Magnesium Troponin I High Sens 8 B-Natriuretic Peptide 7.3 05/19/21 13:15 WBC RBC Hgb Hct MCV MCH MCHC RDW Std Deviation RDW Coeff of Peyman Plt Count MPV Immature Gran % (Auto) Neut % (Auto) Lymph % (Auto) [place] % (Auto) Eos % (Auto) Baso % (Auto) Absolute Neuts (auto) Absolute Lymphs (auto) Nucleated RBC % Sodium Potassium Chloride Carbon Dioxide Anion Gap BUN Creatinine Estim Creat Clear Calc Est GFR (MDRD) Af Amer Est GFR (MDRD) Non-Af BUN/Creatinine Ratio Glucose Calcium Magnesium 2.1 Troponin I High Sens B-Natriuretic Peptide Radiography Chest X-Ray - ED: 1 View Diagnostic Testing: Clinical Impression(s) from Imaging Studies Chest X-Ray 05/19/21 13:29 IMPRESSION: No acute cardiopulmonary process identified. Electronically Signed: Gabe Herbert MD at 14:06 EST , 1 view chest x-ray obtained interpreted by myself as no acute disease process. EKG Initial EKG: Comments: Sinus rhythm with a ventricular rate of 85 bpm with no acute ST segment changes Discharge Plan Triage Chief Complaint: Edema ED Provider: Taylor Castro Dx/Rx/DC Orders Clinical Impression: Leg edema Instructions: ED Peripheral Edema, Bilateral Prescriptions: No Action acetaminophen 500 MG tablet 1,000 mg PO TID RF: 0 levothyroxine 100 MCG tablet 100 mcg PO DAILY RF: 0 pantoprazole 40 MG tablet 40 mg PO DAILY RF: 0 paroxetine HCl 40 MG tablet 40 mg PO DAILY RF: 0 cetirizine 10 MG capsule 10 mg PO DAILY RF: 0 leflunomide 10 mg Tablet 10 mg PO DAILY RF: 0 fluticasone propionate 220 mcg/actuation Hfa Aerosol Inhaler 2 puff INHALATION DAILY RF: 0 ergocalciferol (vitamin D2) [Vitamin D2] 1,250 mcg (50,000 unit) Capsule 1,250 mcg PO ZAMORA RF: 0 Taltz Autoinjector 80 mg/mL Auto-Injector 80 mg SUBCUT .Q28D RF: 0 pramipexole 1 mg Tablet 1 mg PO TID RF: 0 potassium chloride 10 mEq Capsule, Extended Release 20 meq PO BIDCM Qty: 0 RF: 0 potassium chloride 10 mEq capsule, extended release 20 meq PO DAILY RF: 0 eplerenone 25 mg tablet 25 mg PO DAILY RF: 0 Primary Care Provider: Maddie Mccray Referrals: Maddie Mccray DO [Primary Care Provider] - 3-5 Days Disposition Disposition: Home, Self Care
[2021-05-19 13:28] LABS: Absolute Lymphocyte Count 1.57 X10^3/uL (0.83-4.51); Absolute Neutrophil Count 4.1 X10^3/uL (2.0-7.7); Basophil# 0.03 X10^3/uL; Basophil% 0.5 % (0-1); Eosinophil# 0.25 X10^3/uL; Eosinophils% 3.9 % (0-5); Hematocrit 40.6 % (37-47); Hemoglobin 13.9 g/dL (12.0-15.0); Lymphocyte # 1.57 X10^3/ul (0.83-4.51); Lymphocyte % 24.3 % (19-41); Mean Corp Hgb Conc 34.2 g/dL (32-36); Mean Corpuscular Volume 96.4 fL (81-99); Mean Platelet Vol. 8.7 fl (6.2-12.0); Monocyte# 0.51 X10^3/uL; Monocyte% 7.9 % (0-10); NRBC Flagged by Analyzer 0 % (0-5); Neutrophil # 4.09 X10^3/uL (2.7-7.7); Neutrophil % 63.1 % (47-70); Platelet Count 306 K/mm3 (150-450); RBC Distribution Width CV 13.2 % (11.6-14.6); RBC Distribution Width SD 46.5 fl (35.1-43.9); Red Blood Count 4.21 M/mm3 (4.2-5.4); White Blood Count 6.5 K/mm3 (4.4-11.0)
--- NOTE | 2021-05-19 13:29 | RAD_ITS ---
STUDY: X-RAY CHEST REASON FOR EXAM: Female, 55 years old. Dyspnea TECHNIQUE: Frontal radiograph COMPARISON: 05/04/2021. FINDINGS: Persistent nonspecific elevation of the right hemidiaphragm. The lungs are clear and expanded. There is no demonstrated pleural abnormality. Normal size heart. Normal mediastinum and buck. Normal visualized pulmonary arteries. Normal visualized aortic arch and descending thoracic aorta. Normal visualized thoracic spine. Normal visualized ribs, clavicles, and shoulders. There is no demonstrated abnormality of the visualized soft tissue structures of the upper abdomen. RAD/Chest 1 View (Portable) IMPRESSION: No acute cardiopulmonary process identified. Electronically Signed: Gabe Herbert MD at 14:06 EST ,
[2021-05-19 13:46] LABS: Anion Gap 6 (5-15); BUN 14 mg/dL (7-18); BUN/Creat Ratio 14.1 RATIO (10-20); Calcium,Total 9.6 mg/dL (8.5-10.1); Chloride 101 mmol/L (98-107); Creatinine, Serum 0.99 mg/dL (0.55-1.02); EST Glomerular Filtration Rate 62 mL/min (>60); Est Glom Filt Rate - Afr Amer 75 mL/min (>60); Estimated Creatinine Clearance 60.11 ml/min; Glucose 156 mg/dL (74-106); Potassium 3.4 mmol/L (3.5-5.1); Sodium Level 138 mmol/L (136-145); Troponin-I HS 8 pg/mL (3.0-54.0)
[2021-05-19 13:58] LABS: Magnesium 2.1 mg/dL (1.6-2.6)
[2021-05-19 14:00] LABS: BNP,B-Type NATRIURETIC PEPTIDE 7.3 pg/mL (0-100)
[2021-05-19] MEDS: Potassium Chloride Oral Tablet 20 MEQ 40 MEQ PO (14:49)
[2021-05-19 15:11] VITALS: BP 141/94; PULSE 71; RESP 16; O2SAT 97
== END 2021-05-19 15:11 | disposition home or self-care (01) ==
PROVIDERS: Emergency Provider Emergency Medicine; PCP Family Medicine; Visit Provider Emergency Medicine
DX: R60.0 Localized edema (principal); L40.50 Arthropathic psoriasis, unspecified; E11.9 Type 2 diabetes mellitus without complications; R07.89 Other chest pain; R06.02 Shortness of breath; J45.909 Unspecified asthma, uncomplicated; G89.29 Other chronic pain; K21.9 Gastro-esophageal reflux disease without esophagitis; Z87.19 Personal history of other diseases of the digestive system; E03.9 Hypothyroidism, unspecified; M81.0 Age-related osteoporosis without current pathological fracture; G47.30 Sleep apnea, unspecified; Z79.899 Other long term (current) drug therapy; I34.1 Nonrheumatic mitral (valve) prolapse
CPT/HCPCS: 71045; 80048; 83735; 83880; 84484; 85025; 93005; 93970; 99283

== ENCOUNTER 2021-05-27 09:33 | Outpatient (CLI) | payer OTHER, SELFPAY ==
[2021-05-27 10:56] LABS: ALB/GLOB Ratio 0.9 RATIO (0.9-2.4); AST(SGOT) 29 U/L (15-37); Alanine Aminotransfer ALT/SGPT 36 U/L (13-56); Albumin, Serum 3.4 g/dL (3.2-5.0); Alkaline Phosphatase 128 U/L (45-117); Anion Gap 6 (5-15); BUN 14 mg/dL (7-18); BUN/Creat Ratio 16.1 RATIO (10-20); Calcium,Total 9.8 mg/dL (8.5-10.1); Chloride 100 mmol/L (98-107); Creatinine, Serum 0.87 mg/dL (0.55-1.02); EST Glomerular Filtration Rate 72 mL/min (>60); Est Glom Filt Rate - Afr Amer 87 mL/min (>60); Globulin 3.7 g/dL (2.2-4.2); Glucose 122 mg/dL (74-106); Protein, Total 7.1 g/dL (6.4-8.2); Sodium Level 138 mmol/L (136-145)
== END 2021-05-27 23:59 | disposition home or self-care (01) ==
LOC: MTLAB 09:34
PROVIDERS: PCP Family Medicine; Referring Provider Family Medicine; Visit Provider Family Medicine
DX: E87.6 Hypokalemia (principal); Z51.81 Encounter for therapeutic drug level monitoring
CPT/HCPCS: 36415; 80053

== ENCOUNTER → 2021-07-27 | Outpatient (CLI) | payer OTHER, SELFPAY ==
[2021-07-27 15:25] LABS: Anion Gap 6 (5-15); BUN 15 mg/dL (7-18); BUN/Creat Ratio 22.9 RATIO (10-20); Calcium,Total 9.3 mg/dL (8.5-10.1); Chloride 106 mmol/L (98-107); Creatinine, Serum 0.66 mg/dL (0.55-1.02); EST Glomerular Filtration Rate 99 mL/min (>60); Est Glom Filt Rate - Afr Amer 120 mL/min (>60); Glucose 98 mg/dL (74-106); Potassium 3.9 mmol/L (3.5-5.1); Sodium Level 141 mmol/L (136-145)
== END | disposition home or self-care (01) ==
LOC: MTLAB 11:18
PROVIDERS: PCP Family Medicine; Referring Provider Internal Medicine Nephrology; Visit Provider Internal Medicine Nephrology
DX: E87.6 Hypokalemia (principal)
CPT/HCPCS: 36415; 80048

== ENCOUNTER → 2021-11-12 | Outpatient (CLI) | payer OTHER, SELFPAY ==
[2021-11-12 15:14] LABS: Erythrocyte Sedimentation Rate 25 mm/hr (0-30)
[2021-11-12 15:16] LABS: Absolute Lymphocyte Count 1.19 X10^3/uL (0.83-4.51); Absolute Neutrophil Count 9.3 X10^3/uL (2.0-7.7); Basophil# 0.03 X10^3/uL; Basophil% 0.3 % (0-1); Eosinophil# 0.07 X10^3/uL; Eosinophils% 0.6 % (0-5); Hematocrit 41.6 % (37-47); Hemoglobin 13.4 g/dL (12.0-15.0); Lymphocyte # 1.19 X10^3/ul (0.83-4.51); Lymphocyte % 10.8 % (19-41); Mean Corp Hgb Conc 32.2 g/dL (32-36); Mean Corpuscular Hgb 32.3 pg (27.0-32.0); Mean Corpuscular Volume 100.2 fL (81-99); Mean Platelet Vol. 9.4 fl (6.2-12.0); Monocyte% 2.7 % (0-10); NRBC Flagged by Analyzer 0 % (0-5); Neutrophil # 9.34 X10^3/uL (2.7-7.7); Neutrophil % 85.2 % (47-70); Platelet Count 318 K/mm3 (150-450); RBC Distribution Width CV 13.6 % (11.6-14.6); RBC Distribution Width SD 50.3 fl (35.1-43.9); Red Blood Count 4.15 M/mm3 (4.2-5.4)
[2021-11-12 15:39] LABS: ALB/GLOB Ratio 0.9 RATIO (0.9-2.4); AST(SGOT) 18 U/L (15-37); Alanine Aminotransfer ALT/SGPT 31 U/L (13-56); Albumin, Serum 3.4 g/dL (3.2-5.0); Alkaline Phosphatase 111 U/L (45-117); Anion Gap 9 (5-15); BUN 19 mg/dL (7-18); BUN/Creat Ratio 22.7 RATIO (10-20); CRP < 2.90 mg/L (0.0-3.0); Calcium,Total 8.7 mg/dL (8.5-10.1); Chloride 106 mmol/L (98-107); Creatinine, Serum 0.84 mg/dL (0.55-1.02); EST Glomerular Filtration Rate 75 mL/min (>60); Est Glom Filt Rate - Afr Amer 91 mL/min (>60); Ferritin 164 ng/mL (8-252); Globulin 3.7 g/dL (2.2-4.2); Glucose 195 mg/dL (74-106); Iron 52 ug/dL (50-170); Protein, Total 7.1 g/dL (6.4-8.2); Sodium Level 138 mmol/L (136-145)
== END | disposition home or self-care (01) ==
PROVIDERS: PCP Family Medicine; Referring Provider Family Medicine; Visit Provider Family Medicine
DX: K92.1 Melena (principal); R19.7 Diarrhea, unspecified; D50.9 Iron deficiency anemia, unspecified
CPT/HCPCS: 36415; 80053; 82728; 83540; 85025; 85652; 86140

== ENCOUNTER 2021-12-14 07:52 | Day surgery (SDC) | payer OTHER, SELFPAY ==
[2021-12-14] MEDS: Lactated Ringers 1,000 ML 15 ML IV (08:10)
[2021-12-14 08:22] VITALS: BP 139/78; PULSE 90; RESP 16; TEMP 36.8; O2SAT 98; BMI 57.9
--- NOTE | 2021-12-14 08:25 | RAD_ITS ---
STUDY: X-RAY - SACROILIAC JOINTS REASON FOR EXAM: Female, 56 years old. Intraprocedural digital documentation view of sacroiliac joint injection. TECHNIQUE: A single intraoperative digital documentation view(s) of the sacroiliac joints were obtained. COMPARISON: None. FINDINGS: Single intraprocedural digital documentation view shows contrast near the lower SI joint. RAD/S-I Jts 3 or More Views IMPRESSION: Intraprocedural digital documentation of the wrist described. Electronically Signed: Henry Yen, at 8:29 EDT ,
[2021-12-14] MEDS: MethylPREDNISolone Acetate 40 MG/ML Vial IM (09:10)
[2021-12-14] MEDS: Lidocaine 1% (30 ml sdv) 30 ML Vial (09:10)
--- NOTE | 2021-12-14 09:19 | PCM.OPRPT ---
Report of Operation Date of Procedure: 12/14/21 Description of Surgical Findings:: PREOPERATIVE DIAGNOSES: 1. Sacroiliitis. 2. Sacroiliac joint dysfunction. POSTOPERATIVE DIAGNOSES: 1. Sacroiliitis. 2. Sacroiliac joint dysfunction. PROCEDURE PERFORMED: Left-sided sacroiliac joint steroid injection under fluoroscopy guidance. ANESTHESIA: MAC. BLOOD LOSS: Minimal. COMPLICATIONS: None. DESCRIPTION OF PROCEDURE: History and physical of today was reviewed. Risks and benefits of the procedure were explained. The patient understood and agreed to the procedure. Informed consent was obtained. IV inserted per routine protocol. The patient was taken to the operating room and placed in the prone position with a pillow positioned underneath the abdomen. The left lower back and buttock area was prepped and draped in a sterile fashion using iodine x3. Under fluoroscopy guidance on an AP view, the left SI joint was visualized. The skin and subcutaneous tissue was anesthetized with approximately 3 mL of 1% lidocaine using a 25-gauge regular needle. Under direct visualization with fluoroscopy at approximately 15-degree angle, using a 22-gauge 5 inch spinal needle, the needle was advanced via the skin. The tip of the needle was maneuvered and directed towards the inferior one-third of the posterior SI joint. Once the tip of the needle was at the vicinity of the joint, after negative aspiration for blood or CSF, a total of 1 mL of contrast was injected to confirm correct placement of the needle as well as cephalocaudal spread. Confirmation was obtained on AP as well as oblique view. After repeated negative aspiration and confirmation, a total of 4 mL of preservative-free 0.25% Marcaine with 40 mg of Depo-Medrol was injected in and around the SI joint. The needle was then removed intact. The patient experienced no sign or symptoms of intrathecal or intravascular injection. The patient experienced no paresthesia. The procedure was completed without any apparent difficulty or any complications. The patient appeared to tolerate it well. ASSESSMENT AND PLAN: This is a 56-year-old female with sacroiliitis, sacroiliac joint dysfunction status post left-sided sacroiliac joint steroid injection under fluoroscopic guidance, patient will continue her current medications, patient will follow in approximately 2 weeks for reevaluation.
[2021-12-14 09:20] VITALS: BP 109/84; BP 139/78; PULSE 80; RESP 16; TEMP 36.9; O2SAT 96
[2021-12-14 09:25] VITALS: BP 139/78; BP 99/71; PULSE 81; RESP 16; O2SAT 96
[2021-12-14 09:30] VITALS: BP 116/57; BP 139/78; PULSE 80; RESP 16; O2SAT 96
[2021-12-14 09:35] VITALS: BP 112/68; BP 139/78; PULSE 81; RESP 16; TEMP 36.7; O2SAT 97
[2021-12-14 09:59] VITALS: BP 139/78
== END 2021-12-14 10:05 | disposition home or self-care (01) ==
LOC: SDC 07:53 → AC 07:54
PROVIDERS: PCP Family Medicine; Visit Provider Anesthesiology Pain Medicine
PROC: 3E0U3GC Introduction of Other Therapeutic Substance into Joints, Percutaneous Approach (ICD-10-PCS; CPT 27096; principal; 2021-12-14 09:20)
DX: M46.1 Sacroiliitis, not elsewhere classified (principal); M46.96 Unspecified inflammatory spondylopathy, lumbar region; L40.50 Arthropathic psoriasis, unspecified; M47.27 Other spondylosis with radiculopathy, lumbosacral region; M48.07 Spinal stenosis, lumbosacral region; M53.3 Sacrococcygeal disorders, not elsewhere classified; J45.909 Unspecified asthma, uncomplicated; K21.9 Gastro-esophageal reflux disease without esophagitis; E03.9 Hypothyroidism, unspecified; D64.9 Anemia, unspecified; F32.9 Major depressive disorder, single episode, unspecified; G25.81 Restless legs syndrome; M81.0 Age-related osteoporosis without current pathological fracture; G47.419 Narcolepsy without cataplexy; G47.30 Sleep apnea, unspecified; M19.90 Unspecified osteoarthritis, unspecified site; Z78.0 Asymptomatic menopausal state; Z79.52 Long term (current) use of systemic steroids; Z79.899 Other long term (current) drug therapy; Z87.19 Personal history of other diseases of the digestive system
CPT/HCPCS: 27096; 01992; 64483; 72202; J7120

== ENCOUNTER 2022-02-05 07:05 | Outpatient (CLI) | payer OTHER, SELFPAY ==
[2022-02-05 09:55] LABS: Calcium,Total 9.1 mg/dL (8.5-10.1)
[2022-02-05 09:57] LABS: PTHIN 35.2 pg/mL (18.4-80.1)
[2022-02-05 10:02] LABS: Vitamin D,25 Hydroxy 55.9 ng/mL
== END 2022-02-05 23:59 | disposition home or self-care (01) ==
LOC: MTLAB 07:06
PROVIDERS: PCP Family Medicine; Referring Provider Internal Medicine Endocrinology, Diabetes & Metabolism; Visit Provider Internal Medicine Endocrinology, Diabetes & Metabolism
DX: M81.0 Age-related osteoporosis without current pathological fracture (principal); E55.9 Vitamin D deficiency, unspecified
CPT/HCPCS: 36415; 82306; 82310; 83970

== ENCOUNTER 2022-02-22 10:30 | Outpatient (RCR) | payer OTHER, SELFPAY ==
--- NOTE | 2022-01-25 11:54 | HP.PTEVAL ---
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 Date of Evaluation: 01/25/22 Physical Therapist: Panda Nicholson, PT, Cert MDT, OCS - Visit Plan Frequency: 2x /Week Duration: 8WEEKS Plan: PRECUATION: OSTEOPROSIS. PT INTERVETIONS POSTURAL EX'S ,DLS ,LE STRENGTHENING ,WB ACTIVITIES ,AND FUNCTIONAL STRENGTHENING - Subjective This 56 y/o female presents to physical therapy with lumbar pain. Patient has lumbar pain many years. . Most, recently ~ weeks ago felt a pop getting OOB bed. Seen spine Dr and did x-rays showed compression fracture. Patient has h/o old compression fractures with h/o osteoporosis. Patient is on Boniva and plans to recommended consult with endroconologsit. Patient had h/o injection SI joints and multiple epidural injections. MEDS: Celebrex. Dr recommended using lumbar brace. Aggravating factors standing/walking /twisting and bending/lifting. Patient use cane for walking due to h/o falls ~ 2 months. C/O paresthesia/tingling in feet. Bowel/bladder. Cough/sneeze + .Patient symptoms affects sleeping. Patient pain affects QOL and function. 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 SOCIAL: - Pain Bilateral Back Pain Intensity (Out of 10): 7 Pain Intensity Range: 10 - Objective POSTURE: mild forward posture ,knee valgus ,genu recurvatum. GAIT: ambulates with cane slow zuhair mild forward posture. SYMMETRIES: align. PALAPTION: tender LS. NEURO: c/o paresthesia in feet ,reflexes L3-4,L4-5,L5-S1 1/3. MMT: quads/hams 4/5 ,hip flexion 4-/5 ,ankle 4/5. LUMBAR ROM: flexion mod loss ,min/mod loss ,side glides min loss. FLEXABLITY: hamstrings WFL - Special Tests L/S Slump test left side: Negative L/S Slump test right side: Negative L/S Left Straight Leg Raise: Negative L/S Right Straight Leg Raise: Negative - Balance/Special Test Scores Oswestry Low Back Score: 25 - Goals Goal 1:: Patient to be I with HEP for lumbar Goal Time Frame: 4-6 Weeks Goal 2:: Patient to demonstrate 50% improvement to increase pain and improve function Goal Time Frame: 4-6 Weeks Goal 3:: Patient to improve walking/standing with housework tasks with min limitations Goal Time Frame: 4-6 Weeks Goal 4:: Patient to improve back oswestry score by 5 points to improve QOL. Goal Time Frame: 4-6 Weeks Goal 5:: Patient to improve lumbar ROM for function of recovery for ADLS Goal Time Frame: 4-6 Weeks - Rehabilitation Potential Physical Therapy Diagnosis: DX: SPONDYLOLISTHESIS ,LUMBAR ,WEDGE COMPRESSION FRACTUE FIRST VERTEBRAE( WEAR LUMABR BRACE). PATIENT HAS LUMBAR PAIN DUE TO H/O OSTEOPROSIS AND LUMBAR STENOSIS ALONG WITH WEAKNES .BACK WITH WALKING AND STANDING THUS BENEFIT FROM SKILLED PT. Rehabilitation Potential: Good - Anticipated Interventions Patient/Client Instruction: Educate patient on: Condition, Plan of Care For the Purpose of:: To decrease pain, To increase ROM, To improve muscle performance and motor function, To improve ability to perform ADL's, To increase tolerance to activity/condition/position, To improve ability of physical actions for home/community/work/leisure, To improve gait and locomotor functions, To improve health of tissue, To increase flexibility/ROM, To prevent re-injury Therapeutic Exercise to Include: Strength training, Endurance training, Body mechanics, Postural training, Flexibilty training, Dynamic Lumbar Stabilization For the Purpose of:: To improve muscle performance and motor function, To improve ability to perform ADL's, To increase tolerance to activity/condition/position, To decrease level of supervision to perform tasks, To improve health of tissue, To decrease soft tissue restriction, To increase flexibility/ROM, To prevent re-injury Thank you for the opportunity to evaluate your patient. For Medicare and Medicare HMO plans, please review the plan of care and approve it. It will need to be FAXED BACK to us at [phone] for Medicare purposes. For Medicare only, by signing this I certify the plan of care. Please let me know if there are questions or concerns regarding this plan of care. Physician Signature: Date:
--- NOTE | 2022-07-20 10:20 | HP.PT.NRP ---
ELICEO REY was seen in my office for initial evaluation on 01/25/22. The following Plan of Care was established for this patient: Initial Frequency: 2x /Week Initial Duration: 8WEEKS Patient/Client Instruction: Educate patient on: Condition, Plan of Care For the Purpose of:: To decrease pain, To increase ROM, To improve muscle performance and motor function, To improve ability to perform ADL's, To increase tolerance to activity/condition/position, To improve ability of physical actions for home/community/work/leisure, To improve gait and locomotor functions, To improve health of tissue, To increase flexibility/ROM, To prevent re-injury Therapeutic Exercise to Include: Strength training, Endurance training, Body mechanics, Postural training, Flexibilty training, Dynamic Lumbar Stabilization For the Purpose of:: To improve muscle performance and motor function, To improve ability to perform ADL's, To increase tolerance to activity/condition/position, To decrease level of supervision to perform tasks, To improve health of tissue, To decrease soft tissue restriction, To increase flexibility/ROM, To prevent re-injury This patient was last seen in our office . Pertinent comments regarding their Physical therapy will appear below: Patient seen for PT for osteoporosis and spinal stenosis focusing on strengthening thus is d/c to HEP At this point I will be discontinuing this patient from physical therapy. I would be happy to see this patient again in the future if found appropriate by the physician. Thank you! Panda Nicholson, PT, Cert MDT, OCS Balance/Gait/Functional tests - Balance/Special Test Scores Oswestry Low Back Score: 9
== END 2022-02-22 19:00 | disposition home or self-care (01) ==
LOC: PT 10:30
PROVIDERS: PCP Family Medicine
DX: M43.16 Spondylolisthesis, lumbar region (principal); M48.062 Spinal stenosis, lumbar region with neurogenic claudication; M80.08XD Age-related osteoporosis with current pathological fracture, vertebra(e), subsequent encounter for fracture with routine healing; S32.010D Wedge compression fracture of first lumbar vertebra, subsequent encounter for fracture with routine healing
CPT/HCPCS: 97110; 97162

== ENCOUNTER → 2022-02-23 | Outpatient (CLI) | payer OTHER, SELFPAY ==
[2022-02-23 14:37] VITALS: BP 141/72; PULSE 79
[2022-02-23] MEDS: DENOSUMAB 60 MG/ML SC (14:44)
== END | disposition home or self-care (01) ==
LOC: MEDOUTP 14:26
PROVIDERS: PCP Family Medicine; Referring Provider Internal Medicine Endocrinology, Diabetes & Metabolism; Visit Provider Internal Medicine Endocrinology, Diabetes & Metabolism
DX: M81.0 Age-related osteoporosis without current pathological fracture (principal)
CPT/HCPCS: 96372; J0897

== ENCOUNTER → 2022-07-14 | Outpatient (CLI) | payer OTHER, SELFPAY ==
[2022-07-14 13:00] LABS: Free T3 2.6 pg/mL (2.18-3.98); T4 Free Direct 0.95 ng/dL (0.76-1.46); Thyroid Stim Hormone (TSH) 1.64 uIU/mL (0.358-3.74)
== END | disposition home or self-care (01) ==
LOC: MTLAB 09:53
PROVIDERS: PCP Family Medicine; Referring Provider Family Medicine; Visit Provider Family Medicine
DX: E03.9 Hypothyroidism, unspecified (principal)
CPT/HCPCS: 36415; 84439; 84443; 84481

== ENCOUNTER → 2022-07-15 | Outpatient (CLI) | payer OTHER, SELFPAY ==
--- NOTE | 2022-07-15 08:06 | BI_ITS ---
MAMMOGRAPHY - BILATERAL SCREENING REASON FOR EXAM: Female, 56 years old. Routine annual screening examination. PERTINENT HISTORY: Aunt with breast cancer. TECHNIQUE: Digital bilateral breast jensen (3D mammographic acquisition) in the CC and MLO projections. 2-D mediolateral oblique (MLO) and craniocaudad (CC) views of both breasts were obtained. CAD: Full Field Digital Mammography with Computer Added Detection was performed. COMPARISON: Comparison is made with prior study dated December 16, 2020. FINDINGS: Breast Composition: The breasts are almost entirely fatty. There are no dominant masses or suspicious calcifications. No other significant abnormalities are identified. There has been no significant change since the prior study. BI/SCRN MAMM (CAD)W/JENSEN BILAT IMPRESSION: Stable bilateral screening mammogram. Yearly follow-up mammogram recommended. (A) ASSESSMENT CATEGORY: BIRADS Category 1: Negative. A letter regarding these results will be sent to the patient by the facility within 30 days. Approximately 10% of breast cancers are not detected by mammography. A normal mammogram should not delay biopsy of a clinically suspicious abnormality. [id number] Electronically Signed: Zoran Fuentes MD at 8:57 EDT ,
== END | disposition home or self-care (01) ==
LOC: OPBI 08:03
PROVIDERS: PCP Family Medicine; Referring Provider Family Medicine; Visit Provider Family Medicine
DX: Z12.31 Encounter for screening mammogram for malignant neoplasm of breast (principal); Z80.3 Family history of malignant neoplasm of breast
CPT/HCPCS: 77063; 77067

== ENCOUNTER → 2022-07-22 | Outpatient (CLI) | payer OTHER, SELFPAY ==
[2022-07-22 10:51] LABS: Cholesterol 215 mg/dL (200); High Density Lipoprotein 42 mg/dL; Triglycerides 235 mg/dL; Very Low Density Lipoprotein 47 mg/dL (5-40)
== END | disposition home or self-care (01) ==
LOC: MTLAB 09:09
PROVIDERS: PCP Family Medicine; Referring Provider Family Medicine; Visit Provider Family Medicine
DX: E78.5 Hyperlipidemia, unspecified (principal)
CPT/HCPCS: 36415; 80061

== ENCOUNTER 2022-08-27 13:20 | Outpatient (CLI) | payer OTHER, SELFPAY ==
[2022-08-27 13:38] VITALS: RESP 16; TEMP 36.1
[2022-08-27] MEDS: DENOSUMAB 60 MG/ML SC (13:41)
== END 2022-08-27 13:21 | disposition home or self-care (01) ==
LOC: MEDOUTP 13:21
PROVIDERS: PCP Family Medicine; Referring Provider Internal Medicine Endocrinology, Diabetes & Metabolism; Visit Provider Internal Medicine Endocrinology, Diabetes & Metabolism
DX: M81.0 Age-related osteoporosis without current pathological fracture (principal)
CPT/HCPCS: 96372; J0897

== ENCOUNTER → 2022-12-20 | Outpatient (CLI) | payer OTHER, SELFPAY ==
[2022-12-20 15:46] LABS: Ferritin 456 ng/mL (8-252); Iron 105 ug/dL (50-170)
== END | disposition home or self-care (01) ==
PROVIDERS: PCP Family Medicine; Referring Provider Internal Medicine Pulmonary Disease; Visit Provider Internal Medicine Pulmonary Disease
DX: G25.81 Restless legs syndrome (principal)
CPT/HCPCS: 36415; 82728; 83540

== ENCOUNTER → 2023-01-25 | Outpatient (CLI) | payer OTHER, SELFPAY ==
[2023-01-25 15:18] LABS: Absolute Lymphocyte Count 2.27 X10^3/uL (0.83-4.51); Absolute Neutrophil Count 3.4 X10^3/uL (2.0-7.7); Basophil# 0.03 X10^3/uL; Basophil% 0.5 % (0-1); Eosinophil# 0.23 X10^3/uL; Eosinophils% 3.6 % (0-5); Hematocrit 38.1 % (37-47); Hemoglobin 11.9 g/dL (12.0-15.0); Lymphocyte # 2.27 X10^3/ul (0.83-4.51); Lymphocyte % 35.8 % (19-41); Mean Corp Hgb Conc 31.2 g/dL (32-36); Mean Corpuscular Hgb 33.3 pg (27.0-32.0); Mean Corpuscular Volume 106.7 fL (81-99); Mean Platelet Vol. 9.3 fl (6.2-12.0); Monocyte# 0.42 X10^3/uL; Monocyte% 6.6 % (0-10); NRBC Flagged by Analyzer 0 % (0-5); Neutrophil # 3.37 X10^3/uL (2.7-7.7); Neutrophil % 53.2 % (47-70); Platelet Count 342 K/mm3 (150-450); RBC Distribution Width CV 12.9 % (11.6-14.6); RBC Distribution Width SD 51.9 fl (35.1-43.9); Red Blood Count 3.57 M/mm3 (4.2-5.4); White Blood Count 6.3 K/mm3 (4.4-11.0)
[2023-01-25 15:39] LABS: ALB/GLOB Ratio 1.3 RATIO (0.9-2.4); AST(SGOT) 29 U/L (15-37); Alanine Aminotransfer ALT/SGPT 39 U/L (13-56); Albumin, Serum 3.8 g/dL (3.2-5.0); Alkaline Phosphatase 109 U/L (45-117); Anion Gap 5 (5-15); BUN 18 mg/dL (7-18); CRP < 2.90 mg/L (0.0-3.0); Calcium,Total 9.2 mg/dL (8.5-10.1); Chloride 106 mmol/L (98-107); Creatinine, Serum 0.86 mg/dL (0.55-1.02); EST Glomerular Filtration Rate 73 mL/min (>60); Est Glom Filt Rate - Afr Amer 88 mL/min (>60); Glucose 101 mg/dL (74-106); Potassium 4.1 mmol/L (3.5-5.1); Protein, Total 6.8 g/dL (6.4-8.2); Sodium Level 139 mmol/L (136-145)
[2023-01-25 15:50] LABS: Erythrocyte Sedimentation Rate 14 mm/hr (0-30)
[2023-01-25 16:10] LABS: Vitamin B12 789 pg/mL (211-911)
[2023-01-27 14:09] LABS: QNTFERON TB Mitogen Value > 10.00 IU/mL (.); QNTFERON TB Nil Value 0 IU/mL (.); QNTFERON TB1+ Ag Value 0 IU/mL (.); QNTFERON TB2+ Ag Value 0 IU/mL (.); QNTIFERON TB Positive Criteria Negative (Negative)
== END | disposition home or self-care (01) ==
LOC: BFHLAB 13:39
PROVIDERS: PCP Family Medicine; Visit Provider Registered Nurse
DX: L40.50 Arthropathic psoriasis, unspecified (principal); E53.8 Deficiency of other specified B group vitamins
CPT/HCPCS: 36415; 80053; 82607; 85025; 85652; 86140; 86480

== ENCOUNTER 2023-02-02 07:09 | Emergency (ER) | payer OTHER, SELFPAY ==
[2023-02-02 07:10] VITALS: BP 151/90; PULSE 88; RESP 14; TEMP 36.6; O2SAT 100; BMI 51.0
[2023-02-02 07:26] VITALS: O2SAT 97
[2023-02-02 07:33] LABS: Absolute Lymphocyte Count 2.82 X10^3/uL (0.83-4.51); Absolute Neutrophil Count 5.1 X10^3/uL (2.0-7.7); Basophil# 0.05 X10^3/uL; Basophil% 0.6 % (0-1); Eosinophil# 0.19 X10^3/uL; Eosinophils% 2.1 % (0-5); Hematocrit 39.8 % (37-47); Hemoglobin 12.6 g/dL (12.0-15.0); Lymphocyte # 2.82 X10^3/ul (0.83-4.51); Lymphocyte % 31.5 % (19-41); Mean Corp Hgb Conc 31.7 g/dL (32-36); Mean Corpuscular Hgb 33.7 pg (27.0-32.0); Mean Corpuscular Volume 106.4 fL (81-99); Mean Platelet Vol. 8.9 fl (6.2-12.0); Monocyte# 0.79 X10^3/uL; Monocyte% 8.8 % (0-10); NRBC Flagged by Analyzer 0 % (0-5); Neutrophil # 5.08 X10^3/uL (2.7-7.7); Neutrophil % 56.8 % (47-70); Platelet Count 313 K/mm3 (150-450); RBC Distribution Width CV 12.9 % (11.6-14.6); RBC Distribution Width SD 50.8 fl (35.1-43.9); Red Blood Count 3.74 M/mm3 (4.2-5.4)
[2023-02-02 07:59] LABS: Anion Gap 5 (5-15); BUN 19 mg/dL (7-18); BUN/Creat Ratio 19.8 RATIO (10-20); Calcium,Total 9.1 mg/dL (8.5-10.1); Chloride 106 mmol/L (98-107); Creatinine, Serum 0.96 mg/dL (0.55-1.02); EST Glomerular Filtration Rate 64 mL/min (>60); Est Glom Filt Rate - Afr Amer 77 mL/min (>60); Estimated Creatinine Clearance 60.53 ml/min; Glucose 88 mg/dL (74-106); Sodium Level 141 mmol/L (136-145); Troponin-I HS 9 pg/mL (3.0-54.0)
--- NOTE | 2023-02-02 08:01 | EX.ED.DYSGE1 ---
HPI History of Present Illness Chief Complaint: Palpitations Narrative Narrative: 7-year-old female presenting with palpitations. Patient states that she normally takes eplerenone but noted that her legs were a little edematous yesterday and decided to take a dose of Lasix 40 mg which she does not take but she had leftover. Patient denies history of CHF and states she has lower extremity edema which is chronic. She notes that she has a history of hypokalemia and is concerned that her potassium might be low as she is feeling his palpitations after taking the Lasix. Patient does take potassium supplements. He did not take any extra potassium. She denies chest pain or shortness of breath. States she felt generally fatigued this morning since that time. She is eating and drinking normally. She making normal urine and stool. No fevers or chills. Patient does report that her daughter has some viral syndrome that is not COVID. Patient does not have a cough, body aches. [facility] Medical History Ambulates with cane Anemia Asthma Back pain Chronic cough Chronic pain CPAP (continuous positive airway pressure) dependence Depression Easy bruising Edema Fatty liver GERD (gastroesophageal reflux disease) Heel spur Hiatal hernia History of Crohn's disease History of diverticulitis History of edema History of hiatal hernia History of rheumatic fever History of stress test Hoarseness Hx of echocardiogram Hx of psoriatic arthritis Hyperparathyroidism Hypothyroidism Injury of back Low iron Migraine headache MVP (mitral valve prolapse) Narcolepsy Non-smoker Osteoporosis Osteoporosis Pain aggravated by walking PONV (postoperative nausea and vomiting) Post-menopausal Psoriatic arthritis Restless legs Rheumatic fever Shortness of breath on exertion Sleep apnea Thyroid disease Walker as ambulation aid Wears glasses Home Medications acetaminophen 500 mg tablet 1,000 mg PO DAILY pain 04/12/19 [History Last Taken 05/04/21 18:30 500 mg] cetirizine 10 mg capsule 10 mg PO DAILY allergies 04/12/19 [History Last Taken 05/04/21 06:30 10 mg] levothyroxine 100 mcg tablet 100 mcg PO DAILY thyroid 04/12/19 [History Last Taken 12/14/21] pantoprazole 40 mg tablet,delayed release 40 mg PO DAILY reflux 04/12/19 [History Last Taken 12/14/21] ergocalciferol (vitamin D2) 1,250 mcg (50,000 unit) capsule (Vitamin D2) 1,250 mcg PO ZAMORA vitamin 07/24/20 [History Last Taken 05/02/21 06:30 1250 mcg] fluticasone propionate 220 mcg/actuation HFA aerosol inhaler 2 puff inhalation DAILY breathing 07/24/20 [History Last Taken 05/04/21 07:00] pramipexole 1 mg tablet 1 mg PO TID restless legs 10/27/20 [History Last Taken 05/04/21 13:00 1 mg] eplerenone 25 mg tablet 50 mg PO DAILY POTASSIUM SPARING WATER PILL 05/19/21 [History Last Taken Unknown] potassium chloride 10 mEq capsule,extended release 20 meq PO DAILY 05/19/21 [History Last Taken Unknown] calcium carbonate 600 mg-vitamin D3 10 mcg (400 unit) tablet (Calcium 600 + D(3)) 2 tab PO DAILY 12/11/21 [History Last Taken Unknown] duloxetine 20 mg capsule,delayed release (Cymbalta) 20 mg PO QHS 12/11/21 [History Last Taken Unknown] duloxetine 60 mg capsule,delayed release (Cymbalta) 60 mg PO BREAKFAST 12/11/21 [History Last Taken Unknown] ferrous gluconate 256 mg (28 mg iron) tablet 256 mg PO DAILY 12/11/21 [History Last Taken Unknown] mecobalamin (vitamin B12) 1,000 mcg chewable tablet (B12 Active) 1,000 mcg PO DAILY 12/11/21 [History Last Taken Unknown] gabapentin 100 mg capsule ea PO 02/02/22 [History Last Taken Unknown] leflunomide 20 mg tablet 20 mg PO 02/02/22 [History Last Taken Unknown] denosumab 60 mg/mL subcutaneous syringe (Prolia) 60 mg subcut [id number] #1 mL 01/31/23 [Rx Last Taken Unknown] upadacitinib 15 mg tablet,extended release 24 hr (Rinvoq) 15 mg PO DAILY 01/31/23 [History Last Taken Unknown] Allergy/AdvReac Type Severity Reaction Status Date / Time latex Allergy Rash Verified 02/02/23 07:11 meperidine [From Demerol] AdvReac Vomiting Verified 02/02/23 07:11 minocycline AdvReac Other Verified 02/02/23 07:11 morphine AdvReac Vomiting Verified 02/02/23 07:11 spironolactone AdvReac Vomiting Verified 02/02/23 07:11 Sulfa (Sulfonamide AdvReac Other Verified 02/02/23 07:11 Antibiotics) Surgical History History of History of carpal tunnel surgery of left wrist History of carpal tunnel surgery of right wrist History of cholecystectomy History of foot surgery History of Kirstin fundoplication History of tonsillectomy History of vocal cord polypectomy Hx laparoscopic cholecystectomy Hx of dilation and curettage Hx of hernia repair Hx of hysterectomy Hx of sinus surgery Status post epidural steroid injection Social History household members: spouse Smoking Status: Never smoker substance use type: does not use ROS ROS ED Constitutional Constitutional ED: Denies chills, fever(s) or sweats Eyes Eyes: Denies blurry vision or change in vision ENT ENT ED: Denies ear pain or sore throat Cardiovascular Cardiovascular: Reports palpitations; Denies chest pain or racing heartbeat Respiratory/Chest Respiratory/Chest: Denies cough, dyspnea or sputum Gastrointestinal Gastrointestinal: Denies abdominal pain, constipation, diarrhea, nausea or vomiting Genitourinary Genitourinary ED: Denies dysuria, hematuria or urinary frequency Musculoskeletal Musculoskeletal: Denies arthralgias, myalgias or neck pain Integumentary Denies abscess, Abrasions or rash Neurologic Neurologic: Denies headache(s), paresthesias or weakness Psychiatric Psychiatric: Denies anxiety, depression, suicidal ideation or suicidal thoughts Endocrine Endocrinology: Denies polydipsia or polyuria EXAM Physical Exam Const Vital Signs: 02/02/23 07:10 02/02/23 07:26 02/02/23 07:28 Temperature 97.9 F Temperature Source Temporal Pulse Rate 88 Respiratory Rate 14 Respiratory Effort Normal Non-Labored Blood Pressure 151/90 H Blood Pressure Mean 110 Pulse Ox 100 97 Oxygen Delivery Method Room Air Room Air General Appearance ED: NAD; Negative for pallor HEENT Reports moist mucous membranes Eyes PERRL and EOMs intact bilaterally Chest Wall inspection of chest normal Resp normal respiratory effort and clear to auscultation bilaterally Auscultation: Negative for rales, rhonchi or wheezes Cardio regular rate and regular rhythm Extremity General Extremety ED: Yes edema; Negative for tenderness General Extremity: edema Neuro oriented x3 and CN's II-XII intact bilaterally Sensorium / Orientation: alert Motor Exam: strength 5/5 throughout Psych mental status grossly normal Skin no rashes or lesions noted and no wounds General Skin Exam: Negative for jaundice or pallor MDM MDM MDM Narrative Medical decision making narrative: Patient presenting with palpitations. She is concerned her potassium is low. Differential includes hypokalemia, dehydration, hyponatremia, dysrhythmia, viral syndrome. Will obtain a CBC to assess white blood cell count, hemoglobin, platelets. BMP to assess renal function, electrolytes. High-sensitivity troponin EKG to assess for ischemia/dysrhythmia. EKG on my interpretation shows a normal sinus rhythm with a ventricular rate of 80 bpm without sign of ischemic change or ectopy. It is noted that when I am interviewing the patient she is having occasional PACs on the monitor. CBC shows normal white blood cell count, hemoglobin and platelets. BMP shows normal renal function and electrolytes other than potassium slightly low at 3.0. This will be repleted orally. High-sensitivity troponin is 9. I do not believe the patient needs any imaging or further blood work. I will replete the potassium and discharged home in stable condition. Impression: 1. Palpitations 2. Hypokalemia Lab Data Attestation: I reviewed the patient's lab results. Labs: Laboratory Results - last 24 hr 02/02/23 07:21 WBC 9.0 RBC 3.74 L Hgb 12.6 Hct 39.8 MCV 106.4 H MCH 33.7 H MCHC 31.7 L RDW Std Deviation 50.8 H RDW Coeff of Peyman 12.9 Plt Count 313 MPV 8.9 Immature Gran % (Auto) 0.200 Neut % (Auto) 56.8 Lymph % (Auto) 31.5 Luce % (Auto) 8.8 Eos % (Auto) 2.1 Baso % (Auto) 0.6 Absolute Neuts (auto) 5.1 Absolute Lymphs (auto) 2.82 Nucleated RBC % 0 Sodium 141 Potassium 3.0 L Chloride 106 Carbon Dioxide 30.0 Anion Gap 5 BUN 19 H Creatinine 0.96 Estim Creat Clear Calc 60.53 Est GFR (MDRD) Af Amer 77 Est GFR (MDRD) Non-Af 64 BUN/Creatinine Ratio 19.8 Glucose 88 Calcium 9.1 Troponin I High Sens 9 Discharge Plan Triage Chief Complaint: Palpitations ED Provider: Tre Zhang Dx/Rx/DC Orders Instructions: ED Hypokalemia, ED Palpitations Prescriptions: No Action gabapentin 100 mg capsule PO Patient Comments: take 1 capsule by mouth three times a day leflunomide 20 mg tablet 20 mg PO Patient Comments: take 1 tablet by mouth once daily Rinvoq 15 mg tablet extended release 24 hr 15 mg PO DAILY Prolia 60 mg/mL syringe 60 mg subcut [id number] Qty: 1 1RF acetaminophen 500 MG tablet 1,000 mg PO DAILY levothyroxine 100 MCG tablet 100 mcg PO DAILY pantoprazole 40 MG tablet 40 mg PO DAILY cetirizine 10 MG capsule 10 mg PO DAILY fluticasone propionate 220 mcg/actuation Hfa Aerosol Inhaler 2 puff INHALATION DAILY ergocalciferol (vitamin D2) [Vitamin D2] 1,250 mcg (50,000 unit) Capsule 1,250 mcg PO ZAMORA pramipexole 1 mg Tablet 1 mg PO TID potassium chloride 10 mEq capsule, extended release 20 meq PO DAILY Patient Comments: take 2 capsules by mouth once daily with food eplerenone 25 mg tablet 50 mg PO DAILY Patient Comments: take 1 tablet by mouth daily duloxetine [Cymbalta] 20 mg Capsule,Delayed Release(Dr/Ec) 20 mg PO QHS duloxetine [Cymbalta] 60 mg Capsule,Delayed Release(Dr/Ec) 60 mg PO BREAKFAST calcium carbonate-vitamin D3 [Calcium 600 + D(3)] 600 mg-10 mcg (400 unit) Tablet 2 tab PO DAILY ferrous gluconate 256 mg (28 mg iron) Tablet 256 mg PO DAILY B12 Active 1,000 mcg Tablet,Chewable 1,000 mcg PO DAILY Primary Care Provider: Maddie Mccray Referrals: Maddie Mccray DO [Primary Care Provider] - Disposition Disposition: Home, Self Care
[2023-02-02] MEDS: Potassium Chloride Oral Tablet 20 MEQ 40 MEQ PO (08:24)
[2023-02-02 08:48] VITALS: BP 138/74; PULSE 76; RESP 15; O2SAT 96
== END 2023-02-02 08:49 | disposition home or self-care (01) ==
LOC: ED 08:06
PROVIDERS: Emergency Provider Student in an Organized Health Care Education/Training Program; PCP Family Medicine; Visit Provider Student in an Organized Health Care Education/Training Program
DX: R00.2 Palpitations (principal); M81.0 Age-related osteoporosis without current pathological fracture; E87.6 Hypokalemia; Z99.89 Dependence on other enabling machines and devices; E03.9 Hypothyroidism, unspecified; K21.9 Gastro-esophageal reflux disease without esophagitis; G25.81 Restless legs syndrome; F32.A Depression, unspecified; Z79.899 Other long term (current) drug therapy; Z90.49 Acquired absence of other specified parts of digestive tract; Z90.710 Acquired absence of both cervix and uterus
CPT/HCPCS: 80048; 84484; 85025; 93005; 99284; A4216

== ENCOUNTER → 2023-02-10 | Outpatient (CLI) | payer OTHER, SELFPAY ==
[2023-02-10 12:27] LABS: Anion Gap 4 (5-15); BUN 16 mg/dL (7-18); BUN/Creat Ratio 20.6 RATIO (10-20); Calcium,Total 8.9 mg/dL (8.5-10.1); Chloride 106 mmol/L (98-107); Creatinine, Serum 0.78 mg/dL (0.55-1.02); EST Glomerular Filtration Rate 81 mL/min (>60); Est Glom Filt Rate - Afr Amer 98 mL/min (>60); Glucose 100 mg/dL (74-106); Sodium Level 138 mmol/L (136-145)
[2023-02-10 12:32] LABS: Vitamin D,25 Hydroxy 62.6 ng/mL
== END | disposition home or self-care (01) ==
LOC: BFHLAB 10:42
PROVIDERS: Internal Medicine Endocrinology, Diabetes & Metabolism; PCP Nurse Practitioner Family; Referring Provider Nurse Practitioner Family; Visit Provider Nurse Practitioner Family
DX: E87.6 Hypokalemia (principal); E55.9 Vitamin D deficiency, unspecified
CPT/HCPCS: 36415; 80048; 82306

== ENCOUNTER 2023-03-04 09:52 | Outpatient (CLI) | payer OTHER, SELFPAY ==
[2023-03-04 10:16] VITALS: BP 177/53; PULSE 66; RESP 16; TEMP 36.2; O2SAT 99; BMI 52.4
[2023-03-04] MEDS: DENOSUMAB 60 MG/ML SC (10:29)
== END 2023-03-04 09:53 | disposition home or self-care (01) ==
LOC: MEDOUTP 09:52
PROVIDERS: PCP Nurse Practitioner Family; Referring Provider Internal Medicine Endocrinology, Diabetes & Metabolism; Visit Provider Internal Medicine Endocrinology, Diabetes & Metabolism
DX: M81.0 Age-related osteoporosis without current pathological fracture (principal)
CPT/HCPCS: 96372; J0897

== ENCOUNTER 2023-03-28 09:00 | Outpatient (RCR) | payer OTHER, SELFPAY ==
--- NOTE | 2023-03-02 09:55 | HP.PTEVAL_ITS ---
Patient's Visit Information Visit Information Visit Information: ELICEO REY is a 57 year old F referred to Physical Therapy by WAYNE MIMS with a diagnosis of R thoracic pain. Date of Evaluation: 03/02/23 Physical Therapist: Agusto Joe, DPT, OCS, CSCS Visit Plan Frequency: 2-3x /Week Duration: 4-6 Weeks Plan: 2-3x/week for 3-6 weeks starting with pool ex for L rotation thoracic, core and UE and LE strength and CV to I in pool or matching HEP. recheck in 3 weeks for progression to home, gym, community pool or manual STM for thoracic if needed. has TENS at home and is to use. Subjective Subjective: Lashay is a mess. Needs back PT. Pain is in backfor a week and half for no reason. Had similar pain 3 months ago and [employer] said she had osteophytes on spine after x ray. Dr. Mims sent for PT at the time. Prednisone helped the first time. Pain is R sidxed thoracic and around rib cage. Pain is constant almost, some relief with ice pack or TENS unit. Lying in bed is painful but better with HOB elevated. Hard to get going in am. Worse with no movement. Too much standing and walking make her worse. Lifting hurts. Disability from LB. Basic ADLS all getting done, cleaning and cooking are getting done, avoids vaccuming due to pain. No regular exercises, Hobbies include: puzzles, crafting, and is doing these. H/o LBP, feet hurt, psoriatic arthritis. Pain R thoracic: Pain Intensity (Out of 10): 6 Pain Intensity Range: 6 and 9 Objective Objective: obese adn walks with slight trendelnberg but I without AD safely. Trasnfers chair and bed I. Steps with rail reciprocal lacking FW weight shift. spinal AROM is limited in flexion and extension with pain end range extension not improving with repeated motion., rotations are slightly painful to L but n ot R. LE AROM WFL, flexibility in LE is good. UE AROM WFL., some pain with resisted R EU flexion. Some pain with L hip ext prone resisted in throacic R area. Tender to touch R thoracic parapsinals and spinal PA pressure in thoracic area but not on ribs R. reflexes 2/3 patella adnd achilles R, sensation feet mildly decreased but able. Strength hips 3+/5, knees 4- and ankles 4/5. - SLR, slump test. Balance/Special Test Scores Oswestry Low Back Score: 16 Goals Goal 1:: Put on bra without pain Goal Time Frame: 4-6 Weeks Goal 2:: Pain in thoracic are abolished 90% Goal Time Frame: 4-6 Weeks Goal 3:: I appropriate pool or Home ex to limit future problems Goal Time Frame: 4-6 Weeks Goal 4:: oswestry back 5 or better. Goal Time Frame: 4-6 Weeks Rehabilitation Potential Physical Therapy Diagnosis: interrupted sleep and activity due to R thoracic pain with poorly managed physical being. Rehabilitation Potential: Fair Anticipated Interventions Patient/Client Instruction: Educate patient on: Condition For the Purpose of:: To decrease pain, To increase ROM, To improve nutrient delivery to tissue, To improve muscle performance and motor function, To increase tolerance to activity/condition/position and To improve ability of physical actions for home/community/work/leisure Therapeutic Exercise to Include: Strength training, Postural training, In an aquatic setting , Passive ROM and Active ROM For the Purpose of:: To decrease pain, To increase ROM, To improve nutrient delivery to tissue, To improve muscle performance and motor function and To increase tolerance to activity/condition/position Manual Therapy Techniques to Include: Soft tissue mobilization For the Purpose of:: To decrease pain Text: Thank you for the opportunity to evaluate your patient. For Medicare and Medicare HMO plans, please review the plan of care and approve it. It will need to be FAXED BACK to us at [phone] for Medicare purposes. For Medicare only, by signing this I certify the plan of care. Please let me know if there are questions or concerns regarding this plan of care. Physician Signature: Date:
--- NOTE | 2023-03-28 09:13 | HP.PTDCSUM_ITS ---
Discharge Summary D/C summary: It has been my pleasure to treat ELICEO REY referred by WAYNE MIMS, with the diagnosis of R thoracic pain for a total of 8 visit(s). Discharge Date: 03/28/23 Please see the following information for a summary of their discharge status. Subjective Subjective: Thoracic Back pain is gone. It is resolved for now. No pain in a couple weeks. Activities are pretty normal at home. vaccuumed the other day with a newer vaccuum 2-3# and did well. Pool treated her well. Had two steroid injections(knee and arm) 2 weeks ago. for psoriatic OA). 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 In the meantime, Caridad gave HEP that she can do at home. No f/u with doctor. Pain R thoracic: Pain Intensity (Out of 10): 0 LBP: Pain Intensity (Out of 10): 4 Overall Improvement % Improvement: 100 Objective Objective/Function: Good aROM spine without limitations today adn no increased pain. Walking normal without evidence of pain. Goals Goal 1:: Put on bra without pain Goal Progress: Goal Met Goal 2:: Pain in thoracic are abolished 90% Goal Progress: Goal Met Goal 3:: I appropriate pool or Home ex to limit future problems Goal Progress: Goal Met Goal 4:: oswestry back 5 or better. Goal Progress: Goal Met Plan Plan: d/c D/C Information d/c sentence: If there are questions or concerns regarding this patient's physical therapy, please feel free to call me at [phone]. Thank you for the referral of this patient. Sincerely, Agusto Joe, DPT, OCS, CSCS Balance/Gait/Functional tests Balance/Special Test Scores Oswestry Low Back Score: 4 Improvement % Improvement: 100
== END 2023-03-28 19:00 | disposition home or self-care (01) ==
LOC: PT 09:00
PROVIDERS: PCP Nurse Practitioner Family
DX: M54.6 Pain in thoracic spine (principal)
CPT/HCPCS: 97113; 97162; 97164

== ENCOUNTER → 2023-04-05 | Outpatient (CLI) | payer OTHER, SELFPAY ==
--- NOTE | 2023-04-05 15:36 | RAD_ITS ---
STUDY: X-RAY CHEST REASON FOR EXAM: Female, 57 years old. COUGH, SOB,WEAKNESS TECHNIQUE: PA and lateral COMPARISON: May 19, 2021 FINDINGS: Elevated right hemidiaphragm and minor basilar atelectasis.. There is no demonstrated pleural abnormality. Normal size heart. Normal mediastinum and buck. Normal visualized pulmonary arteries. Normal visualized aortic arch and descending thoracic aorta. Dorsal spine demonstrates degenerative changes. Normal visualized ribs, clavicles, and shoulders. There is no demonstrated abnormality of the visualized soft tissue structures of the upper abdomen. RAD/Chest PA and Lateral IMPRESSION: Elevated right hemidiaphragm and minor basilar atelectasis. No focal infiltration or gross pulmonary edema. Electronically Signed: Barrington Espinoza MD at 18:10 EST ,
[2023-04-05 18:03] LABS: Absolute Lymphocyte Count 2.54 X10^3/uL (0.83-4.51); Absolute Neutrophil Count 4.2 X10^3/uL (2.0-7.7); Basophil# 0.08 X10^3/uL; Eosinophil# 0.29 X10^3/uL; Eosinophils% 3.8 % (0-5); Hematocrit 43.3 % (37-47); Hemoglobin 13.6 g/dL (12.0-15.0); Lymphocyte # 2.54 X10^3/ul (0.83-4.51); Lymphocyte % 32.9 % (19-41); Mean Corp Hgb Conc 31.4 g/dL (32-36); Mean Corpuscular Hgb 32.4 pg (27.0-32.0); Mean Corpuscular Volume 103.1 fL (81-99); Mean Platelet Vol. 8.6 fl (6.2-12.0); Monocyte# 0.65 X10^3/uL; Monocyte% 8.4 % (0-10); NRBC Flagged by Analyzer 0 % (0-5); Neutrophil # 4.15 X10^3/uL (2.7-7.7); Neutrophil % 53.6 % (47-70); Platelet Count 317 K/mm3 (150-450); RBC Distribution Width CV 13.1 % (11.6-14.6); RBC Distribution Width SD 49.1 fl (35.1-43.9); White Blood Count 7.7 K/mm3 (4.4-11.0)
[2023-04-05 18:21] LABS: ALB/GLOB Ratio 0.9 RATIO (0.9-2.4); AST(SGOT) 22 U/L (15-37); Alanine Aminotransfer ALT/SGPT 28 U/L (13-56); Albumin, Serum 3.5 g/dL (3.2-5.0); Alkaline Phosphatase 101 U/L (45-117); Anion Gap 3 (5-15); BUN 23 mg/dL (7-18); BUN/Creat Ratio 24.2 RATIO (10-20); CRP < 2.90 mg/L (0.0-3.0); Calcium,Total 9.6 mg/dL (8.5-10.1); Chloride 109 mmol/L (98-107); Creatinine, Serum 0.95 mg/dL (0.55-1.02); EST Glomerular Filtration Rate 64 mL/min (>60); Est Glom Filt Rate - Afr Amer 78 mL/min (>60); Globulin 3.7 g/dL (2.2-4.2); Glucose 130 mg/dL (74-106); Potassium 3.9 mmol/L (3.5-5.1); Protein, Total 7.2 g/dL (6.4-8.2); Sodium Level 139 mmol/L (136-145)
[2023-04-05 18:27] LABS: Erythrocyte Sedimentation Rate 27 mm/hr (0-30)
== END | disposition home or self-care (01) ==
LOC: MTLAB 15:34
PROVIDERS: PCP Nurse Practitioner Family; Referring Provider Family Medicine; Visit Provider Family Medicine
DX: R05.9 Cough, unspecified (principal); R53.1 Weakness; R06.02 Shortness of breath
CPT/HCPCS: 36415; 71046; 80053; 85025; 85652; 86140

== ENCOUNTER 2023-05-10 09:30 | Outpatient (RCR) | payer OTHER, SELFPAY ==
--- NOTE | 2023-04-13 08:48 | HP.PTEVAL ---
Patient's Visit Information Visit Information Visit Information: ELICEO REY is a 57 year old F referred to Physical Therapy by WAYNE MIMS with a diagnosis of LBP with L sciatica. Date of Evaluation: 04/13/23 Physical Therapist: Honorio Denny, PT, ATC Visit Plan Frequency: 2-3x /Week Duration: 4-6 Weeks Plan: Aquatic therapy consisting of core stab ex's, B LE stretching and strengthening, and HEP Subjective Subjective: Pt reports she injured her LB approximately 2 weeks ago. Pt reports she attempted to cross her L leg over the other leg which resulted in a popping sensation in the right LB region. Pt reports she experienced severe pain on the R hip region and in her glute region. Pt reports since that injury, the pain has shifted to her L LB region. Pt reports her pain on the R glute region is localized along her gluteal cleft region. Pt reports her LB pain radiates into the anterior L thigh, and she describes her pain as a hot poker sensation. Pt denies PMHx of this type of pain. Pt notes she did have xrays which revealed a pelvic ring fracture. Pt also notes there are degenerative changes throughout her LB. Pt notes prolonged standing and walking increases her L LE sx's. Pt reports sitting down will help to decrease her pain. Pt reports sleep difficulty at this time secondary to pain. Pt notes her R knee has the sensation of wanting to give out on her on occasion, which is why she prefers to ambulate with a rollator at this time. Pain R glute region: Pain Intensity (Out of 10): 3 Pain Intensity Range: 9 L low back: Pain Intensity (Out of 10): 5 Pain Intensity Range: 9 Objective Objective: Neuro: L L4-5 dermatomes are hyposensitive to light touch. All other B LE sensation is WNL to light touch. B patellar reflex 2/3 MMT: R hip flexion and knee flex= 4-/5 and are painful with testing. R hip abduction 4/5 and painful. All other B LE MMT 5/5 throughout ROM: Pt is WNL in all planes with no significant deviations Repeated movements: RFIS x 4 reps increased R gluteal pain. CECELIA x 5 reps increased L gluteal pain. SKTC x 3 ea LE had NE on R LE, and cramping of L thigh Balance/Special Test Scores Oswestry Low Back Score: 24 Goals Goal 1:: Decrease LBP x 50% to aid with increasing tolerance for ambulation Goal Time Frame: 4-6 Weeks Goal 2:: Decrease the frequency and intensity of L LE radiculopathy x 50% to aid with increasing tolerance for standing Goal Time Frame: 4-6 Weeks Goal 3:: I with HEP Goal Time Frame: 4-6 Weeks Rehabilitation Potential Physical Therapy Diagnosis: Pt has L LBP, L LE radiculopathy, and intolerance for prolonged standing secondary to degenerative changes in the L/S Rehabilitation Potential: Good Anticipated Interventions Patient/Client Instruction: Educate patient on: Condition and Plan of Care For the Purpose of:: To improve self management Therapeutic Exercise to Include: Strength training, Endurance training, Postural training, In an aquatic setting , Active ROM and Dynamic Lumbar Stabilization For the Purpose of:: To decrease pain, To improve muscle performance and motor function and To increase tolerance to activity/condition/position Text: Thank you for the opportunity to evaluate your patient. For Medicare and Medicare HMO plans, please review the plan of care and approve it. It will need to be FAXED BACK to us at [phone] for Medicare purposes. For Medicare only, by signing this I certify the plan of care. Please let me know if there are questions or concerns regarding this plan of care. Physician Signature: Date:
--- NOTE | 2023-05-12 10:40 | HP.PTDCSUM ---
Discharge Summary D/C summary: It has been my pleasure to treat ELICEO REY referred by WAYNE MIMS, with the diagnosis of LBP with L sciatica for a total of 9 visit(s). Discharge Date: Please see the following information for a summary of their discharge status. Subjective Subjective: I really don't feel any better. The numbness in my legs is terrible. Pain R glute region: Pain Intensity (Out of 10): 7 L low back: Pain Intensity (Out of 10): 5 BLEs: Pain Intensity (Out of 10): 7 Overall Improvement % Improvement: 0 Objective Objective/Function: LBP ranges from 5-9/10 with radiculopathy, L LE pain has lessened, but the numbness has worsened Pt is I with HEP Goals Goal 1:: Decrease LBP x 50% to aid with increasing tolerance for ambulation Goal Progress: Not Progressing Goal 2:: Decrease the frequency and intensity of L LE radiculopathy x 50% to aid with increasing tolerance for standing Goal Progress: Not Progressing Goal 3:: I with HEP Goal Progress: Goal Met Plan Plan: Discontinue secondary to lack of progress, RTD D/C Information d/c sentence: If there are questions or concerns regarding this patient's physical therapy, please feel free to call me at [phone]. Thank you for the referral of this patient. Sincerely, Honorio Denny, PT, ATC Balance/Gait/Functional tests Balance/Special Test Scores Oswestry Low Back Score: 23 Improvement % Improvement: 0
== END 2023-05-10 19:00 | disposition home or self-care (01) ==
LOC: PT 09:30
PROVIDERS: PCP Nurse Practitioner Family
DX: M47.26 Other spondylosis with radiculopathy, lumbar region (principal); M48.062 Spinal stenosis, lumbar region with neurogenic claudication; M43.16 Spondylolisthesis, lumbar region
CPT/HCPCS: 97113; 97161

== ENCOUNTER → 2023-05-26 | Outpatient (CLI) | payer OTHER, SELFPAY ==
[2023-05-26 17:46] LABS: Absolute Lymphocyte Count 1.13 X10^3/uL (0.83-4.51); Absolute Neutrophil Count 7.4 X10^3/uL (2.0-7.7); Basophil# 0.04 X10^3/uL; Basophil% 0.4 % (0-1); Eosinophil# 0.03 X10^3/uL; Eosinophils% 0.3 % (0-5); Hematocrit 39.7 % (37-47); Hemoglobin 12.4 g/dL (12.0-15.0); Lymphocyte # 1.13 X10^3/ul (0.83-4.51); Lymphocyte % 12.4 % (19-41); Mean Corp Hgb Conc 31.2 g/dL (32-36); Mean Corpuscular Hgb 31.7 pg (27.0-32.0); Mean Corpuscular Volume 101.5 fL (81-99); Mean Platelet Vol. 9.3 fl (6.2-12.0); Monocyte# 0.42 X10^3/uL; Monocyte% 4.6 % (0-10); NRBC Flagged by Analyzer 0 % (0-5); Neutrophil # 7.41 X10^3/uL (2.7-7.7); Neutrophil % 81.4 % (47-70); Platelet Count 328 K/mm3 (150-450); RBC Distribution Width CV 13.6 % (11.6-14.6); RBC Distribution Width SD 50.6 fl (35.1-43.9); Red Blood Count 3.91 M/mm3 (4.2-5.4); White Blood Count 9.1 K/mm3 (4.4-11.0)
[2023-05-26 18:10] LABS: BNP,B-Type NATRIURETIC PEPTIDE 39.7 pg/mL (0-100)
[2023-05-26 19:03] LABS: ALB/GLOB Ratio 0.9 RATIO (0.9-2.4); AST(SGOT) 19 U/L (15-37); Alanine Aminotransfer ALT/SGPT 36 U/L (13-56); Albumin, Serum 3.2 g/dL (3.2-5.0); Alkaline Phosphatase 111 U/L (45-117); Anion Gap 8 (5-15); BUN 22 mg/dL (7-18); BUN/Creat Ratio 27.5 RATIO (10-20); Calcium,Total 8.6 mg/dL (8.5-10.1); Chloride 105 mmol/L (98-107); EST Glomerular Filtration Rate 78 mL/min (>60); Est Glom Filt Rate - Afr Amer 95 mL/min (>60); Free T3 2.1 pg/mL (2.18-3.98); Globulin 3.4 g/dL (2.2-4.2); Glucose 192 mg/dL (74-106); Potassium 4.3 mmol/L (3.5-5.1); Protein, Total 6.6 g/dL (6.4-8.2); Sodium Level 138 mmol/L (136-145); T4 Free Direct 0.87 ng/dL (0.76-1.46); Thyroid Stim Hormone (TSH) 0.47 uIU/mL (0.358-3.74)
== END | disposition home or self-care (01) ==
LOC: BFHLAB 14:21
PROVIDERS: PCP Family Medicine; Visit Provider Family Medicine
DX: E03.9 Hypothyroidism, unspecified (principal); I50.82 Biventricular heart failure; I50.33 Acute on chronic diastolic (congestive) heart failure; I11.0 Hypertensive heart disease with heart failure; E11.9 Type 2 diabetes mellitus without complications; Z51.81 Encounter for therapeutic drug level monitoring; R60.9 Edema, unspecified
CPT/HCPCS: 36415; 80053; 83036; 83880; 84439; 84443; 84481; 85025

== ENCOUNTER → 2023-06-14 | Outpatient (CLI) | payer OTHER, SELFPAY ==
[2023-06-14 13:18] LABS: ALB/GLOB Ratio 0.9 RATIO (0.9-2.4); AST(SGOT) 17 U/L (15-37); Alanine Aminotransfer ALT/SGPT 32 U/L (13-56); Albumin, Serum 3.2 g/dL (3.2-5.0); Alkaline Phosphatase 110 U/L (45-117); Anion Gap 5 (5-15); BUN 16 mg/dL (7-18); BUN/Creat Ratio 19.6 RATIO (10-20); Calcium,Total 10.2 mg/dL (8.5-10.1); Chloride 103 mmol/L (98-107); Creatinine, Serum 0.82 mg/dL (0.55-1.02); EST Glomerular Filtration Rate 77 mL/min (>60); Est Glom Filt Rate - Afr Amer 93 mL/min (>60); Globulin 3.6 g/dL (2.2-4.2); Glucose 110 mg/dL (74-106); Magnesium 2.1 mg/dL (1.6-2.6); Potassium 4.1 mmol/L (3.5-5.1); Protein, Total 6.8 g/dL (6.4-8.2); Sodium Level 138 mmol/L (136-145)
== END | disposition home or self-care (01) ==
LOC: MTLAB 10:49
PROVIDERS: PCP Family Medicine; Referring Provider Family Medicine; Visit Provider Family Medicine
DX: E87.6 Hypokalemia (principal); Z51.81 Encounter for therapeutic drug level monitoring
CPT/HCPCS: 36415; 80053; 83735

== ENCOUNTER → 2023-06-30 | Outpatient (CLI) | payer OTHER, SELFPAY ==
--- NOTE | 2023-06-30 09:41 | VDLE_ITS ---
Reason For Study: edema RIGHT LEFT GSV is normal. GSV is normal. CFV is compressible, spontaneous, phasic, CFV is compressible, spontaneous, phasic, competent and demonstrates normal competent, and demonstrates normal augmentation. augmentation. FV is compressible, spontaneous, phasic, FV is compressible, spontaneous, phasic, competent and demonstrates normal competent and demonstrates normal augmentation. augmentation. POP V is compressible, spontaneous, phasic, POP V is compressible, spontaneous, phasic, competent and demonstrates normal competent and demonstrates normal augmentation. augmentation. T/P Trunk is compressible. T/P Trunk is compressible. PTV is compressible. PTV is compressible. RT PerV is compressible. LT PerV is compressible. SFJ is competent and measures .85 cm. SFJ is competent and measures .89 cm. GSV proximal thigh measures .44 x .51 cm. GSV proximal thigh measures .56 x .54 cm. GSV at knee measures .41 x .39 cm. GSV at knee measures .42 x .46 cm. GSV above knee is competent. GSV INCOMPETENT throughout for greater than GSV below knee is INCOMPETENT for greater 0.5 seconds. than 0.5 seconds. SSV proximal calf is INCOMPETENT for greater SSV proximal calf is competent and than 0.5 seconds and measures .47 x .47 cm. measures .3 x .34 cm. ASV mid calf is INCOMPETENT for greater than ASV mid calf is INCOMPETENT for greater than 0.5 seconds and measures .33 x .34 cm. 0.5 seconds and measures .34 cm. Procedure This is a venous duplex using B-mode, color flow and spectral Doppler. Exam performed in department. The exam was diagnostic. VL/Venous Duplex US - [place] Extrem Interpretation Summary Deep veins of the bilateral lower extremities are patent and compressible segme ntally. There is no evidence of bilateral lower extremity deep vein thrombosis. The bilateral great saphenous veins appear patent and compressible segmentally. Positive for reflux in the right great saphenous vein below the knee, accessory saphenous vein Positive for reflux in the left great saphenous vein throughout, small saphenou s vein, accessory saphenous vein. Ordering Physician: Cheko Jensen Performed By: Douglas Benito RVT
== END | disposition home or self-care (01) ==
LOC: CVS 09:40
PROVIDERS: PCP Family Medicine; Referring Provider Family Medicine; Visit Provider Family Medicine
DX: R60.0 Localized edema (principal)
CPT/HCPCS: 93970

== ENCOUNTER → 2023-07-07 | Outpatient (CLI) | payer OTHER, SELFPAY ==
--- NOTE | 2023-07-07 07:48 | ECHOCS_ITS ---
Reason For Study: EDEMA Procedure This was a 2D Doppler, Color Flow transthoracic echocardiogram. The study was technically difficult. Due to body habitus. Exam performed in department. Left Ventricle Normal LV size. The estimated ejection fraction is 55 %. No evidence for diastolic dysfunction. No regional wall motion abnormalities noted. Right Ventricle Normal RV size. Normal systolic function. Atria The left atrium is mildly enlarged. Normal right atrium. No doppler evidence for ASD. Mitral Valve There is no mitral valve stenosis. No mitral valve insufficiency. Tricuspid Valve There is no tricuspid stenosis. Trivial tricuspid valve insufficiency. Unable to estimate RV systolic pressure due to insufficient tricuspid regurgitant envelope. Aortic Valve Trisinus/trileaflet aortic valve. There is no aortic stenosis. No aortic valve insufficiency. Pulmonic Valve There is no pulmonic valvular stenosis. No pulmonic valve insufficiency. Great Vessels Normal aortic root. Pericardium/Pleural No pericardial effusion. Medication 22 gauge I.V. with prn adaptor inserted into right arm. Diluted definity 2.0ml given slow IV push to enhance endocardial definition. MMode/2D Measurements & Calculations LVIDd: 4.4 cm IVSd: 1.2 cm Ao root diam: 3.2 cm LVIDs: 3.1 cm LVPWd: 0.96 cm RVDd: 3.4 cm FS: 29.0 % LAV(MOD-bp): 101.9 ml LVAd ap4: 39.5 cm2 SV(MOD-sp4): 94.6 ml LAV(MOD-bp) Indexed: 40.6 ml/m2 LVLd ap4: 9.1 cm LAV(MOD-sp2): 92.0 ml EDV(MOD-sp4): 141.1 ml LAV(MOD-sp4): 100.2 ml EDV(sp4-el): 145.6 ml LVAs ap4: 19.7 cm2 LVLs ap4: 7.0 cm ESV(MOD-sp4): 46.4 ml ESV(sp4-el): 47.0 ml EF(MOD-sp4): 67.1 % EF(sp4-el): 67.7 % SV(sp4-el): 98.6 ml LA A4 area: 26.8 cm2 LA dimension(2D): 4.5 cm RA A4 area: 13.6 cm2 TAPSE: 3.2 cm Time Measurements MV dec time: 0.16 sec Doppler Measurements & Calculations MV E max xander: 77.2 cm/sec Lat Peak E' Xander: 13.9 cm/sec Med Peak E' Xander: 9.9 cm/sec MV A max xander: 71.9 cm/sec E/E' lat: 5.6 E/E' med: 7.8 MV E/A: 1.1 MV V2 max: 90.2 cm/sec MV P1/2t max xander: 80.3 cm/sec Ao V2 max: 118.0 cm/sec MV max P.3 mmHg MV P1/2t: 50.4 msec Ao max P.6 mmHg MV V2 mean: 54.1 cm/sec MV dec slope: 466.7 cm/sec2 Ao V2 mean: 79.8 cm/sec MV mean P.4 mmHg MVA(P1/2t): 4.4 cm2 Ao mean P.8 mmHg MV V2 VTI: 22.0 cm Ao V2 VTI: 20.5 cm AV (velocity ratio): 0.98 LV V1 max: 92.8 cm/sec PA V2 max: 102.0 cm/sec TR max xander: 232.3 cm/sec LV V1 max P.4 mmHg PA V2 mean: 66.4 cm/sec TR max P.6 mmHg LV V1 mean P.0 mmHg PA V2 VTI: 21.2 cm LV V1 mean: 67.7 cm/sec LV V1 VTI: 20.2 cm ECHO/Echo Complete W/ Contrast Interpretation Summary The estimated ejection fraction is 55 %. No evidence for diastolic dysfunction. The left atrium is mildly enlarged. Ordering Physician: Maddie Mccray Referring Physician: Maddie Mccray Performed By: Neeru Green, REGINO, RVT
== END | disposition home or self-care (01) ==
LOC: CVS 07:48
PROVIDERS: PCP Family Medicine; Referring Provider Family Medicine; Visit Provider Family Medicine
DX: R60.9 Edema, unspecified (principal); I50.33 Acute on chronic diastolic (congestive) heart failure
CPT/HCPCS: 93306; Q9957; A4216; C8929

== ENCOUNTER 2024-01-31 11:17 | Day surgery (SDC) | payer MEDICARE, SELFPAY ==
[2024-01-31 11:36] VITALS: BP 132/78; PULSE 82; RESP 16; TEMP 36.7; O2SAT 99; BMI 52.9
[2024-01-31 12:03] LABS: Bedside Glucose 124 mg/dL (74-106)
--- NOTE | 2024-01-31 12:30 | COLBX_PTH ---
PATIENT: ELICEO REY LOC: EN U#:[id number] AGE/SX: 58/F ROOM: RE01/31/[address]: Dr. Pietro Desai DO : 1965 BED: DIS: 01/31/2024 SPEC #: [id number] RECD: 01/31/24 17:34 STATUS: BHARATHI REDuc #: [id number] BBOBY: 01/31/24 12:[address]: Pietro Desai DEPT: SURGICAL PATHOLOGY RECD BY: Odalis Paula ENTERED: 02/01/24 09:34 SP TYPE: COLON BX OTHR DR: Dr. Maddie Mccray DO Tissues: Pyloric sphincter Procedures: Special Stain Group I Surgery Specimen Level IV Alcian Blue/PAS (control) HEADER OPERATION: Colonoscopy, EGD with biopsy PRE-OP DIAGNOSIS: Gastroesophageal reflux disease TISSUE SUBMITTED: Pyloric sphincter biopsy MICROSCOPIC DIAGNOSIS Pyloric sphincter, biopsy: Fragments of gastric mucosa with ulceration, acute and chronic inflammation and granulation tissue reaction. Focal intestinal metaplasia (goblet cell metaplasia). See comment. 02/02/2024 COMMENT Alcian blue/PAS stain with matched control is used in the evaluation of the specimen. The results of immunohistochemistry for Helicobacter pylori and P53 and Ki-67 will be reported separately ([id number]). MICROSCOPIC DESCRIPTION Slides are reviewed. GROSS DESCRIPTION Received in fixative is one container labeled with the patient's name and designated Pyloric sphincter biopsy. The specimen consists of multiple irregular fragments of light correa soft tissue that in aggregate measure 0.8 x 0.4 x 0.1 cm. The specimen is totally submitted in one cassette. 02/01/2024 TC:3 CPT:22667,94211
--- NOTE | 2024-01-31 12:30 | IMM_PTH ---
PATIENT: ELICEO REY LOC: EN U#:[id number] AGE/SX: 58/F ROOM: RE01/31/[address]: Dr. Pietro Desai DO : 1965 BED: DIS: 01/31/2024 SPEC #: [id number] RECD: 02/01/24 08:08 STATUS: BHARATHI REQ #: [id number] BOBBY: 01/31/24 12:[address]: Pietro Desai DEPT: IMMUNOHISTOCHEMISTRY RECD BY: Everette Stratton ENTERED: 02/01/24 08:08 SP TYPE: IMMUNO OTHR DR: Dr. Maddie Mccray DO Tissues: Pyloric sphincter Procedures: H Pylori (initial) PHYSICIAN & INSTITUTION [place] [address] SPECIMEN INFORMATION: Tissue Source: Pyloric sphincter biopsy Clinical Info: Gastroesophageal reflux disease Specimen Number: [id number] CPT code: 71667,49306e8 METHODOLOGY: Deparaffinized sections of prefer/formalin-fixed tissue or PAP/DQ stained slides are incubated with monoclonal/polyclonal antibodies/oligonucleotide probes. Localization is made via biotin free immunoperoxidase method. Appropriate controls are performed and reacted as expected. Results on target cell population are indicated in the following table: RESULTS: ANTIBODY / CLONE RESULT H Pylori (polyclonal) negative P53 (DO-7) negative (null pattern) Ki-67 (30-9) positive, low These tests were developed and their performance characteristics determined by [facility]. They may not have been cleared or approved by the U.S. Food and Drug Administration. The FDA has determined that such clearance or approval is not necessary. The above immunohistochemical/dualISH markers are ordered and reviewed by the Pathologist. INTERPRETATION: Pyloric sphincter, biopsy: Negative for Helicobacter pylori organisms. Negative for dysplasia. SJ.mr 02/03/2024
--- NOTE | 2024-01-31 12:31 | PCM.PRE.AN2 ---
ASA Classification* ASA Classification ASA Classification: 3 Assessment & Plan Anesthesia* Anesthesia Assessment Anesthesia Assessment: Discussed sedation and/or anesthesia options, risks, benefits, and alternatives with patient/parents/legal guardian/POA. Questions invited. The patient/parents/legal guardian/POA seems to understand and agrees to proceed with anesthesia plan. Reviewed the physical assessment, medical history, allergy history and patient home medications list prior to surgery/procedure/anesthetic and documented any changes. Performed airway and anesthesia risk assessments. Anesthesia Type Anesthesia Type: MAC History Source History Obtained from:: Patient and Chart Anesthesia Focused Assessment* Temperature: 98.1 F Pulse Rate: 82 Blood Pressure: 132/78 Respiratory Rate: 16 Pulse Ox: 99 Oxygen Delivery Method: Room Air Airway Assessment Mouth opens: >3 cm Mallampati Score: I Teeth Condition: Caps/Crowns (Patient has several crowns. They are all tight.) Neck Range of motion (ROM): Full ROM Focused Labs Anesthesia Preop lab: CBC WBC 9.1 K/mm3 (4.4-11.0) 05/26/23 14:24 RBC 3.91 M/mm3 (4.2-5.4) L 05/26/23 14:24 Hgb 12.4 g/dL (12.0-15.0) 05/26/23 14:24 Hct 39.7 % (37-47) 05/26/23 14:24 Plt Count 328 K/mm3 (150-450) 05/26/23 14:24 CHEMISTRY Potassium 4.1 mmol/L (3.5-5.1) 06/14/23 10:53 Sodium 138 mmol/L (136-145) 06/14/23 10:53 Magnesium 2.1 mg/dL (1.6-2.6) 06/14/23 10:53 Phosphorus 2.7 mg/dL (2.5-4.9) 05/05/21 14:07 BUN 16 mg/dL (7-18) 06/14/23 10:53 Creatinine 0.82 mg/dL (0.55-1.02) 06/14/23 10:53 Glucose 110 mg/dL (74-106) H 06/14/23 10:53 POC Glucose 124 mg/dL (74-106) H 01/31/24 11:36 TSH 0.47 uIU/mL (0.358-3.74) 05/26/23 14:24 COAG Pre-Assessment Diagnosis/Proposed Procedure Planned Operative Procedure(s): COLONOSCOPY/EGD Anesthesia History Anesthesia History - drapery operator: Anesthesia History - drapery operator Hx Hospitalization No 01/27/24 13:45 Any Problems With Anesthesia Yes: sob when awakening 01/27/24 13:45 Cholinesterase deficiency No 01/27/24 13:45 You/Your Family Experience No 01/27/24 13:45 fever (hyperthermia) with Relationship Recent Exposure to Contagious No 01/31/24 11:36 Disease Does patient have nerve No 01/27/24 13:45 stimulator Patient instructed to have device shut off --Does patient have Pacemaker No 01/31/24 11:36 or ICD? When Was Last Pacemaker Check QUESTION #4 FULL TEXT: You/Your Family Experience fever (hyperthermia) with Anesthesia Last Oral Intake Last Oral intake: Last Oral Intake NPO since 08:20 01/31/24 11:36 Meds taken in AM with sips of water? Meds patient instructed to take am of surgery Any additional information?: Yes NPO since: 08:20 (Patient finished prep at 820 this morning.) Meds taken in AM with sips of water?: Yes PONV PONV - drapery operator: PONV - drapery operator Female Yes 01/27/24 13:45 HX of Motion Sickness No 01/27/24 13:45 HX of N/V After Surgery No 01/27/24 13:45 Non-Smoker Yes 01/27/24 13:45 Duration of Surgery greater No 01/27/24 13:45 than 60 minutes Number of Risk Factors 2 01/27/24 13:45 PONV Score Moderate Risk 01/27/24 13:45 Height & Weight Height & Weight: Anesthesia: Height & Weight Height 5 ft 6 in 01/31/24 11:36 Weight: 148.778 kg 01/31/24 11:36 Body Mass Index (BMI) 52.9 01/31/24 11:36 Respiratory Assessment Respiratory Assessment - drapery operator: Respiratory Tract Infection Hx - drapery operator Hx Respiratory Tract Infection No 01/27/24 13:45 Any additional information?: Yes Hx Respiratory Tract Infection: Yes (Patient is currently being treated for a upper respiratory tract infection ) STOP Sleep Apnea STOP Sleep Apnea - drapery operator: STOP Sleep Apnea - drapery operator Hx Hypertension Yes 01/27/24 13:45 Hx Sleep Apnea Yes 01/27/24 13:45 CPAP Yes 01/27/24 13:45 BIPAP No 01/27/24 13:45 Do you snore loudly (louder than talking or can be heard Do you often feel tired/ fatigued/ sleepy during daytime? Has anyone observed you stop breathing during sleep? STOP Results Positive 01/27/24 13:45 QUESTION #5 FULL TEXT : Do you snore loudly (louder than talking or can be heard through closed doors)? 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 Specify any problems Hx of Preganancy in last 3 No 01/27/24 13:45 Months Nurse Filling Out Transfusion VCHRISTIN 01/27/24 13:45 & Questions: Date: 01/27/24 01/27/24 13:45 Time: 13:47 01/27/24 13:45 Patient unable to answer at this time (ie. confused, unrespo /Reproduction History /Reproductive History - drapery operator: /Reproductive Hx- drapery operator Hx Now Gestational Age (in weeks): EDC: Hx Hx Para Hx Section SAB No 01/27/24 13:45 PFSH Medical History Diabetes Obesity Osteoporosis PONV (postoperative nausea and vomiting) Injury of back Thyroid disease Walker as ambulation aid Ambulates with cane Psoriatic arthritis Low iron Fatty liver Easy bruising History of hiatal hernia Hoarseness Chronic cough History of edema History of stress test History of rheumatic fever Chronic pain Osteoporosis Non-smoker Sleep apnea Post-menopausal Anemia Depression History of diverticulitis Hypothyroidism Hiatal hernia GERD (gastroesophageal reflux disease) CPAP (continuous positive airway pressure) dependence Shortness of breath on exertion Rheumatic fever Asthma Pain aggravated by walking Edema Hx of echocardiogram MVP (mitral valve prolapse) Migraine headache Restless legs Back pain Wears glasses Narcolepsy Hx of psoriatic arthritis Heel spur Home Medications ?Medication ?Instructions ?Recorded ?Last Taken ?Type acetaminophen 500 mg tablet 1,000 mg PO DAILY pain 04/12/19 05/04/21 18:30 History 500 mg cetirizine 10 mg capsule 10 mg PO DAILY allergies 04/12/19 05/04/21 06:30 History 10 mg levothyroxine 100 mcg tablet 100 mcg PO DAILY thyroid 04/12/19 01/31/24 History pantoprazole 40 mg tablet,delayed 40 mg PO BID reflux 04/12/19 12/14/21 History release eplerenone 25 mg tablet 50 mg PO DAILY POTASSIUM SPARING 05/19/21 Unknown History WATER PILL potassium chloride 10 mEq 40 meq PO DAILY 05/19/21 Unknown History capsule,extended release duloxetine 20 mg capsule,delayed 20 mg PO QHS 12/11/21 Unknown History release (Cymbalta) duloxetine 60 mg capsule,delayed 60 mg PO BREAKFAST 12/11/21 Unknown History release (Cymbalta) gabapentin 100 mg capsule 300 mg PO QHS 02/02/22 Unknown History leflunomide 20 mg tablet 20 mg PO DAILY 02/02/22 Unknown History denosumab 60 mg/mL subcutaneous 60 mg subcut [id number] #1 mL 01/31/23 Unknown Rx syringe (Prolia) golimumab 12.5 mg/mL intravenous 12.5 mg IV .[id number] 03/04/23 Unknown History solution (Simponi ARIA) albuterol sulfate 2.5 mg/3 mL 2.5 mg inhalation Q4-6H PRN 12/21/23 Unknown History (0.083 %) solution for nebulization shortness of breath or wheezing celecoxib 200 mg capsule (Celebrex) 200 mg PO QDAY 12/21/23 Unknown History carvedilol 6.25 mg tablet 6.25 mg PO BID 01/27/24 01/31/24 07:30 History ergocalciferol (vitamin D2) 1,250 1,250 mcg PO QWEEK 01/27/24 Unknown History mcg (50,000 unit) capsule mometasone 200 mcg/actuation HFA 2 puff inhalation DAILY 01/27/24 Unknown History aerosol inhaler (Asmanex HFA) semaglutide 1 mg/dose (4 mg/3 mL) 1 mg subcut QWEEK 01/27/24 01/15/24 History subcutaneous pen injector (Ozempic) torsemide 10 mg tablet 10 mg PO DAILY 01/27/24 Unknown History pramipexole 1 mg tablet 1 mg PO 4XD restless legs 01/30/24 01/31/24 History Allergy/AdvReac Type Severity Reaction Status Date / Time latex Allergy Rash Verified 01/31/24 11:32 meperidine (From Demerol) AdvReac Vomiting Verified 01/31/24 11:32 minocycline AdvReac Other Verified 01/31/24 11:32 morphine AdvReac Vomiting Verified 01/31/24 11:32 spironolactone AdvReac Vomiting Verified 01/31/24 11:32 Sulfa (Sulfonamide AdvReac Other Verified 01/31/24 11:32 Antibiotics) Family History Mother Asthma Myocardial infarction Bowel disease Heart disease Thyroid disorder Father Arthritis AA (alcohol abuse) Depression Parkinsons Hypertension Sister Bowel disease Diabetes Thyroid disorder Surgical History Hx of surgical procedure History of foot surgery History of cholecystectomy History of vocal cord polypectomy Hx of sinus surgery Hx of dilation and curettage Hx of hernia repair History of Kirstin fundoplication Hx of hysterectomy Hx laparoscopic cholecystectomy History of History of carpal tunnel surgery of right wrist History of carpal tunnel surgery of left wrist History of tonsillectomy Status post epidural steroid injection Social History household members: spouse Smoking Status: Never smoker substance use type: does not use Review of Systems (Anesthesia) ROS Narrative System reviewed and no additional complaints, except as documented.
[2024-01-31 12:39] VITALS: BP 132/78; PULSE 82; RESP 16; TEMP 36.7; O2SAT 99
--- NOTE | 2024-01-31 12:48 | PCM.HP.BLA ---
History and Physical Date of Admission: 01/31/24 ELICEO REY, is a 58 F who presents to the office today for establishment with [facility]. Pt has a PMHx of GERD, osteoporosis, MVP, hypothyroidism, and back pain. She is here today for evaluation of GERD which has been present since childhood. She is s/p two Kirstin fundoplication surgeries. She takes pantoprazole 40 mg BID which provides some relief but she continues to have some breakthrough heartburn. She feels her heartburn has been worsening over the past couple of weeks and she is now having some problems with swallowing.She avoids raw fruits and vegetables which worsen her reflux and diarrhea. She has diarrhea but attributes this to starting ozempic about 6 weeks ago. This is manageable to her. She was seeing a GI in [place] but wanted to establish her care here. Her last colonoscopy was 5 years ago and last EGD 4 years ago. ROS Const Constitutional: No anorexia, fatigue, fever(s), weight change or sleep problems Eyes Eyes: No change in vision ENT ENT: Positive for difficulty swallowing; No abnormal hearing, mouth lesions, tongue swelling or throat swelling Resp Respiratory: No cough or shortness of breath Cardio Cardiology: No chest pain at rest, chest pain with exertion, shortness of breath or dyspnea on exertion Gastro GI: Positive for diarrhea, difficulty swallowing, nausea/dyspepsia and pain with swallowing Genitourinary-Female: No difficulty urinating or burning urination Musc Musculoskeletal: No joint pain, joint swelling, muscle weakness or decreased muscle mass Skin Skin: No hair loss in leg, yellowing of the eye, itchy eyes, rash, skin ulcer or skin swelling Neuro Neurology: No abnormal hearing, abnormal movements, confusion, unsteady gait/balance or memory loss Psych Psychiatric: No anxiety, No confusion and No memory loss Endo Endocrine: No fatigue or weight change Aller/Imm Allergy/Immunologic: No itchy eyes, throat swelling or tongue swelling Eulalio/Lymp Hematologic/Lymphatic: No easy bleeding, easy bruising or enlarged lymph nodes Exam Const General: cooperative and comfortable Nutritional Appearance: average body habitus and well nourished [facility] Head: normal to inspection Ears: hearing grossly normal bilaterally Nose: external nose normal Face and sinus: normal facial exam Eyes General: appearance normal, both eyes and all related structures Neck Neck: normal visual inspection Chest Chest palpation & inspection: normal inspection of the chest Resp Effort & Inspection: normal respiratory effort GI Inspection: normal to inspection Palpation: no hepatosplenomegaly Skin General: no rashes or lesions noted Neuro General: patient alert Extrem General: normal to inspection Psych Affect: normal affect Assessment and Plan Assessment and Plan (1) Gastroesophageal reflux disease: Status: Acute Plan: Pt is a 58 yo female here today for evaluation of refractory GERD. She has a long hx of GERD going all the way back to her childhood. She has had two Kirstin fundoplication surgeries and still continues to have reflux symptoms. Over the past couple of weeks she has noticed her heartburn worsening and now has some dysphagia and odynophagia. SHe takes a daily PPI and has for some time. She will need EGD to assess her refractory symptoms. I will also order a GES to rule out gastroparesis as the etiology of her reflux. Her last colonoscopy was 5 years ago with polyps so she will also undergo a colonoscopy. She is agreeable to this plan. -EGD and colonoscopy -GES -F/u Orders: Orders Gastric Emptying Study Today K21.9 - Gastro-esophageal reflux disease without esophagitis I have examined the patient and the H&P has been reviewed. There are no clinical changes since date of exam.
[2024-01-31 13:30] VITALS: BP 110/59; BP 132/78; PULSE 73; RESP 16; TEMP 36.3; O2SAT 99
--- NOTE | 2024-01-31 13:33 | PCM.POST.ANE ---
Anesthesia: Postop Eval I Current Vital Signs Temperature: 97.3 F Pulse Rate: 73 Blood Pressure: 134/60 Respiratory Rate: 16 Pulse Ox: 98 Oxygen Delivery Method: Room Air Assessment Airway patent: Yes Spontaneous unlabored respirations: Yes Mental status: Awake and Calm nausea: No Vomiting: No Anesthesia Complication: Yes Anesthesia Complication Comment:: IV infiltrated and patient awake before completion of colonoscopy Fluid Hydration Crystalloid volume administer (ml): 60 Total IV fluid infused: 60 Progress Note Anesthesia document: Postop Eval 1 completed: Yes
--- NOTE | 2024-01-31 13:34 | OP.CCLET_ITS ---
01/31/2024 Maddie Mccray [address] [place] [address] Re : Upper GI endoscopy procedure for Natalialec Culver Dear Dr. Mccray This procedure was performed on Wednesday, January 31, 2024. My impressions and recommendations are as follows: Impressions : - Small (< 5 mm) esophageal varices. - Multiple gastric polyps. - Gastric stenosis was found at the pylorus. Biopsied. - No gross lesions in the first portion of the duodenum. Recommendations : - Discharge patient to home. - Resume previous diet. - Continue present medications. - Await pathology results. - Ultrasound elastography of the liver to evaluate the small varices seen in the esophagus - Gastric emptying study My findings are described in the full procedure note, which is enclosed. If I can be of further assistance, please feel free to contact me at . Sincerely, Pietro Desai, 01/31/2024 1:34:03 PM This report has been signed electronically.
--- NOTE | 2024-01-31 13:34 | OP.EGD_ITS ---
Patient Name: Natali Culver Procedure Date: 01/31/2024 12:51 PM Date of : 1965 Age: 58 Procedure: Upper GI endoscopy Indications: Failure to respond to medical treatment Providers: Pietro Desai DO Referring MD: Pietro Desai DO Medicines: Monitored Anesthesia Care Patient Profile: This is a 58 year old female. Refer to note in patient chart for documentation of history and physical. Patient has symptoms of chronic dyspepsia, chronic heartburn and chronic nausea. Complications: No immediate complications. Procedure: Pre-Anesthesia Assessment: - Prior to the procedure, a History and Physical was performed, and patient medications and allergies were reviewed. The patient is competent. The risks and benefits of the procedure and the sedation options and risks were discussed with the patient. All questions were answered and informed consent was obtained. Patient identification and proposed procedure were verified by the physician in the pre-procedure area. Mental Status Examination: alert and oriented. Airway Examination: normal oropharyngeal airway and neck mobility. Respiratory Examination: clear to auscultation. CV Examination: normal. Prophylactic Antibiotics: The patient does not require prophylactic antibiotics. Prior Anticoagulants: The patient has taken no anticoagulant or antiplatelet agents except for NSAID medication. ASA Grade Assessment: II - A patient with mild systemic disease. After reviewing the risks and benefits, the patient was deemed in satisfactory condition to undergo the procedure. The anesthesia plan was to use monitored anesthesia care (MAC). Immediately prior to administration of medications, the patient was re-assessed for adequacy to receive sedatives. The heart rate, respiratory rate, oxygen saturations, blood pressure, adequacy of pulmonary ventilation, and response to care were monitored throughout the procedure. The physical status of the patient was re-assessed after the procedure. After obtaining informed consent, the endoscope was passed under direct vision. Throughout the procedure, the patient's blood pressure, pulse, and oxygen saturations were monitored continuously. The Colonoscope was introduced through the mouth, and advanced to the second part of duodenum. The upper GI endoscopy was accomplished without difficulty. The patient tolerated the procedure well. Scope In: 1:02:38 PM Scope Out: 1:07:52 PM Total Procedure Duration Time 0 hours 5 minutes 14 seconds Findings: Small (< 5 mm) varices were found in the lower third of the esophagus. They were less than 1 mm in largest diameter. Multiple 4 mm hyperplastic polyps with bleeding and stigmata of recent bleeding were found in the cardia and in the gastric fundus. A benign-appearing, intrinsic moderate stenosis was found at the pylorus. This was traversed. Biopsies were taken with a cold forceps for histology. Verification of patient identification for the specimen was done. Estimated blood loss was minimal. No gross lesions were noted in the first portion of the duodenum. Impression: - Small (< 5 mm) esophageal varices. - Multiple gastric polyps. - Gastric stenosis was found at the pylorus. Biopsied. - No gross lesions in the first portion of the duodenum. Recommendation: - Discharge patient to home. - Resume previous diet. - Continue present medications. - Await pathology results. - Ultrasound elastography of the liver to evaluate the small varices seen in the esophagus - Gastric emptying study Procedure Code(s): --- Professional --- 44984, Esophagogastroduodenoscopy, flexible, transoral; with biopsy, single or multiple CPT copyright 2021 [employer]. All rights reserved. The codes documented in this report are preliminary and upon 4th grade teacher review may be revised to meet current compliance requirements. Pietro Desai DO 01/31/2024 1:34:03 PM This report has been signed electronically. Number of Addenda: 0 Note Initiated On: 01/31/2024 12:51 PM
[2024-01-31 13:35] VITALS: BP 105/60; BP 132/78; BP 134/60; PULSE 73; PULSE 75; RESP 16; TEMP 36.3; O2SAT 98
--- NOTE | 2024-01-31 13:36 | OP.COLON_ITS ---
Patient Name: Natali Culver Procedure Date: 01/31/2024 1:08 PM Date of : 1965 Age: 58 Procedure: Colonoscopy Indications: Follow-up for history of adenomatous polyps in the colon Providers: Pietro Desai DO Referring MD: Pietro Desai DO Medicines: Monitored Anesthesia Care Patient Profile: This is a 58 year old female. Refer to note in patient chart for documentation of history and physical. Patient has symptoms of chronic dyspepsia, chronic heartburn and chronic nausea. Last Colonoscopy: 5 years ago. Complications: No immediate complications. Procedure: Pre-Anesthesia Assessment: - Prior to the procedure, a History and Physical was performed, and patient medications and allergies were reviewed. The patient is competent. The risks and benefits of the procedure and the sedation options and risks were discussed with the patient. All questions were answered and informed consent was obtained. Patient identification and proposed procedure were verified by the physician in the pre-procedure area. Mental Status Examination: alert and oriented. Airway Examination: normal oropharyngeal airway and neck mobility. Respiratory Examination: clear to auscultation. CV Examination: normal. Prophylactic Antibiotics: The patient does not require prophylactic antibiotics. Prior Anticoagulants: The patient has taken no anticoagulant or antiplatelet agents except for NSAID medication. ASA Grade Assessment: II - A patient with mild systemic disease. After reviewing the risks and benefits, the patient was deemed in satisfactory condition to undergo the procedure. The anesthesia plan was to use monitored anesthesia care (MAC). Immediately prior to administration of medications, the patient was re-assessed for adequacy to receive sedatives. The heart rate, respiratory rate, oxygen saturations, blood pressure, adequacy of pulmonary ventilation, and response to care were monitored throughout the procedure. The physical status of the patient was re-assessed after the procedure. After I obtained informed consent, the scope was passed under direct vision. Throughout the procedure, the patient's blood pressure, pulse, and oxygen saturations were monitored continuously. The Colonoscope was introduced through the anus and advanced to the terminal ileum. The colonoscopy was performed without difficulty. The patient tolerated the procedure well. The quality of the bowel preparation was adequate. Anatomical landmarks were photographed. Scope In: 1:10:01 PM Scope Withdrawal Time 0 hours 9 minutes 51 seconds Scope Out: 1:24:37 PM Total Procedure Duration Time 0 hours 14 minutes 36 seconds Findings: The perianal and digital rectal examinations were normal. Multiple small and large-mouthed diverticula were found in the recto-sigmoid colon and sigmoid colon. The exam was otherwise without abnormality on direct and retroflexion views. Impression: - Diverticulosis in the recto-sigmoid colon and in the sigmoid colon. - The examination was otherwise normal on direct and retroflexion views. - No specimens collected. Recommendation: - Discharge patient to home. - Resume previous diet. - Continue present medications. - Repeat colonoscopy in 5 years for surveillance. - Return to GI office. Procedure Code(s): --- Professional --- 59827, Colonoscopy, flexible; diagnostic, including collection of specimen(s) by brushing or washing, when performed (separate procedure) CPT copyright 2021 [employer]. All rights reserved. The codes documented in this report are preliminary and upon cocoa butter filter operator review may be revised to meet current compliance requirements. Pietro Desai DO 01/31/2024 1:35:49 PM This report has been signed electronically. Number of Addenda: 0 Note Initiated On: 01/31/2024 1:08 PM
--- NOTE | 2024-01-31 13:36 | OP.CCLET_ITS ---
01/31/2024 Maddie Mccray [address] [place] [address] Re : Colonoscopy procedure for Natali Culver Dear Dr. Mccray This procedure was performed on Wednesday, January 31, 2024. My impressions and recommendations are as follows: Impressions : - Diverticulosis in the recto-sigmoid colon and in the sigmoid colon. - The examination was otherwise normal on direct and retroflexion views. - No specimens collected. Recommendations : - Discharge patient to home. - Resume previous diet. - Continue present medications. - Repeat colonoscopy in 5 years for surveillance. - Return to GI office. My findings are described in the full procedure note, which is enclosed. If I can be of further assistance, please feel free to contact me at . Sincerely, Pietro Friend, 01/31/2024 1:35:49 PM This report has been signed electronically.
[2024-01-31 13:41] VITALS: BP 120/78; BP 132/78; PULSE 75; RESP 16; TEMP 36.2; O2SAT 100
[2024-01-31 14:00] VITALS: BP 132/78
--- NOTE | 2024-01-31 16:05 | PCM.POSTANE2 ---
Anesthesia Postop Eval I Sum Postop Eval Completion status Anesthesia document: Postop Eval 1 completed: Yes Anesthesia Postop Eval I Summary Anesthesia Postop Eval I Summary: Anesthesia Postop Eval I: Assessment Summary Airway patent Yes 01/31/24 13:35 [email or web address] Spontaneous unlabored Yes 01/31/24 13:35 [email or web address] respirations Mental status Awake,Calm 01/31/24 13:35 [email or web address] nausea No 01/31/24 13:35 [email or web address] Vomiting No 01/31/24 13:35 [email or web address] Anesthesia Postop Eval I: Fluid Summary Crystalloid volume administer 60 01/31/24 13:35 [email or web address] (ml) Colloids volume administered ( ml) Blood Product volume administered (ml) Total IV fluid infused 60 01/31/24 13:35 [email or web address] Anesthesia Postop Eval I: Summary Notes Anesthesia Complication Yes 01/31/24 13:35 [email or web address] Anesthesia Complication IV infiltrated and 01/31/24 13:35 [email or web address] Comment: patient awake before completion of colonoscopy Post-operative progress note Anesthesia: Postop Eval II Evaluation Mental status: Awake and Calm Pain Level: 1 nausea: No Vomiting: No Complications Anesthesia Complication: Yes Anesthesia Complication Comment:: Infiltrated IV near the end of the procedure. NOT restarted since colonoscopy was almost done.
== END 2024-01-31 14:15 | disposition home or self-care (01) ==
LOC: EN 11:19 → AC 11:20
PROVIDERS: PCP Family Medicine; Referring Provider Internal Medicine Gastroenterology; Visit Provider Internal Medicine Gastroenterology
PROC: 0DJD8ZZ Inspection of Lower Intestinal Tract, Via Natural or Artificial Opening Endoscopic (ICD-10-PCS; CPT 45378; principal; 2024-01-31 12:25)
DX: Z12.11 Encounter for screening for malignant neoplasm of colon (principal); I85.00 Esophageal varices without bleeding; K21.9 Gastro-esophageal reflux disease without esophagitis; K31.A15 Gastric intestinal metaplasia without dysplasia, involving multiple sites; K57.30 Diverticulosis of large intestine without perforation or abscess without bleeding; K31.1 Adult hypertrophic pyloric stenosis; R13.10 Dysphagia, unspecified; M81.0 Age-related osteoporosis without current pathological fracture; E03.9 Hypothyroidism, unspecified; Z79.890 Hormone replacement therapy; Z79.85 Long-term (current) use of injectable non-insulin antidiabetic drugs; Z79.899 Other long term (current) drug therapy; Z86.0101 Personal history of adenomatous and serrated colon polyps
CPT/HCPCS: G0121; 43239; 82962; 88305; 88312; 88342; A4216; J2405

== ENCOUNTER → 2024-02-06 | Outpatient (CLI) | payer MEDICARE, SELFPAY | END | disposition home or self-care (01) | LOC: NM 12:15 | PROVIDERS: PCP Family Medicine; Referring Provider Student in an Organized Health Care Education/Training Program; Visit Provider Student in an Organized Health Care Education/Training Program | DX: K21.9 Gastro-esophageal reflux disease without esophagitis (principal) | CPT/HCPCS: 78264; A9541 ==

== ENCOUNTER → 2024-02-23 | Outpatient (CLI) | payer MEDICARE, SELFPAY ==
--- NOTE | 2024-02-23 09:17 | US_ITS ---
STUDY: ABDOMINAL ULTRASOUND - RIGHT UPPER QUADRANT; ELASTOGRAPHY REASON FOR VISIT: Female, 58 years old. Gastric varices. TECHNIQUE: Ultrasound evaluation of the right upper quadrant was performed with real-time and static lewis-scale imaging. Point quantification shear wave elastography was performed (Digitiliti). TECHNICAL QUALITY: Adequate. COMPARISON: None. FINDINGS: Liver: The liver is enlarged and measures 19.4 cm. There is increased echogenicity consistent with fatty infiltration. The bile ducts are within normal limits. There is hepatic color flow. The direction of portal flow is hepatopetal. There is no demonstrated mass lesion. Median liver stiffness measured 8.63 kPa. Gallbladder: The patient is status post cholecystectomy. Common Bile Duct (C.B.D.): The common bile duct measures 9 mm. Pancreas: There is normal echogenicity of the visualized pancreas. There is no demonstrated pancreatic mass or cyst. Right Kidney: Normal size of the right kidney. The right kidney measures 10.87 x 5 cm x 4.5 cm. Normal renal cortex. The right cortex measures 1.3 cm. There is no demonstrated renal mass or cyst. There is no right hydronephrosis. US/ABD Limited w/ Elastography IMPRESSION: 1. Liver stiffness measures 8.63 kPa compatible with F2-F3 (Mild to moderate liver fibrosis) Metavir score. Electronically Signed: Zoran Fuentes MD at 13:54 EST ,
== END | disposition home or self-care (01) ==
PROVIDERS: PCP Family Medicine; Referring Provider Student in an Organized Health Care Education/Training Program; Visit Provider Student in an Organized Health Care Education/Training Program
DX: I85.00 Esophageal varices without bleeding (principal)
CPT/HCPCS: 76705; 76981

== ENCOUNTER → 2024-03-20 | Outpatient (CLI) | payer MEDICARE, SELFPAY ==
[2024-03-20 10:20] LABS: Absolute Lymphocyte Count 1.76 X10^3/uL (0.83-4.51); Absolute Neutrophil Count 2.3 X10^3/uL (2.0-7.7); Basophil# 0.05 X10^3/uL; Eosinophil# 0.38 X10^3/uL; Eosinophils% 7.6 % (0-5); Hematocrit 39.3 % (37-47); Hemoglobin 12.6 g/dL (12.0-15.0); Lymphocyte # 1.76 X10^3/ul (0.83-4.51); Lymphocyte % 35.2 % (19-41); Mean Corp Hgb Conc 32.1 g/dL (32-36); Mean Corpuscular Hgb 32.1 pg (27.0-32.0); Mean Corpuscular Volume 100.3 fL (81-99); Mean Platelet Vol. 9.2 fl (6.2-12.0); Monocyte# 0.49 X10^3/uL; Monocyte% 9.8 % (0-10); NRBC Flagged by Analyzer 0 % (0-5); Neutrophil # 2.31 X10^3/uL (2.7-7.7); Neutrophil % 46.2 % (47-70); Platelet Count 280 K/mm3 (150-450); RBC Distribution Width CV 13.4 % (11.6-14.6); RBC Distribution Width SD 49.1 fl (35.1-43.9); Red Blood Count 3.92 M/mm3 (4.2-5.4)
[2024-03-20 10:38] LABS: Vitamin D,25 Hydroxy 73.7 ng/mL
[2024-03-20 10:54] LABS: Microalbumin,Random Urine < 5.0 mg/L (NO RANGE EST.)
[2024-03-20 10:56] LABS: Ferritin 255 ng/mL (8-252); Iron 115 ug/dL (50-170); Iron Binding Capacity,Total 298 ug/dL (250-450); PERCENT IRON SATURATION 38.6 % (15.0-55.0)
== END | disposition home or self-care (01) ==
LOC: MTLAB 08:35
PROVIDERS: Internal Medicine Endocrinology, Diabetes & Metabolism; PCP Family Medicine; Referring Provider Internal Medicine Pulmonary Disease; Visit Provider Internal Medicine Pulmonary Disease
DX: G25.81 Restless legs syndrome (principal); E61.1 Iron deficiency; M81.8 Other osteoporosis without current pathological fracture; E03.9 Hypothyroidism, unspecified; R73.03 Prediabetes; E55.9 Vitamin D deficiency, unspecified
CPT/HCPCS: 36415; 82043; 82306; 82570; 82728; 83540; 83550; 85025

== ENCOUNTER 2024-04-26 09:00 | Outpatient (RCR) | payer MEDICARE, SELFPAY ==
--- NOTE | 2024-03-27 13:00 | HP.PTEVAL_ITS ---
Patient's Visit Information Visit Information Visit Information: ELICEO REY is a 58 year old F referred to Physical Therapy by Dr. Jb Trinidad DO with a diagnosis of Lumbar radiculopathy, L side. Date of Evaluation: 03/27/24 Physical Therapist: Edwin Eddy DPT Visit Plan Frequency: 2x /Week Duration: 4 Weeks Plan: 1) neutral spine core stability exercises 2) progress to dynamic movements as tolerated 3) hip stability, initially OKC progress to CKC as tolerated. 4) gait mechanics without AD 5) if needed may use ice/heat or US initially for pain control. Pt. has latex allergy HEP at IE: TA 2x10x5 + marching 2x10 + clamshell GTB +B UE extension into mat 2x10 Subjective Subjective: Pt. is here today for her initial evaluation with diagnosis of lumbar radiculopathy, L side. Pt. reports pain extends down her knee at times, but mostly in her L hip and lateral leg. Pt. has had 3 injection with 1 doing fairly well. She is following up with pain management later this month. Pt. reports no L sided weakness and no giving out on her. Pt. is currently using a FWW for balance and stability. Pt. reports pain as a 7/10 pain right now. Pt. reports mornings are very tough. Increases pain: standing longer periods of time, sitting for longer periods of time. Better if she continues to move. Pt. reports lying is best on her back or side. Pt. reports no changes in B/B. Pt. is on disability for her back pain. Pt. is going back to pain management later this month. Pt. reports mornings are rough as well. Pt. is hopeful to reduce symptoms in order to get back to all recreational activities and walking without limitations. Pain Lumbar spine: Pain Intensity (Out of 10): 7 Pain Intensity Range: 2 and 8 Objective Objective: POSTURE: Pt. has general flexed posture, normal iliac crest heights. PALPATION: Pt. has tenderness with palpation of L side of lumbar spine. NEURO: Pt. reports decreased sensation in LLE compared to R side. Most at lateral distal LEs. ROM: LUMBAR SPINE: flexion min loss mild increase NW, ext min loss NE, SB mod loss mild increase NW, rotation mod loss bilat increase NW. Pt. has great B hip ROM and HS length. No + directional preference noted. MMT: Pt. has 5/5 strength throughout distal LEs, 4-/5 hip strength with increased pain of L LE. Core strength: poor GAIT: Pt. ambulates without AD for short distances, FWW for longer distances. Pt. has flexed posture, increased B knee valgus, decreased step length and gaurded posture with gait. Balance/Special Test Scores Oswestry Low Back Score: 21 Goals Goal 1:: LTG: Pt. to be I with HEP. Goal Time Frame: 4-6 Weeks Goal 2:: LTG: Pt. to have 0-2/10 pain in lumbar spine with waking in the AMs allowing for increased quality of life. Goal Time Frame: 4-6 Weeks Goal 3:: LTG: Pt. to have increased core and hip strength increased to fair in order to reduce stress to lumbar spine. Goal Time Frame: 4-6 Weeks Goal 4:: LTG: Pt. to be able to 0-3/10 pain in L side of lumbar spine with all ADLs. Goal Time Frame: 4-6 Weeks Goal 5:: LTG: Pt. to reports reduced radicular symptoms by 75% in LLE. Goal Time Frame: 4-6 Weeks Rehabilitation Potential Physical Therapy Diagnosis: Pt. has signs and symptoms consistent with lumbar radiculopathy, L sided. Pt. did not present with a marked directional preference this date. She has decent flexibility in her hips, but has marked core weakness and hip weakness. Pt. would benefit from PT to address the above limitations progressing back to all previous levels of function. Rehabilitation Potential: Good Anticipated Interventions Patient/Client Instruction: Educate patient on: Condition, Plan of Care, Risk Factors and Benefits of Fitness Program For the Purpose of:: To facilitate caregiver knowledge, To improve self management, To prevent re-injury, To improve ability to perform tasks related to life management and To improve tolerance to ADL's Therapeutic Exercise to Include: Strength training, Power training, Postural training, Flexibilty training, Gait and locomotor training, Passive ROM, Active ROM, Dynamic Lumbar Stabilization and Sabas Exercises For the Purpose of:: To decrease pain, To increase ROM, To improve nutrient delivery to tissue, To increase oxygenation perfusion, To improve muscle performance and motor function, To improve ability to perform ADL's, To improve health of tissue, To decrease soft tissue restriction and To increase flexibility/ROM Cryotherapy (ice pack, ice massage): Yes Thermo therapy (hot pack): Yes Ultrasound (thermal/non thermal): Yes Text: Thank you for the opportunity to evaluate your patient. For Medicare and Medicare HMO plans, please review the plan of care and approve it. It will need to be FAXED BACK to us at [phone] for Medicare purposes. For Medicare only, by signing this I certify the plan of care. Please let me know if there are questions or concerns regarding this plan of care. Physician Signature: Date:
--- NOTE | 2024-04-26 09:25 | HP.PTDCSUM ---
Discharge Summary D/C summary: It has been my pleasure to treat ELICEO REY referred by Dr. Jb Trinidad DO, with the diagnosis of Lumbar radiculopathy, L side for a total of 8 visit(s). Discharge Date: 04/26/24 Please see the following information for a summary of their discharge status. Subjective Subjective: pt. reports I have my good days and bad days. Pt. reports no sleeping well, but this is normal for her. Pt. reports that stretching does help for a few hours, but days where she does a lot of exercises that evening is more painful. pt. did have injections in the past which were helpful. Pt. feels independent with her exercises at home and reports being consistent. Pain Lumbar spine: Pain Intensity (Out of 10): 6 Overall Improvement % Improvement: 25 Objective Objective/Function: ROM: LUMBAR SPINE: flexion nil loss NE, extension min loss NE, Sb nil loss bilat NE, rotation min loss NE bilat. MMT: Pt. has 5/5 strength throughout and core strength fair-. GAIT: Pt. ambulates normal with SPC with good uses. Pt. is able to ambulate without AD, but has increased lateral sway. Pt. does report having an Growth on her R foot that is painful and effecting the way she is walking. At this point in time Pt would like to continue her exercises on her own and follow up with physician to see if further injections are an option. She is doing well with ROM and strength and I am okay with DCing her HEP at this point in time. Goals Goal 1:: LTG: Pt. to be I with HEP. Goal 2:: LTG: Pt. to have 0-2/10 pain in lumbar spine with waking in the AMs allowing for increased quality of life. Goal Progress: Progressing Goal 3:: LTG: Pt. to have increased core and hip strength increased to fair in order to reduce stress to lumbar spine. Goal 4:: LTG: Pt. to be able to 0-3/10 pain in L side of lumbar spine with all ADLs. Goal Progress: Progressing Goal 5:: LTG: Pt. to reports reduced radicular symptoms by 75% in LLE. Goal Progress: Progressing Plan Plan: Pt. to be DC to HEP at this point in time. D/C Information Discharge Comments: Pt. to be DC from PT at this point in time. d/c sentence: If there are questions or concerns regarding this patient's physical therapy, please feel free to call me at [phone]. Thank you for the referral of this patient. Sincerely, Edwin Carrilloos, DPT Balance/Gait/Functional tests Balance/Special Test Scores Oswestry Low Back Score: 20 Improvement % Improvement: 25
== END 2024-04-26 19:00 | disposition home or self-care (01) ==
LOC: PT 09:00
PROVIDERS: PCP Family Medicine; Referring Provider Orthopaedic Surgery; Visit Provider Orthopaedic Surgery
DX: M54.16 Radiculopathy, lumbar region (principal)
CPT/HCPCS: 97110; 97161; 97530

== ENCOUNTER → 2024-06-13 | Outpatient (CLI) | payer MEDICARE, SELFPAY ==
--- NOTE | 2024-06-13 12:05 | BI_ITS ---
EXAM: SCRN MAMM (CAD)W/JENSEN BILAT 06/13/2024 CLINICAL HISTORY: F, Age 58 y/o , SCREENING TECHNIQUE: Bilateral screening digital breast tomosynthesis with 2D and 3D images. Computer aided detection. COMPARISON: Prior exam(s) dated 07/15/2022. FINDINGS: TISSUE DENSITY: The breast tissue is almost entirely fatty. Bilateral Breast Mammographic Findings: No significant masses, calcifications or other abnormalities are identified. BI/SCRN MAMM (CAD)W/JENSEN BILAT IMPRESSION: Right Breast: BIRADS 1 NEGATIVE. Left Breast: BIRADS 1 NEGATIVE. OVERALL FINAL ASSESSMENT: BIRADS 1 NEGATIVE. RECOMMENDATION: Routine annual follow-up in 1 Year A letter with findings and recommendations will be mailed to the patient. Reading Location: [id number]
== END | disposition home or self-care (01) ==
LOC: OPBI 12:04
PROVIDERS: PCP Family Medicine; Referring Provider Family Medicine; Visit Provider Family Medicine
DX: Z12.31 Encounter for screening mammogram for malignant neoplasm of breast (principal)
CPT/HCPCS: 77063; 77067

== ENCOUNTER 2024-10-04 09:00 | Outpatient (RCR) | payer MEDICARE, SELFPAY ==
--- NOTE | 2024-08-22 11:41 | HP.OTEVAL ---
Patient's Visit Information Visit Information Visit Information: ELICEO REY is a 59 year old F, referred to Occupational Therapy by Dr. 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 Pt saw her yesterday and d/c splint and just advised her to start early mobility by making a fist Pain dorsal hand: Current Pain Intensity: 0 Pain Intensity Range: 0 and 10 ROM Wrist: WE 30, WF 15 MP: D2 40, D3 45, D4 30, D5 40 PIP: D2 80, D3 90, D4 80, D5 75 DIP: D2 60, D3 80, D4 55, D5 75 Strength Strength Comments: TEST AT LATER DATE Edema Wrist: R 20.8cm, L 18.8CM Other: MP R 23.2, MP L 21.4, 3+ pitting dorsal hand Quick DASH-Disab of Arm,Shoulder& Hand Quick DASH Score: 60.0000 Goals Goal:: pt to regain documentation specialist strength 75% of unaffected side Goal:: pt to demo improved R WE/WF by 20' pt to demo improved R COLBY of MP joints by 50% of unaffected side Goal:: pt to demo reduced swelling at wrist and MP locations by 1.0 cm Goal:: pt to demo improved overall indep in ADL by reducing DASH score by 30 points Rehabilitation General Assessment: Pt presenting with s/p surgery for ext tendon repairs following rupture d/t arthritis. pt presenting with limited AROM and strength compared to unaffected side. Pt was d/c from splint wear yesterday per dr and advised to start therapy immediately d/t stiffness and swelling. pt advised from dr to start with AROM via making fist and MP flexion. Pt demo increased swelling through dorsal aspect of hand pitting 3+. pt ed on edema reduction techniques including retrograde massage multiple times throughout the day to prevent lymphedema. pt ed on HEP for AROM to address MP/PIP/DIP motion with blocking to isolate. Pt ed on slight movement of wrist is okay but to not flex past what she is currently capable of during daily tasks (approx 15* where it begins to pull). Pt reporting no restrictions on wrist mobility from dr at this time. Pt would benefit from skilled OT services in the OP setting for x2/week for 5 weeks for AAROM/AROM, edema control, pain management, and strengthening as she progresses to return to PLOF. Rehabilitation Potential: Good Anticipated Interventions Anticipated Interventions: A/AAROM/PROM, Strengthening, Edema Control, Scar Care, Massage, Desensitization, Modalities and Fine Motor Coord/Sage Visit Plan Frequency: 2x /Week Duration: 4-6 Weeks General Plan: continue per POC for x2/week for 4-6 weeks for improved AROM, reduced edema, and improved strength to be addressed at a later date to return to PLOF TEXT: Thank you for the opportunity to evaluate your patient. For Medicare and Medicare HMO plans, please review the plan of care and approve it. It will need to be FAXED BACK to us at [phone] for Medicare purposes. Please let me know if there are questions or concerns regarding this plan of care. Physician Signature: Date:
--- NOTE | 2024-09-19 11:24 | OTREVAL_ITS ---
Re-Evaluation Intro: Dr. Tim Lee MD, It has been my pleasure to treat ELICEO REY over the last 8 visits for R wrist extensor tensosynovectomy and repair of extensor tendons. Please see the progress note below for an update on the occupational therapy plan of care! Subjective Subjective: pt arrives 7 weeks s/p from extensor tendon repair - states she is doing well- arrives wearing compression glove. Objective Objective/Function: t arrives to session 7 weeks s/p pt states she struggles with swelling- and trying to open pill bottles. pt states she know she should not put resistance on daily tasks when she is using her right hand. pt states she was able to play the piano right wrist ROM 40/40 all digits demo full extension MCP on digits at 60* flexion. pt making great gains and has been able to perform ADLs and IADLs. 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 Goal:: pt to demo improved R WE/WF by 20' pt to demo improved R COLBY of MP joints by 50% of unaffected side Goal:: pt to demo reduced swelling at wrist and MP locations by 1.0 cm Goal:: pt to demo improved overall indep in ADL by reducing DASH score by 30 points Anticipated Interventions Anticipated Interventions Anticipated Interventions: A/AAROM/PROM, Strengthening, Edema Control, Scar Care, Massage, Desensitization, Modalities and Fine Motor Coord/Sage Re-Evaluation Ending Re-evaluation ending: Please do not hesitate to contact me at [phone] by phone or if you have questions or concerns regarding this new plan of care! Sincerely, Erin Grover, PAMR/L, CHT
--- NOTE | 2024-10-04 13:34 | HP.OTDCSUM_ITS ---
Discharge Summary D/C Summary: It has been my pleasure to treat ELICEO REY under orders from Dr. Tim Lee MD, for the diagnosis of R wrist extensor tensosynovectomy and repair of extensor tendons for a total of 10 visit(s). Please see the following information for a summary of their discharge status. 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 pt demo understanding of HEP and agree to D.C. 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 D/C Information Discharge Comments: pt has met OT goals and agrees to D/C. d/c sentence: If there are questions or concerns regarding this patient's occupational therapy, please fell free to call me at [phone]. Thank you for the referral of this patient. Sincerely, Erin Grover, OTR/L, CHT
== END 2024-10-04 19:00 | disposition home or self-care (01) ==
LOC: OT 09:00
PROVIDERS: PCP Family Medicine; Referring Provider Orthopaedic Surgery Hand Surgery; Visit Provider Orthopaedic Surgery Hand Surgery
DX: M65.841 Other synovitis and tenosynovitis, right hand (principal)
CPT/HCPCS: 97110; 97140; 97165; 97530

== ENCOUNTER → 2024-12-18 | Outpatient (CLI) | payer MEDICARE, SELFPAY | END | disposition home or self-care (01) | LOC: RAD.FUTURE 15:20 → MTRAD 15:33 | PROVIDERS: PCP Family Medicine; Referring Provider Nurse Practitioner Family; Visit Provider Nurse Practitioner Family | DX: R05.9 Cough, unspecified (principal) | CPT/HCPCS: 71046 ==

== ENCOUNTER 2025-01-03 08:11 | Outpatient (CLI) | payer MEDICARE, SELFPAY ==
[2025-01-03 08:18] VITALS: BP 128/73; PULSE 89; RESP 16; TEMP 35.6; O2SAT 100
== END 2025-01-03 23:59 | disposition home or self-care (01) ==
LOC: MEDOUTP 08:12
PROVIDERS: PCP Family Medicine; Referring Provider Internal Medicine Endocrinology, Diabetes & Metabolism; Visit Provider Internal Medicine Endocrinology, Diabetes & Metabolism
DX: M81.0 Age-related osteoporosis without current pathological fracture (principal)
CPT/HCPCS: 96372; J3111